=== PATIENT | female | born 1970 | race Caucasian/White ===

== ENCOUNTER 2018-05-11 18:15 | Observation (INO) | payer OTHER ==
--- NOTE | 2018-05-11 20:43 | XR ---
EXAMINATION TYPE: XR chest 1V portable DATE OF EXAM: 05/11/2018 COMPARISON: NONE HISTORY: Short of breath TECHNIQUE: Single frontal view of the chest is obtained. FINDINGS: There is complete opacification left hemithorax. Heart and mediastinum are shifted slightl y to the right side. Right lung is clear. There is no heart failure. Bony thorax is intact. IMPRESSION: Tension left side hydrothorax.
--- NOTE | 2018-05-11 20:43 | XR ---
EXAMINATION TYPE: XR chest 2V DATE OF EXAM: 05/11/2018 COMPARISON: Today HISTORY: Pain TECHNIQUE: Frontal and lateral views of the chest are obtained. FINDINGS: There is complete opacification left hemithorax. Heart and mediastinum are deviated slight ly to the right side. Right lung is clear. There is no heart failure. IMPRESSION: There is tension left side hydrothorax. No change compared to exam 20 minutes ago.
[2018-05-11 21:06] LABS: Basophils % (A) 0 %; Eosinophils # (A) 0.2 k/uL (0-0.7); Eosinophils % (A) 2 %; HGB 14.7 gm/dL (11.4-16.0); Lymphocytes % (A) 12 %; MCH 28.5 pg (25.0-35.0); MCV 88.9 fL (80.0-100.0); Mean Platelet Volume 7.6; Monocytes # (A) 0.4 k/uL (0-1.0); Monocytes % (A) 5 %; Neutrophils # (A) 6.9 k/uL (1.3-7.7); Neutrophils % (A) 80 %; Platelet Count 243 k/uL (150-450); RBC 5.18 m/uL (3.80-5.40); RDW 13.4 % (11.5-15.5); WBC 8.6 k/uL (3.8-10.6)
[2018-05-11] MEDS: SODIUM CHLORIDE 0.9% 1,000 ML IV STA ×2 (21:09→21:12)
[2018-05-11] MEDS ORDERED: SODIUM CHLORIDE 0.9% 500 ML 500 ML IV ONE (21:13)
--- NOTE | 2018-05-11 21:14 | ED ---
Medical Decision Making - Medical Decision Making I, Mike Cohen, personally saw and examined the patient. I have reviewed and agree with the PA findings, including all diagnostic interpretations and treatment plans as written unless otherwise stated. I was present for the gonzalez portions of any procedures performed and the inclusive time noted for any critical care statement. - Lab Data Result diagrams: 05/13/18 06:26 12 06:26 Disposition Clinical Impression: Hydrothorax, Dyspnea Disposition: ADMITTED IP TO THIS [facility] Condition: Good
[2018-05-11 21:15] LABS: ALT 31 U/L (9-52); AST 18 U/L (14-36); Albumin 4.5 g/dL (3.5-5.0); Alkaline Phosphatase 81 U/L (38-126); Anion Gap 9 mmol/L; Blood Urea Nitrogen 12 mg/dL (7-17); Calcium 9.9 mg/dL (8.4-10.2); Carbon Dioxide 25 mmol/L (22-30); Chloride 108 mmol/L (98-107); Glucose 122 mg/dL (74-99); Potassium 4.1 mmol/L (3.5-5.1); Sodium 142 mmol/L (137-145); Total Bilirubin 0.8 mg/dL (0.2-1.3); Total Protein 7.8 g/dL (6.3-8.2)
--- NOTE | 2018-05-11 22:16 | ED ---
General Adult HPI - General Chief complaint: Shortness of Breath Stated complaint: poss collapsed lung Source: patient, RN notes reviewed, old records reviewed Mode of arrival: wheelchair Limitations: no limitations - History of Present Illness Initial comments: 48-year-old female patient with no pertinent past medical history presents to ED with approximately 1 month of shortness of breath. Patient was seen by her primary care physician today, PCP today chest x-ray, displayed abnormal findings recommended patient to present to ED. Patient was evaluated by her primary care physician approximately 1 month ago, patient was diagnosed with bronchitis. Patient has had persistent shortness of breath duration of last month. Patient has additionally had waxing and waning productive cough for the last month. Patient denies chest pain, abdominal pain, nausea vomiting diarrhea , fever or chills. Systemic: Pt denies fatigue, myalgia, fever/chills, rash. Pt denies weakness, night sweats, weight loss. Neuro: Pt denies headache, visual disturbances, syncope or pre-syncope. HEENT: Pt denies ocular discharge or irritation, otalgia, rhinorrhea, pharyngitis or notable lymphadenopathy. Cardiopulmonary: Pt denies chest pain, SOB, heart palpitations, dyspnea on exertion. Abdominal/GI: Pt denies abdominal pain, n/v/d. : Pt denies dysuria, burning w/ urination, frequency/urgency. Denies new onset urinary or bowel incontinence. MSK: Pt denies myalgia, loss of strength or function in extremities. Neuro: Pt denies new onset weakness, paresthesias. - Related Data Home Medications Medication Instructions Recorded Confirmed Ibuprofen [Motrin Ib] 400 mg PO Q6H 05/11/18 05/11/18 Allergies Allergy/AdvReac Type Severity Reaction Status Date / Time No Known Allergies Allergy Verified 05/11/18 20:39 Review of Systems ROS Statement: Those systems with pertinent positive or pertinent negative responses have been documented in the HPI. ROS Other: All systems not noted in ROS Statement are negative. Past Medical History Past Medical History: No Reported History History of Any Multi-Drug Resistant Organisms: None Reported Past Surgical History: No Surgical Hx Reported Past Psychological History: No Psychological Hx Reported Smoking Status: Never smoker Past Alcohol Use History: None Reported Past Drug Use History: None Reported General Exam - General Exam Comments Initial Comments: Constitutional: NAD, AOX3, Pt has pleasant affect. HEENT: NC/AT, trachea midline, neck supple, no lymphadenopathy. Posterior pharynx non erythematous, without exudates. External ears appear normal, without discharge. Mucous membranes moist. Eyes PERRLA, EOM intact. There is no scleral icterus. No pallor noted. Cardiopulmonary: RRR, no murmurs, rubs or gallops, no JVD noted. Lungs CTA be in anterior and posterior galvin of right lobe, diminished breath sounds anteriorly and posteriorly and left lobe. No peripheral edema. Abdominal exam: Abdomen soft and non-distended. Abdomen non-tender to palpation in all 4 quadrants. Bowel sounds active in LLQ. No hepatosplenomegaly. No ecchymosis Neuro: CN II-XII grossly intact. No nuchal rigidity. MSK: No posterior calf tenderness bilaterally, homans sign negative bilaterally. Posterior tibialis and radial pulse +2 bilaterally. Sensation intact in upper and lower extremities. Full active ROM in upper and lower extremities, 5/5 stregnth. Limitations: no limitations Course Vital Signs 05/11/18 05/11/18 05/11/18 18:49 20:36 21:21 Temperature 99.3 F Pulse Rate 87 84 86 Respiratory 20 20 18 Rate Blood Pressure 167/92 175/91 152/83 O2 Sat by Pulse 95 96 97 Oximetry 05/11/18 23:30 Temperature Pulse Rate 84 Respiratory 20 Rate Blood Pressure 157/100 O2 Sat by Pulse 96 Oximetry Medical Decision Making - Medical Decision Making 48-year-old female patient with no pertinent past medical history presents to ED with approximately 1 month of shortness of breath. Patient was seen by her primary care physician today, PCP today chest x-ray, displayed abnormal findings recommended patient to present to ED. Patient was evaluated by her primary care physician approximately 1 month ago, patient was diagnosed with bronchitis. Patient has had persistent shortness of breath duration of last month. Patient has additionally had waxing and waning productive cough for the last month. Patient had recent azithromycin antibiotic treatment. Patient denies chest pain, abdominal pain, nausea vomiting diarrhea, fever or chills. Physical exam displayed denies profound in left lobe. No other pathologic findings noted. Plain films displayed tension left hydrothorax. CT anterior displayed left-sided hydro-thorax that waxes left lung. No sample embolism. There is mild tension left hydrothorax. Pericardial effusion. CBC was not impressive. CMP was non-impressive. Troponin negative. BNP within normal limits. Patient to be admitted for further evaluation. Case discussed with Dr. Cohen. - Lab Data Result diagrams: 05/11/18 20:55 05/11/18 20:55 Lab Results 05/11/18 05/11/18 05/11/18 Range/Units 20:55 20:55 20:55 WBC 8.6 (3.8-10.6) k/uL RBC 5.18 (3.80-5.40) m/uL Hgb 14.7 (11.4-16.0) gm/dL Hct 46.0 (34.0-46.0) % MCV 88.9 (80.0-100.0) fL MCH 28.5 (25.0-35.0) pg MCHC 32.0 (31.0-37.0) g/dL RDW 13.4 (11.5-15.5) % Plt Count 243 (150-450) k/uL Neutrophils % 80 % Lymphocytes % 12 % Monocytes % 5 % Eosinophils % 2 % Basophils % 0 % Neutrophils # 6.9 (1.3-7.7) k/uL Lymphocytes # 1.0 (1.0-4.8) k/uL Monocytes # 0.4 (0-1.0) k/uL Eosinophils # 0.2 (0-0.7) k/uL Basophils # 0.0 (0-0.2) k/uL Sodium 142 (137-145) mmol/L Potassium 4.1 (3.5-5.1) mmol/L Chloride 108 H (98-107) mmol/L Carbon Dioxide 25 (22-30) mmol/L Anion Gap 9 mmol/L BUN 12 (7-17) mg/dL Creatinine 0.82 (0.52-1.04) mg/dL Est GFR (CKD-EPI)AfAm >90 (>60 ml/min/1.73 sqM) Est GFR (CKD-EPI)NonAf 84 (>60 ml/min/1.73 sqM) Glucose 122 H (74-99) mg/dL Calcium 9.9 (8.4-10.2) mg/dL Total Bilirubin 0.8 (0.2-1.3) mg/dL AST 18 (14-36) U/L ALT 31 (9-52) U/L Alkaline Phosphatase 81 (38-126) U/L Troponin I <0.012 (0.000-0.034) ng/mL NT-Pro-B Natriuret Pep pg/mL Total Protein 7.8 (6.3-8.2) g/dL Albumin 4.5 (3.5-5.0) g/dL 05/11/18 Range/Units 20:55 WBC (3.8-10.6) k/uL RBC (3.80-5.40) m/uL Hgb (11.4-16.0) gm/dL Hct (34.0-46.0) % MCV (80.0-100.0) fL MCH (25.0-35.0) pg MCHC (31.0-37.0) g/dL RDW (11.5-15.5) % Plt Count (150-450) k/uL Neutrophils % % Lymphocytes % % Monocytes % % Eosinophils % % Basophils % % Neutrophils # (1.3-7.7) k/uL Lymphocytes # (1.0-4.8) k/uL Monocytes # (0-1.0) k/uL Eosinophils # (0-0.7) k/uL Basophils # (0-0.2) k/uL Sodium (137-145) mmol/L Potassium (3.5-5.1) mmol/L Chloride (98-107) mmol/L Carbon Dioxide (22-30) mmol/L Anion Gap mmol/L BUN (7-17) mg/dL Creatinine (0.52-1.04) mg/dL Est GFR (CKD-EPI)AfAm (>60 ml/min/1.73 sqM) Est GFR (CKD-EPI)NonAf (>60 ml/min/1.73 sqM) Glucose (74-99) mg/dL Calcium (8.4-10.2) mg/dL Total Bilirubin (0.2-1.3) mg/dL AST (14-36) U/L ALT (9-52) U/L Alkaline Phosphatase (38-126) U/L Troponin I (0.000-0.034) ng/mL NT-Pro-B Natriuret Pep 54 pg/mL Total Protein (6.3-8.2) g/dL Albumin (3.5-5.0) g/dL - EKG Data -: EKG Interpreted by Me EKG Comments: Ventricular rate 80, PA interval 124, QRS 82, QT/QTc is unsuccessful at 33. Disposition Clinical Impression: Hydrothorax Disposition: ADMITTED IP TO THIS HOSP Condition: Good Is patient prescribed a controlled substance at d/c from ED?: No Referrals: Al Lezama DO [Primary Care Provider] - 1-2 days Decision Time: 23:21
--- NOTE | 2018-05-11 23:04 | CT ---
EXAMINATION TYPE: CT chest angio for PE DATE OF EXAM: 05/11/2018 COMPARISON: None HISTORY: SOB CT DLP: 672.5 mGycm Automated exposure control for dose reduction was used. CONTRAST: CT Chest for pulmonary embolism performed with with IV Contrast, patient injected with 100 mL of Isov ue 370. FINDINGS: There are 3-D post processed images. There is essentially complete opacification left hemithorax. The re is a large left pleural effusion. There is complete atelectasis left lung. Left mainstem bronchus is patent. Heart and mediastinum are shifted to the right side. There is an enlarged right bronchial lymph node measures 2.4 cm. I see no mass at the left pulmonary hilum. There is enlarged 2 cm pretrac heal lymph node. I see no filling defects in the pulmonary arteries. Thoracic aorta shows no sign of aneurysm or dissection. The right lung is clear of consolidation. There is no pleural fluid on the ri ght side.. There is fluid around the heart that measures 1.5 cm. Bony thorax is intact. IMPRESSION: Left-sided hydrothorax with atelectasis left lung. No evidence of pulmonary embolism. There is mild t ension left hydrothorax. Pericardial effusion. Cardiomegaly. Nonspecific enlarged lymph nodes.
[2018-05-11] MEDS ORDERED: ACETAMINOPHEN TAB 325 MG TAB PO PRN (23:13)
[2018-05-11] MEDS ORDERED: NALOXONE 0.4 MG/ML 1 ML VIAL IV PRN (23:13)
[2018-05-11] MEDS ORDERED: IBUPROFEN 400 MG TAB PO PRN (23:13)
--- NOTE | 2018-05-12 01:49 | US ---
EXAMINATION TYPE: US chest DATE OF EXAM: 05/12/2018 COMPARISON: NONE CLINICAL HISTORY: Pain. Pleural effusion. TECHNIQUE: Targeted ultrasound of the posterior lower left hemithorax EXAM MEASUREMENTS: Left Pleural Effusion pocket size: 12.1 cm Left skin surface to fluid distance: 5.6 cm Left side marked for possible thoracentesis outside the dept. Pulmonologists are able to review the images in the patient?s EMR. IMPRESSIONS: There is demonstration of a large left pleural effusion. Left lung appears collapsed.
[2018-05-12 02:12] VITALS: RESP 16
[2018-05-12] MEDS ORDERED: ALPRAZolam 0.25 MG TAB PO PRN (02:22)
[2018-05-12 07:39] LABS: Basophils % (A) 0 %; Eosinophils # (A) 0.2 k/uL (0-0.7); Eosinophils % (A) 2 %; HCT 45.2 % (34.0-46.0); HGB 14.8 gm/dL (11.4-16.0); Lymphocytes % (A) 13 %; MCH 29.6 pg (25.0-35.0); MCHC 32.6 g/dL (31.0-37.0); MCV 90.7 fL (80.0-100.0); Mean Platelet Volume 7.8; Monocytes # (A) 0.4 k/uL (0-1.0); Monocytes % (A) 6 %; Neutrophils % (A) 77 %; Platelet Count 218 k/uL (150-450); RBC 4.99 m/uL (3.80-5.40); RDW 13.5 % (11.5-15.5); WBC 7.7 k/uL (3.8-10.6)
[2018-05-12 07:48] LABS: Anion Gap 7 mmol/L; Blood Urea Nitrogen 10 mg/dL (7-17); Calcium 9.6 mg/dL (8.4-10.2); Carbon Dioxide 28 mmol/L (22-30); Chloride 108 mmol/L (98-107); Glucose 94 mg/dL (74-99); Potassium 4.3 mmol/L (3.5-5.1); Sodium 143 mmol/L (137-145)
[2018-05-12] MEDS ORDERED: LIDOCAINE 1% INJ 10MG/ML (20 ML MDV) SQ ONE (09:12)
[2018-05-12] MEDS ORDERED: IPRATROPIUM-ALBUTEROL 3 ML NEB INHALATION PRN (10:55)
--- NOTE | 2018-05-12 10:55 | P.HPIM ---
History of Present Illness H&P Date: 05/12/18 This is a very pleasant 48-year-old female with no significant past medical history comes into the ER for above-mentioned complaints. Patient says that she 's been following with her PCP in 1 month for cough which the PCP diagnosed as bronchitis and she was put on steroids, Z-Peter, breathing treatments. The symptoms are not improving so the PCP decided to do a chest x-ray which was done yesterday. The chest x-ray came abnormal according to the patient to the PCV7 the patient earlier for further evaluation and management with patient says that she's been having cough since about 1 month which is productive of greenish phlegm in the morning but otherwise is dry most of the day. She is complaining of shortness of breath on exertion but at rest she is okay. She otherwise does not complain of any chest pain, racing heart, no bowel pain, no nausea or vomiting, or diarrhea constipation, no tingling numbness of any of the extremities, no itch no rash. She does not complain of any fever or chills REVIEW OF SYSTEMS: ENT: No diminished vision or hearing. CARDIOVASCULAR: No chest pain or racing heart RESPIRATORY: As mentioned earlier. GI: No nauscea, vomiting or diarrhea. : No dysuria or retention. NERVOUS SYSTEM: No numbness or weakness. ALLERGY/IMMUNOLOGY: No asthma or hay fever. MUSCULOSKELETAL: Pain in the right rib while coughing but otherwise no significant pain. HEMATOLOGY/ONCOLOGY: No history of anemia. ENDOCRINE: No history of diabetes or hypothyroidism. DERMATOLOGY: Negative. RHEUMATOLOGY: Negative. Review of Systems All systems: negative Past Medical History Past Medical History: No Reported History History of Any Multi-Drug Resistant Organisms: None Reported Past Surgical History: No Surgical Hx Reported Past Anesthesia/Blood Transfusion Reactions: No Reported Reaction Past Psychological History: No Psychological Hx Reported Smoking Status: Never smoker Past Alcohol Use History: None Reported Past Drug Use History: None Reported - Past Family History Mother Additional Family Medical History / Comment(s): 2009 heart valve replaced Father Family Medical History: No Reported History Medications and Allergies Home Medications Medication Instructions Recorded Confirmed Type Ibuprofen [Motrin Ib] 400 mg PO Q6H 05/11/18 05/11/18 History Allergies Allergy/AdvReac Type Severity Reaction Status Date / Time No Known Allergies Allergy Verified 05/11/18 20:39 Physical Exam Vitals: Vital Signs Temp Pulse Pulse Resp BP BP Pulse Ox 05/12/18 07:45 96.3 F L 76 16 182/78 96 05/12/18 02:16 173/76 05/12/18 02:00 98.2 F 79 16 175/86 95 05/12/18 01:44 159/87 05/12/18 01:40 97.8 F 73 18 96 05/12/18 00:00 80 17 177/96 97 05/11/18 23:30 84 20 157/100 96 05/11/18 22:01 78 16 152/83 97 05/11/18 21:21 86 18 152/83 97 05/11/18 20:36 84 20 175/91 96 05/11/18 18:49 99.3 F 87 20 167/92 95 Intake and Output 05/11/18 05/12/18 05/12/18 22:59 06:59 14:59 Intake Total 530 220 Balance 530 220 Intake: Intake, IV Titration 50 Amount cefTRIAXone 1,000 mg In 50 Sodium Chloride 0.9% 50 ml @ 100 mls/hr IVPB Q24H [facility] Rx#:[id number] Oral 480 220 Other: # Voids 1 Weight 113.398 kg On exam, alert and oriented x3. HEENT: Conjunctivae normal. eyes normal. NECK: No JVD. No thyroid enlargement. No LNs CARDIOVASCULAR: S1, S2 muffled. No murmur RESPIRATION: Breath sounds diminished on the left side. Otherwise there is no rhonchi no rales no wheezing ABDOMEN: Soft, nontender . No guarding. no masses palpable. No ascites, No hepatosplenomegaly.Bowel sounds heard. LEGS: No edema. no swelling NERVOUS SYSTEM: Cranial N 2-12 grossly normal. Moves all 4 limbs. No focal deficits. No sensory deficit. No signs of cerebellar dysfucntion. Skin: no ulcer no rash Joints: No active swelling. No inflammation. Lymphatic system. No LN neck axilla or groin. Results CBC & Chem 7: 05/12/18 07:17 05/12/18 07:17 Labs: Abnormal Lab Results - Last 24 Hours (Table) 05/11/18 05/12/18 Range/Units 20:55 07:17 Chloride 108 H 108 H (98-107) mmol/L Glucose 122 H (74-99) mg/dL Thrombosis Risk Factor Assmnt - Choose All That Apply Any of the Below Risk Factors Present?: Yes Each Factor Represents 1 point: Age 41-60 years Other Risk Factors: No Thrombosis Risk Factor Assessment Total Risk Factor Score: 1 Thrombosis Risk Factor Assessment Level: Low Risk Assessment and Plan Assessment: - Left-sided hydrothorax - Been treated as an outpatient for possible bronchitis - Obesity - Hypertension while in the hospital but otherwise patient has no history of hypertension Plan: - Patient has been admitted to [facility] - Pulmonology is consulted who are actually seeing the patient without medication - Further recommendations regarding antibiotic and further plan of care as per pulmonology recommendation - Patient blood pressure is high and his stay. We'll keep a watch the patient' s blood pressure. If it continues to be high then patient might need to be put on antihypertensives - Hold off chemical DVT prophylaxis as the patient will probably end up getting thoracentesis - We'll order for lab work in the morning - Expected length of stay is more than 2 midnights - Patient is full code Time with Patient: Greater than 30
--- NOTE | 2018-05-12 11:48 | XR ---
EXAMINATION TYPE: XR chest 1V portable DATE OF EXAM: 05/12/2018 COMPARISON: Abnormal x-ray HISTORY: Attempted left thoracentesis TECHNIQUE: Single frontal view of the chest is obtained. FINDINGS: There is complete opacification left hemithorax. Subsegmental changes involving the right lung base are stable. Suspect the heart size is limited. No obvious pneumothorax. IMPRESSION: Persistent complete opacification left hemithorax. No sizable pneumothorax. Right basila r subsegmental changes are stable.
[2018-05-12] MEDS ORDERED: hydrALAZINE HCL 20 MG/ML 1 ML VIAL IVP PRN (12:02)
--- NOTE | 2018-05-12 12:16 | ECHOF ---
Referral Reason:lv function MEASUREMENTS -------- HEIGHT: 162.6 cm WEIGHT: 113.4 kg BP: 173/76 IVSd: 1.4 cm (0.6 - 1.1) LVIDd: 5.2 cm (3.9 - 5.3) LVPWd: 1.1 cm (0.6 - 1.1) IVSs: 1.3 cm LVIDs: 2.8 cm LVPWs: 1.6 cm MV E Lawson: 1.03 m/s MV DecT: 189 ms MV A Lawson: 1.26 m/s MV E/A Ratio: 0.82 RAP: 5.00 mmHg RVSP: 11.42 mmHg FINDINGS -------- Sinus rhythm. This was a technically difficult study with suboptimal views. The left ventricular size is normal. There is mild concentric left ventricular hypertrophy. Overa ll left ventricular systolic function is normal with, an EF between 55 - 60 %. The RV was not well visualized. The left atrium was not well visualized. The right atrium was not well visualized. Lumason used The aortic valve was not well visualized. The mitral valve was not well visualized. The tricuspid valve was not well visualized. The pulmonic valve was not well visualized. There is a small, generalized pericardial effusion present. Large Pleural Effusion. CONCLUSIONS -------- 1. Sinus rhythm. 2. This was a technically difficult study with suboptimal views. 3. The left ventricular size is normal. 4. There is mild concentric left ventricular hypertrophy. 5. Overall left ventricular systolic function is normal with, an EF between 55 - 60 %. 6. The RV was not well visualized. 7. The left atrium was not well visualized. 8. The right atrium was not well visualized. 9. Lumason used 10. The aortic valve was not well visualized. 11. The mitral valve was not well visualized. 12. The tricuspid valve was not well visualized. 13. The pulmonic valve was not well visualized. 14. There is a small, generalized pericardial effusion present. 15. Large Pleural Effusion. IC ENGINEER: Christine Myers [facility]
[2018-05-12 13:21] LABS: Prothrombin Time 10.9 sec (9.0-12.0)
--- NOTE | 2018-05-12 14:09 | P.GSCN ---
History of Present Illness Consult date: 05/12/18 Reason for Consult: Hydrothorax History of present illness: This is a 48-year-old female who is admitted to the hospital for workup of shortness of breath. Patient underwent CT and chest x-rays found have a left hydrothorax. Past Medical History Past Medical History: No Reported History History of Any Multi-Drug Resistant Organisms: None Reported Past Surgical History: No Surgical Hx Reported Past Anesthesia/Blood Transfusion Reactions: No Reported Reaction Past Psychological History: No Psychological Hx Reported Smoking Status: Never smoker Past Alcohol Use History: None Reported Past Drug Use History: None Reported - Past Family History Mother Additional Family Medical History / Comment(s): 2008 heart valve replaced Father Family Medical History: No Reported History Medications and Allergies Home Medications Medication Instructions Recorded Confirmed Type Ibuprofen [Motrin Ib] 400 mg PO Q6H 05/11/18 05/11/18 History Allergies Allergy/AdvReac Type Severity Reaction Status Date / Time No Known Allergies Allergy Verified 05/11/18 20:39 Surgical - Exam Vital Signs Temp Pulse Resp BP Pulse Ox 99.3 F 87 20 167/92 95 05/11/18 18:49 05/11/18 18:49 05/11/18 18:49 05/11/18 18:49 05/11/18 18:49 - General well developed, no distress - Eyes PERRL - ENT normal pinna - Neck no masses - Respiratory normal expansion - Cardiovascular Rhythm: regular - Abdomen Abdomen: soft, non tender Results - Labs 05/12/18 07:17 05/12/18 07:17 Abnormal Lab Results - Last 24 Hours (Table) 05/11/18 05/12/18 Range/Units 20:55 07:17 Chloride 108 H 108 H (98-107) mmol/L Glucose 122 H (74-99) mg/dL Diabetes panel 05/11/18 05/12/18 05/12/18 Range/Units 20:55 07:17 07:17 Sodium 142 143 (137-145) mmol/L Potassium 4.1 4.3 (3.5-5.1) mmol/L Chloride 108 H 108 H (98-107) mmol/L Carbon Dioxide 25 28 (22-30) mmol/L BUN 12 10 (7-17) mg/dL Creatinine 0.82 0.85 (0.52-1.04) mg/dL Glucose 122 H 94 (74-99) mg/dL Calcium 9.9 9.6 (8.4-10.2) mg/dL AST 18 (14-36) U/L ALT 31 (9-52) U/L Alkaline Phosphatase 81 (38-126) U/L Total Protein 7.8 7.0 (6.3-8.2) g/dL Albumin 4.5 (3.5-5.0) g/dL Calcium panel 05/11/18 05/12/18 Range/Units 20:55 07:17 Calcium 9.9 9.6 (8.4-10.2) mg/dL Albumin 4.5 (3.5-5.0) g/dL Pituitary panel 05/11/18 05/12/18 Range/Units 20:55 07:17 Sodium 142 143 (137-145) mmol/L Potassium 4.1 4.3 (3.5-5.1) mmol/L Chloride 108 H 108 H (98-107) mmol/L Carbon Dioxide 25 28 (22-30) mmol/L BUN 12 10 (7-17) mg/dL Creatinine 0.82 0.85 (0.52-1.04) mg/dL Glucose 122 H 94 (74-99) mg/dL Calcium 9.9 9.6 (8.4-10.2) mg/dL Adrenal panel 05/11/18 05/12/18 05/12/18 Range/Units 20:55 07:17 07:17 Sodium 142 143 (137-145) mmol/L Potassium 4.1 4.3 (3.5-5.1) mmol/L Chloride 108 H 108 H (98-107) mmol/L Carbon Dioxide 25 28 (22-30) mmol/L BUN 12 10 (7-17) mg/dL Creatinine 0.82 0.85 (0.52-1.04) mg/dL Glucose 122 H 94 (74-99) mg/dL Calcium 9.9 9.6 (8.4-10.2) mg/dL Total Bilirubin 0.8 (0.2-1.3) mg/dL AST 18 (14-36) U/L ALT 31 (9-52) U/L Alkaline Phosphatase 81 (38-126) U/L Total Protein 7.8 7.0 (6.3-8.2) g/dL Albumin 4.5 (3.5-5.0) g/dL Assessment and Plan Assessment: Left hydrothorax. Patient will be evaluated by pulmonology. She'll most likely have a chest tube placed. We will remain on surgical standby.
--- NOTE | 2018-05-12 15:25 | CONS ---
CONSULTATION DATE OF SERVICE: 05/12/2018 This is a very pleasant 48-year-old female who has been struggling with difficulty breathing for some time now. It has probably been going on for months, maybe 6 or so. When she sits, she is not short of breath. When she exerts herself, even minimal exertion, becomes very short of breath. Over the course of the last 4-6 weeks or so, she has been seeing her primary doctor. The primary doctor is out in the [place] in [place], [place]. Anyway, the patient states that she has received numerous courses of antibiotics, steroids and other treatments and despite that, has not improved. In fact, she continued to get worse. Hence, chest x-ray was done which showed complete opacification of the left hemithorax and the patient was sent to the emergency room for evaluation. There she had a couple of chest x-rays and a CT scan of the chest. She was seen there by Dr. Telles and by another physician there. Anyway, she was admitted to the hospital with a diagnosis of large left pleural effusion. The patient denies other complaints. No fever, no chills. No weight loss. No nausea, vomiting or diarrhea. Her past medical and past surgical history is unremarkable. HOME MEDICATIONS: Only include Motrin. No known allergies. SOCIAL HISTORY: Negative for tobacco, alcohol, or illicit drug use. Family history is not commented on. She has a pretty benign history. REVIEW OF SYSTEMS: CONSTITUTIONAL: Negative. NEUROLOGIC: Negative. HEENT: Negative. CARDIOVASCULAR: Negative. PULMONARY: Shortness of breath. GI/: Negative. RHEUMATOLOGIC: Negative. HEMATOLOGIC: Negative. ENDOCRINOLOGIC: Negative. DERMATOLOGIC: Negative. Current vital signs are reviewed. Temperature 96.3, heart rate 76, respiratory rate 16, blood pressure 182/78 mean 112, room air saturation 96%. She appears in no acute distress. No respiratory distress. No audible wheezing. No use of accessory muscles. HEENT examination is grossly unremarkable. Mucous membranes are moist. No oral lesions. NECK: Supple. Full range of motion. No adenopathy or thyromegaly. Neck veins are flat. Cardiovascular examination reveals regular rhythm and rate. Heart rate 76. S1, S2 normal. No murmur. Lungs reveal severely diminished and dull breath sounds on the left side. There is dullness on percussion on the left side. No crackles or wheezes. No rhonchi. The right lung is relatively clear. Abdomen is soft but obese. Bowel sounds are heard. Extremities are intact. No cyanosis, clubbing, or edema. Skin without lesions. Neurologic examination is brief but nonfocal. LAB DATA: Reviewed. CBC is completely normal. Sodium and potassium normal. Chloride is 108, CO2 is 28, anion gap is 7. BUN and creatinine were 10 and 0.85. The rest of the labs look good. Microbiologic studies are pending or negative. Chest x-ray shows a complete opacification of left hemothorax. Likewise, this is seen on the CT scan. A CT angiogram suggests left-sided hydrothorax with atelectasis of the left lung. There was mild tension and left hydrothorax. No evidence of pulmonary embolism. Mildly nonspecific enlarged lymph nodes. There was a pericardial effusion as well. Medications are reviewed. She is currently on Tylenol, Xanax, Rocephin, hydralazine, Motrin, updrafts, lidocaine, Narcan, and an IV. ASSESSMENT: 1. Relatively new onset large left pleural effusion of unclear etiology. Malignancy and infection are the most likely etiologies. 2. No past medical history to speak of. 3. Lifelong nonsmoker. 4. Obesity. PLAN: We will attempt a thoracentesis. Additional recommendations and suggestions are forthcoming. The medications currently are appropriate. Depending on the results of the thoracentesis, additional recommendations will be made. MMODL / IJN: [id number] /
--- NOTE | 2018-05-12 16:10 | XR ---
EXAMINATION TYPE: XR chest 1V portable DATE OF EXAM: 05/12/2018 COMPARISON: 05/12/2018 HISTORY: Large left pleural effusion TECHNIQUE: Single frontal view of the chest is obtained. FINDINGS: There is a interval noticeable improvement with some persistent residual density particula rly within the left upper lobe. Right lung is clear. Heart remains enlarged and there is elevation le ft hemidiaphragm. No sizable pneumothorax. IMPRESSION: 1. Interval improvement in amount of pleural fluid. Residual consolidation noted. Consider bronchosco py. 2. No evidence of pneumothorax.
[2018-05-12 17:34] LABS: Appearance,BF Hazy; Color,BF Yellow; Nucleated Cells, Body Fluid 820 /uL; RBC, Body Fluid 585 /uL
[2018-05-12 17:36] LABS: Mononuclear WBC,Body Fluid 98 %; Polynuclear WBC,Body Fluid 1 %; Total Cells Counted,Body Fluid 100
--- NOTE | 2018-05-12 18:49 | PCN ---
PROCEDURE NOTE PROCEDURE: Left thoracentesis. PREOP DIAGNOSIS: Left pleural effusion. POSTOP DIAGNOSIS: Left pleural effusion. Indication Pleural effusion. A time-out was completed verifying correct patient, procedure, site, positioning , and implant (s) or special equipment if applicable. Ultrasound guidance was used and appropriate fluid pocket was identified and marked. Patient was positioned, prepped and draped in usual sterile fashion. Lidocaine was used to anesthetize the area. A Thoracentesis catheter was introduced into the pleural space and fluid was removed. Blood loss was none. A chest x-ray was ordered to evaluate for pneumothorax. Total Fluid Removed: 2 or 3 mL Color of Fluid Fluid was not sent for appropriate laboratory tests. Patient tolerated the procedure well and there were no complications. There was informed consent. There was universal timeout. The posterior chest was marked by ultrasound. I made 2 attempts to remove fluid from the left pleural space. Both times, I was able to get into the pleural space with a smaller needle and removed about 2 or 3 mL of fluid, but with a large needle, I could not remove the fluid. It appears that maybe the fluid depth was such that I could not get into the pocket. Anyway, the patient tolerated the procedure well x2. There was no immediate complication. A chest x-ray was ordered. We are going to ask Interventional Radiology to see if they can drain the fluid. No fluid was sent for analysis. There was no immediate complication. MMODL / IJN: [id number] /
[2018-05-13 05:43] LABS: Total Protein, Body Fluid >2400 mg/dL
[2018-05-13 07:24] LABS: Basophils % (A) 0 %; Eosinophils # (A) 0.2 k/uL (0-0.7); Eosinophils % (A) 3 %; HGB 13.9 gm/dL (11.4-16.0); Lymphocytes % (A) 14 %; MCH 29.1 pg (25.0-35.0); MCHC 32.2 g/dL (31.0-37.0); MCV 90.3 fL (80.0-100.0); Mean Platelet Volume 7.9; Monocytes # (A) 0.5 k/uL (0-1.0); Monocytes % (A) 7 %; Neutrophils # (A) 5.6 k/uL (1.3-7.7); Neutrophils % (A) 76 %; Platelet Count 185 k/uL (150-450); RBC 4.77 m/uL (3.80-5.40); RDW 13.3 % (11.5-15.5); WBC 7.4 k/uL (3.8-10.6)
[2018-05-13 07:33] LABS: Anion Gap 6 mmol/L; Blood Urea Nitrogen 11 mg/dL (7-17); Calcium 9.1 mg/dL (8.4-10.2); Carbon Dioxide 26 mmol/L (22-30); Chloride 110 mmol/L (98-107); Glucose 83 mg/dL (74-99); Potassium 4.5 mmol/L (3.5-5.1); Sodium 142 mmol/L (137-145)
--- NOTE | 2018-05-13 09:13 | P.PN ---
Subjective Progress Note Date: 05/13/18 Pleasant 48-year-old female with no significant past medical history comes to the ER for shortness of breath and cough and abnormal chest x-ray which was done as an outpatient. The patient apparently was dealing with cough and shortness of breath about one month and she was put on steroids Z-Peter and breathing treatments with no improvement. PCP ordered a chest x-ray on the morning of admission which showed abnormalities so she was directed to the ER for further evaluation and management. In the ER CTA was done which showed left hydrothorax. 05/13/2018 Patient had thoracentesis done in about 1 L of fluid removed from the left lung Repeat chest x-ray shows consolidation. Pulmonology following the case Patient says that her shortness of breath has improved and she was able to take shower today She does not complain of any fever or chills, no chest pain or racing heart, no abdominal pain, nausea and vomiting, no diarrhea constipation Objective - Vital Signs Vital signs: Vital Signs Temp 99.0 F 05/13/18 07:58 Pulse 76 05/13/18 07:58 Resp 16 05/13/18 07:58 BP 156/88 05/13/18 07:58 Pulse Ox 100 05/13/18 07:58 Intake & Output 05/12/18 05/13/18 05/13/18 18:59 06:59 18:59 Intake Total 540 120 Balance 540 120 Intake: Oral 540 120 Other: # Voids 1 - Exam On exam, alert and oriented x3. HEENT: Conjunctivae normal. eyes normal. NECK: No JVD. No thyroid enlargement. No LNs CARDIOVASCULAR: S1, S2 muffled. No murmur RESPIRATION: Breath sounds diminished on the left side but improved from yesterday. No rhonchi or crackles. No bronchial breathing. ABDOMEN: Soft, nontender . No guarding. no masses palpable. No ascites, No hepatosplenomegaly.Bowel sounds heard. LEGS: No edema. no swelling NERVOUS SYSTEM: Cranial N 2-12 grossly normal. Moves all 4 limbs. No focal deficits. No sensory deficit. No signs of cerebellar dysfucntion. Skin: no ulcer no rash Joints: No active swelling. No inflammation. Lymphatic system. No LN neck axilla or groin. - Labs CBC & Chem 7: 05/13/18 06:26 05/13/18 06:26 Labs: Abnormal Lab Results - Last 24 Hours (Table) 05/13/18 Range/Units 06:26 Chloride 110 H (98-107) mmol/L Microbiology - Last 24 Hours (Table) 05/12/18 16:13 Gram Stain - Preliminary Pleural Fluid Body Fluid Culture - Preliminary 05/12/18 15:40 Anaerobic Culture - Preliminary Thoracentesis Fluid Assessment and Plan Assessment: - Left-sided hydrothorax status post thoracentesis done on 05/12/2018. Repeat chest x-ray showing consolidation - Been treated as an outpatient for possible bronchitis - Obesity - Hypertension while in the hospital blood pressure more stable today Plan: - Patient has been admitted to [facility] - Pulmonology following the patient. On Rocephin. Further antibiotic recommendations as per pulmonology - She had iron guided thoracentesis with 860 mL of fluid removed. She might have a repeat thoracentesis done today. - Blood pressure is much better controlled - Continue breathing treatments when necessary - Continue rest of the treatment - We'll continue to follow the patient Time with Patient: Greater than 30
--- NOTE | 2018-05-13 11:25 | CT ---
EXAMINATION TYPE: CT guided thoracentesis DATE OF EXAM: 05/12/2018 COMPARISON: Chest x-ray 05/12/2018 HISTORY: CT guided thoracentesis. Pulmonology attempted a thoracentesis and was unsuccessful and has requested radiology to attempt. CT DLP: 851 mGycm The procedure is discussed with the patient, the risks, complications, benefits and alternatives, wer e discussed and any questions were answered. Informed consent was obtained. The patient is placed p omi on the CT table, prepped and draped in the usual sterile fashion. Utilizing a 22-gauge Chiba needle access into the left pleural space was achieved and there is remova l of approximately 900 cc of serous fluid.. All elements of maximal barrier and sterile technique we re utilized. The patient remained stable throughout the procedure with no immediate postprocedural c omplication. IMPRESSION: 1. Successful CT guided left thoracentesis
--- NOTE | 2018-05-13 14:04 | P.PN ---
Progress Note - Text Progress Note Date: 05/13/18 The patient is resting comfortably in her bed. She underwent thoracentesis yesterday. She states her shortness of breath has improved. On exam her vital signs are stable. Abdomen soft. Chest is clear. Status post thoracentesis for left hydrothorax. Approximately 800 mL cc of fluid was removed. The patient will be worked up by the kiln firer. No general surgical intervention is planned. We will sign off.
[2018-05-13 14:20] VITALS: BP 169/88; PULSE 80; TEMP 98.2
--- NOTE | 2018-05-13 16:04 | PN ---
PROGRESS NOTE DATE OF SERVICE: 05/13/2018. This is a very pleasant 48-year-old female that we saw yesterday in consultation. She had some difficulty with breathing that had been going on for months. We attempted a thoracentesis on her yesterday. She had a large left pleural effusion. Unfortunately, because of body habitus, I could not adequately get into the pleural space to drain the fluid. I tried 2 different times. Anyway, we did ask Interventional Radiology to consider thoracentesis. They did do it. They removed 900 mL of fluid from the left pleural space. The results are pending. We recommend that they send it for cytology and chemistry including LDH, protein, glucose, as well as microbiologic studies. The patient is feeling much better regarding her shortness of breath and could go home. We told her that it would be okay for her to go home and follow up with us in the office. Anyway, the patient may consider that. Again, her breathing is much improved. Current vital signs are reviewed. Room air saturations 100%, temperature 99, heart rate 76, respiratory rate 16, blood pressure 156/88, mean 110. Appears in no acute distress. HEENT examination is grossly unremarkable. Mucous membranes are moist. Neck is supple. Full range of motion. No adenopathy. Cardiovascular examination reveals regular rhythm and rate. Heart rate 76. Lungs reveal diminished breath sounds on the left. There is dullness at the left base. A few scattered rhonchi noted on the left side. No wheezes or crackles. Abdomen is soft. Bowel sounds are heard. Extremities are intact. No cyanosis, clubbing, or edema. Skin without rash. Neurologic examination is brief but nonfocal. LABS: Reviewed. CBC entirely normal. Sodium, potassium normal, chloride 110, CO2 is 26, anion gap is 6, BUN and creatinine were 11 and 0.87. The fluid analysis shows it to be technically still a transudate. The glucose was 108. The total protein was 2.4 g. The LDH was 135. There are many mesothelial cells there. In addition, there 585 RBCs and 820 nucleated cells. Most of the cells were mononuclear cells. Chest x-rays reviewed. The procedure by Dr. Garcia is reviewed. ASSESSMENT: 1. Relatively new onset of large left pleural effusion of unclear etiology. Malignancy and infection are most likely etiologies. The patient did have a thoracentesis performed by Interventional Radiology yesterday and roughly 900 mL of fluid was removed. 2. Two different attempts at a thoracentesis by myself yesterday, unsuccessful, secondary to patient's body habitus. 3. No past medical history to speak of. 4. Lifelong nonsmoker. 5. Obesity. PLAN: We will await the results. I gave the patient my card. I would like to see her in the office, so we can follow up with her. She asked me whether or not this effusion requires any treatment. I told depends on what the effusion shows. We will await the results. In the meantime, should she have increasing shortness of breath again , she should come to the emergency room. Additional recommendations and suggestions are forthcoming. Prognosis is guarded. MMROLOL / RAMRION: [id number] / MTDD
--- NOTE | 2018-05-13 17:15 | P.DS ---
Providers Date of admission: 05/11/18 23:14 Expected date of discharge: 05/13/18 Attending physician: Pavel Jenkins Consults: 05/11/18 23:50 Consult Physician Stat Consulting Provider: Leroy Rivas Consult Reason/Comments: hydrothorax Do you want consulting provider notified?: Yes 05/12/18 02:27 Consult Physician Routine Consulting Provider: Abhi Mota Consult Reason/Comments: hydrothorax Do you want consulting provider notified?: Yes [facility] Course: Pleasant 48-year-old female with no significant past medical history comes to the ER for shortness of breath and cough and abnormal chest x-ray which was done as an outpatient. The patient apparently was dealing with cough and shortness of breath about one month and she was put on steroids Z-Peter and breathing treatments with no improvement. PCP ordered a chest x-ray on the morning of admission which showed abnormalities so she was directed to the ER for further evaluation and management. In the ER CTA was done which showed left hydrothorax. 05/13/2018 Patient had thoracentesis done in about 860ML of fluid removed from the left lung Repeat chest x-ray shows consolidation. Pulmonology following the case Patient says that her shortness of breath has improved and she was able to take shower today She does not complain of any fever or chills, no chest pain or racing heart, no abdominal pain, nausea and vomiting, no diarrhea constipation Awaiting results of thoracentesis fluid at the time of discharge. Pulmonology recommended no antibiotics for discharge untill the results are back. Further discussion regarding the antibiotics to be done at the follow up appointment with the health underwriter. Patient Condition at Discharge: Good Plan - Discharge Summary Discharge Rx Participant: Yes New Discharge Prescriptions: No Action Ibuprofen [Motrin Ib] 400 mg PO Q6H Discharge Medication List Ibuprofen [Motrin Ib] 400 mg PO Q6H 05/11/18 [History] Follow up Appointment(s)/Referral(s): Abhi Mota DO [Doctor of Osteopathic Medicine] - 1 Week (call to make or confirm appointment) Al Lezama DO [Primary Care Provider] - 1-2 days Activity/Diet/Wound Care/Special Instructions: If you atart having fever, chills, increased SOB, increased cough, lightheadedeness, dizziness, chest pain or pressure, you need to come back to the ER. Discharge Disposition: HOME SELF-CARE
== END 2018-05-13 18:50 | disposition home or self-care (01) ==
LOC: EC 18:15 → 4SSUR 23:14
PROVIDERS: ADMIT Hospitalist; ATTEND Hospitalist
DX: J90 Pleural effusion, not elsewhere classified (principal); J94.8 Other specified pleural conditions; I31.3 Pericardial effusion (noninflammatory); I10 Essential (primary) hypertension; Z82.49 Family history of ischemic heart disease and other diseases of the circulatory system; Z79.1 Long term (current) use of non-steroidal anti-inflammatories (NSAID); E66.9 Obesity, unspecified; Z68.41 Body mass index [BMI] 40.0-44.9, adult
CPT/HCPCS: 96365; 99285; 36415; 93005; 93306; 88108; 88305; 83880; 80053; 80048 ×2; 89050; 83605; 83615 ×2; 84155; 84484; 85025 ×3; 85610; 88342; 88341; 87070; 87205; 87075; 82945; 84157; 71045 ×2; 71046; 76604; 77012; 32555; 71275; G0378 ×3; J2001; J0696 ×2; Q9950; Q9967

== ENCOUNTER 2018-05-27 17:02 | Observation (INO) | payer OTHER ==
[2018-05-27] MEDS ORDERED: FUROSEMIDE 10 MG/ML 4 ML VIAL IV STA (17:16)
[2018-05-27 18:00] LABS: Basophils % (A) 0 %; Eosinophils # (A) 0.1 k/uL (0-0.7); Eosinophils % (A) 1 %; HCT 49.8 % (34.0-46.0); HGB 15.7 gm/dL (11.4-16.0); Lymphocytes % (A) 6 %; MCH 28.4 pg (25.0-35.0); MCHC 31.6 g/dL (31.0-37.0); MCV 90.1 fL (80.0-100.0); Mean Platelet Volume 7.6; Monocytes # (A) 0.6 k/uL (0-1.0); Monocytes % (A) 3 %; Neutrophils # (A) 14.9 k/uL (1.3-7.7); Neutrophils % (A) 89 %; Platelet Count 327 k/uL (150-450); RBC 5.52 m/uL (3.80-5.40); RDW 12.9 % (11.5-15.5); WBC 16.6 k/uL (3.8-10.6)
[2018-05-27 18:10] LABS: INR 0.9 (<1.2); Partial Thromboplastin Time 24.2 sec (22.0-30.0); Prothrombin Time 10.1 sec (9.0-12.0)
[2018-05-27 18:13] LABS: Creatine Kinase <20 U/L (30-135)
[2018-05-27 18:16] LABS: ALT 30 U/L (9-52); AST 22 U/L (14-36); Albumin 4.4 g/dL (3.5-5.0); Alkaline Phosphatase 82 U/L (38-126); Anion Gap 10 mmol/L; Blood Urea Nitrogen 16 mg/dL (7-17); Calcium 9.9 mg/dL (8.4-10.2); Carbon Dioxide 26 mmol/L (22-30); Chloride 105 mmol/L (98-107); Glucose 146 mg/dL (74-99); Magnesium 2.1 mg/dL (1.6-2.3); Potassium 4.8 mmol/L (3.5-5.1); Sodium 141 mmol/L (137-145); Total Bilirubin 0.8 mg/dL (0.2-1.3); Total Protein 7.5 g/dL (6.3-8.2)
[2018-05-27 18:26] LABS: Creatine Kinase MB 0.3 ng/mL (0.0-2.4); Troponin I <0.012 ng/mL (0.000-0.034)
--- NOTE | 2018-05-27 18:33 | ED ---
SOB HPI - General Chief Complaint: Shortness of Breath Stated Complaint: Diff Breathing Time Seen by Provider: 05/27/18 17:15 Source: patient, RN notes reviewed, old records reviewed Mode of arrival: ambulatory Limitations: no limitations - History of Present Illness Initial Comments: This is a 48-year-old female to the ER for evaluation of shortness of breath. Patient states she had exact similar symptoms about a month ago and was found to have significant what of fluid and around her left lung. Patient does not know results of findings of those tests at the time. She did have a lung drained at the time. Patient denies any current pain. No feelings of near syncope or syncope. Is complaining of fullness in her left side shortness of breath MD Complaint: shortness of breath -: days(s), week(s) Severity: moderate Quality: dull Consistency: constant Improves With: rest Worsens With: exertion Known History Of: other (Fluid around her lungs) Context: other (None) Associated Symptoms: pain with inspiration Treatments Prior to Arrival: none - Related Data Home Medications Medication Instructions Recorded Confirmed predniSONE See Taper PO DAILY 05/27/18 05/27/18 Allergies Allergy/AdvReac Type Severity Reaction Status Date / Time No Known Allergies Allergy Verified 05/27/18 17:44 Review of Systems ROS Statement: Those systems with pertinent positive or pertinent negative responses have been documented in the HPI. ROS Other: All systems not noted in ROS Statement are negative. Past Medical History Past Medical History: No Reported History Additional Past Medical History / Comment(s): pleural effusion History of Any Multi-Drug Resistant Organisms: None Reported Past Surgical History: No Surgical Hx Reported Past Anesthesia/Blood Transfusion Reactions: No Reported Reaction Past Psychological History: No Psychological Hx Reported Smoking Status: Never smoker Past Alcohol Use History: None Reported Past Drug Use History: None Reported - Past Family History Mother Additional Family Medical History / Comment(s): 2009 heart valve replaced Father Family Medical History: No Reported History General Exam Limitations: no limitations General appearance: alert, in no apparent distress Head exam: Present: atraumatic, normocephalic, normal inspection Eye exam: Present: normal appearance, PERRL, EOMI. Absent: scleral icterus, conjunctival injection, periorbital swelling ENT exam: Present: normal exam, mucous membranes moist Neck exam: Present: normal inspection. Absent: tenderness, meningismus, lymphadenopathy Respiratory exam: Present: decreased breath sounds (No breath sounds on the left side). Absent: respiratory distress, wheezes, rales, rhonchi, stridor Cardiovascular Exam: Present: regular rate, normal rhythm, normal heart sounds. Absent: systolic murmur, diastolic murmur, rubs, gallop, clicks GI/Abdominal exam: Present: soft, normal bowel sounds. Absent: distended, tenderness, guarding, rebound, rigid Extremities exam: Present: normal inspection, full ROM, normal capillary refill. Absent: tenderness, pedal edema, joint swelling, calf tenderness Back exam: Present: normal inspection Neurological exam: Present: alert, oriented X3, CN II-XII intact Psychiatric exam: Present: normal affect, normal mood Skin exam: Present: warm, dry, intact, normal color. Absent: rash Course Vital Signs 05/27/18 05/27/18 17:07 18:38 Temperature 98.2 F Pulse Rate 86 86 Respiratory 20 18 Rate Blood Pressure 171/72 159/79 O2 Sat by Pulse 96 94 L Oximetry - Reevaluation(s) Reevaluation #1: 05/27/18 20:10 Medical record and prior cytologies evaluated Reevaluation #2: 05/27/18 20:10 Patient is in no significant distress her breathing is on she's not exerting herself Medical Decision Making - Medical Decision Making 48 female the ER for evaluation left-sided hydrothorax, patient will be admitted for pulmonary as well as radiology interventional evaluation - Lab Data Result diagrams: 05/27/18 17:35 05/27/18 17:35 Lab Results 05/27/18 05/27/18 05/27/18 Range/Units 17:35 17:35 17:35 WBC 16.6 H (3.8-10.6) k/uL RBC 5.52 H (3.80-5.40) m/uL Hgb 15.7 (11.4-16.0) gm/dL Hct 49.8 H (34.0-46.0) % MCV 90.1 (80.0-100.0) fL MCH 28.4 (25.0-35.0) pg MCHC 31.6 (31.0-37.0) g/dL RDW 12.9 (11.5-15.5) % Plt Count 327 (150-450) k/uL Neutrophils % 89 % Lymphocytes % 6 % Monocytes % 3 % Eosinophils % 1 % Basophils % 0 % Neutrophils # 14.9 H (1.3-7.7) k/uL Lymphocytes # 1.0 (1.0-4.8) k/uL Monocytes # 0.6 (0-1.0) k/uL Eosinophils # 0.1 (0-0.7) k/uL Basophils # 0.0 (0-0.2) k/uL PT (9.0-12.0) sec INR (<1.2) APTT (22.0-30.0) sec Sodium 141 (137-145) mmol/L Potassium 4.8 (3.5-5.1) mmol/L Chloride 105 (98-107) mmol/L Carbon Dioxide 26 (22-30) mmol/L Anion Gap 10 mmol/L BUN 16 (7-17) mg/dL Creatinine 0.87 (0.52-1.04) mg/dL Est GFR (CKD-EPI)AfAm >90 (>60 ml/min/1.73 sqM) Est GFR (CKD-EPI)NonAf 78 (>60 ml/min/1.73 sqM) Glucose 146 H (74-99) mg/dL Calcium 9.9 (8.4-10.2) mg/dL Magnesium 2.1 (1.6-2.3) mg/dL Total Bilirubin 0.8 (0.2-1.3) mg/dL AST 22 (14-36) U/L ALT 30 (9-52) U/L Alkaline Phosphatase 82 (38-126) U/L Total Creatine Kinase <20 L (30-135) U/L CK-MB (CK-2) 0.3 (0.0-2.4) ng/mL CK-MB (CK-2) Rel Index Troponin I <0.012 (0.000-0.034) ng/mL NT-Pro-B Natriuret Pep pg/mL Total Protein 7.5 (6.3-8.2) g/dL Albumin 4.4 (3.5-5.0) g/dL 05/27/18 05/27/18 Range/Units 17:35 17:35 WBC (3.8-10.6) k/uL RBC (3.80-5.40) m/uL Hgb (11.4-16.0) gm/dL Hct (34.0-46.0) % MCV (80.0-100.0) fL MCH (25.0-35.0) pg MCHC (31.0-37.0) g/dL RDW (11.5-15.5) % Plt Count (150-450) k/uL Neutrophils % % Lymphocytes % % Monocytes % % Eosinophils % % Basophils % % Neutrophils # (1.3-7.7) k/uL Lymphocytes # (1.0-4.8) k/uL Monocytes # (0-1.0) k/uL Eosinophils # (0-0.7) k/uL Basophils # (0-0.2) k/uL PT 10.1 (9.0-12.0) sec INR 0.9 (<1.2) APTT 24.2 (22.0-30.0) sec Sodium (137-145) mmol/L Potassium (3.5-5.1) mmol/L Chloride (98-107) mmol/L Carbon Dioxide (22-30) mmol/L Anion Gap mmol/L BUN (7-17) mg/dL Creatinine (0.52-1.04) mg/dL Est GFR (CKD-EPI)AfAm (>60 ml/min/1.73 sqM) Est GFR (CKD-EPI)NonAf (>60 ml/min/1.73 sqM) Glucose (74-99) mg/dL Calcium (8.4-10.2) mg/dL Magnesium (1.6-2.3) mg/dL Total Bilirubin (0.2-1.3) mg/dL AST (14-36) U/L ALT (9-52) U/L Alkaline Phosphatase (38-126) U/L Total Creatine Kinase (30-135) U/L CK-MB (CK-2) (0.0-2.4) ng/mL CK-MB (CK-2) Rel Index Troponin I (0.000-0.034) ng/mL NT-Pro-B Natriuret Pep 51 pg/mL Total Protein (6.3-8.2) g/dL Albumin (3.5-5.0) g/dL - EKG Data -: EKG Interpreted by Me (EKG shows sinus rhythm rate of 79, OH 108, QRS 82, QTc 412) - Radiology Data Radiology results: report reviewed (CXR is positive for L hydrothorax), image reviewed Disposition Clinical Impression: Hydrothorax Narrative: left hydrothorax Disposition: ADMITTED IP TO THIS HOSP Condition: Fair Is patient prescribed a controlled substance at d/c from ED?: No Referrals: Al Lezama DO [Primary Care Provider] - 1-2 days
--- NOTE | 2018-05-27 18:42 | XR ---
EXAMINATION TYPE: XR chest 2V DATE OF EXAM: 05/27/2018 COMPARISON: 05/12/2018 HISTORY: Difficulty breathing TECHNIQUE: Frontal and lateral views of the chest are obtained. FINDINGS: There is almost complete opacification left hemithorax. Heart is shifted slightly to the r ight side. The right lung is clear. There are chest leads. IMPRESSION: Left-sided hydrothorax with some tension that is not significantly different than last e xam.
[2018-05-27 22:56] VITALS: BMI 43.6
[2018-05-27] MEDS ORDERED: ALPRAZolam 0.25 MG TAB PO PRN (23:27)
[2018-05-27] MEDS ORDERED: ACETAMINOPHEN TAB 500 MG TAB PO PRN (23:27)
[2018-05-27] MEDS ORDERED: HYDROcodone/APAP 5-325MG 1 EACH TAB PO PRN (23:27)
[2018-05-27] MEDS ORDERED: IPRATROPIUM-ALBUTEROL 3 ML NEB INHALATION PRN (23:27)
--- NOTE | 2018-05-27 23:52 | HP ---
HISTORY AND PHYSICAL DATE OF SERVICE: 05/27/2018 CHIEF COMPLAINTS: Shortness of breath and cough. HISTORY OF PRESENT ILLNESS: This 48-year-old woman with a past medical history of significant hydropneumothorax, recently admitted to [facility], had thoracocentesis. The patient improved significantly. The patient was sent home. 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 Currently the patient complaining of increasing shortness of breath and cough and the patient came to [facility] and was admitted for further evaluation and treatment. Chest x-ray showed almost complete whiteout on the left side possibly associated left-sided hydrothorax. There is no history of fever, rigors or chills. No history of headache, loss of consciousness, seizures. PAST MEDICAL HISTORY: History of recent history of recent pleural effusion. MEDICATIONS: Prior to admission: Prednisone. ALLERGIES: None. FAMILY HISTORY: No history of heart disease or strokes in the family. SOCIAL HISTORY: No history of smoking. No history of alcohol intake. REVIEW OF SYSTEMS: ENT: No diminished hearing. No diminished vision. CARDIOVASCULAR: No angina or palpitations. RESPIRATORY: As mentioned earlier. GI: As mentioned earlier. no dysuria. NERVOUS SYSTEM: No numbness or weakness. ALLERGY/IMMUNOLOGY: No asthma or hayfever. MUSCULOSKELETAL: As mentioned earlier. HEMATOLOGY/ONCOLOGY: No history of anemia. ENDOCRINE: No history of diabetes or hypothyroidism. CONSTITUTIONAL: As mentioned earlier. Dermatology: Negative. Rheumatology: Negative. Psychiatry: As mentioned earlier. PHYSICAL EXAMINATION: The patient is alert and oriented times three. Pulse is 86. Blood pressure 159 /79, respiration 18, temp is normal, pulse ox 94% on room air. HEENT: Conjunctivae normal. Oral mucosa is moist. NECK is no jugular venous distention. No carotid bruit. No lymph node enlargement. CARDIOVASCULAR: S1, S2 muffled. RESPIRATORY: Breath sounds diminished in the bases. almost absent on the left side. A few scattered rhonchi. ABDOMEN is soft, nontender. No mass palpable. LEGS: No edema. No swelling. NERVOUS SYSTEM: Higher functions as mentioned earlier. Moves all four extremities. No focal deficits. LYMPHATICS: No lymph nodes palpable in the neck, axilla or groin. SKIN: No ulcer, no rash. No bleeding. LAB STUDIES: WBC 16.2, hemoglobin 16.7. ASSESSMENT: 1. Left-sided pneumothorax recurrent possibly metastatic adenocarcinoma of the lung. 2. Increased WBC. 3. Increased random blood sugars. 4. Hypertension. 5. History of thoracocentesis. RECOMMENDATIONS AND DISCUSSION: Recommend to continue current medications, management and symptomatic treatment. Otherwise, I would recommend Pulmonary and cardiothoracic surgery evaluations and oncology evaluation. Prognosis guarded because of multiple complex medical issues. Further recommendations to follow. Patient also had a pericardial effusion and enlargement. I would also recommend a 2D echo with Doppler as well. MMODL / IJN: [id number] / MTDD
[2018-05-28 07:31] LABS: Basophils % (A) 0 %; Eosinophils # (A) 0.1 k/uL (0-0.7); Eosinophils % (A) 1 %; HCT 49.7 % (34.0-46.0); HGB 15.5 gm/dL (11.4-16.0); Lymphocytes # (A) 2.2 k/uL (1.0-4.8); Lymphocytes % (A) 14 %; MCH 28.2 pg (25.0-35.0); MCHC 31.3 g/dL (31.0-37.0); MCV 90.2 fL (80.0-100.0); Mean Platelet Volume 7.6; Monocytes % (A) 7 %; Neutrophils % (A) 77 %; Platelet Count 339 k/uL (150-450); RBC 5.51 m/uL (3.80-5.40); WBC 15.6 k/uL (3.8-10.6)
[2018-05-28 08:02] LABS: Anion Gap 8 mmol/L; Blood Urea Nitrogen 16 mg/dL (7-17); Calcium 9.7 mg/dL (8.4-10.2); Carbon Dioxide 29 mmol/L (22-30); Chloride 104 mmol/L (98-107); Glucose 83 mg/dL (74-99); Sodium 141 mmol/L (137-145)
--- NOTE | 2018-05-28 09:26 | US ---
EXAMINATION TYPE: US chest DATE OF EXAM: 05/28/2018 COMPARISON: X ray CLINICAL HISTORY: Markings for thoracentesis by pulmonary staff. TECHNIQUE: Targeted ultrasound of the posterior lower EXAM MEASUREMENTS: Right Pleural Effusion pocket size: no fluid seen Left Pleural Effusion pocket size: 8.9 cm A/P Left skin surface to fluid distance: 5.5 cm A/P Left side was marked for possible thoracentesis outside the dept. Pulmonologists are able to review the images in the patient?s EMR. IMPRESSIONS: LEFT-SIDED PLEURAL EFFUSION.
--- NOTE | 2018-05-28 12:13 | P.GSCN ---
Addendum entered and electronically signed by Fredo Paris NP-C 05/28/18 13: 17: We will order a computed tomography scan without contrast of her chest to reevaluate the left hydropneumothorax. Original Note: <Fredo Pairs - Last Filed: 05/28/18 12:06> History of Present Illness Consult date: 05/28/18 Reason for Consult: Recurrent left hydropneumothorax. Requesting physician: Pavel Jenkins History of present illness: This is a 48-year-old female patient who recently started to be followed by Dr. Al Lezama on an outpatient basis. The patient has a past medical history significant for morbid obesity with a BMI of 44.2 kg/m and a left hydropneumothorax in which she was admitted to the hospital on 05/11/2018 and underwent a left CT-guided thoracentesis with 900 mL of serous fluid drained. Since March 2018 the patient has had complaints of shortness of breath and reports that she was only able to walk about 10 feet before having to take a break. She also reports she did not follow with a primary care physician on a regular basis until March 2018. Her primary care physician treated her with prednisone taper and antibiotic therapy in March 2018 with minimal relief according to the patient. Subsequently a chest x-ray was completed and she was admitted to [facility] for a left hydropneumothorax in April 2018. The patient denies any complaints of fever, chills, nausea, vomiting, productive cough, dizziness or syncope. During her hospitalization in April a CTA scan of her chest was completed which demonstrated a left- sided hydropneumothorax with atelectasis of the left lung, no evidence of pulmonary embolism, mild tension left hydrothorax, fluid around her heart that measured 1.5 cm, cardiomegaly and nonspecific enlarged lymph nodes. Subsequently as mentioned above the patient underwent a CT-guided left thoracentesis with 500 mL of serous fluid drained and her pleural fluid cytology showed positive for metastatic adenocarcinoma consistent with primary pulmonary origin. Since her left thoracentesis, she reports that her shortness of breath has improved but recently he shortness of breath has returned. Due to the return of her shortness of breath she followed up with her primary care physician yesterday and underwent a chest x-ray which redemonstrated a left hydropneumothorax. She was admitted to the hospital for further evaluation and treatment, Dr. Hamlin from cardiothoracic surgery was consulted for evaluation and possible surgical recommendations. Review of Systems A 14 point review of systems was completed and was negative except as mentioned in the HPI. Past Medical History Past Medical History: No Reported History Additional Past Medical History / Comment(s): Left hydropneumothorax 05/11/2018. History of Any Multi-Drug Resistant Organisms: None Reported Past Surgical History: No Surgical Hx Reported Past Anesthesia/Blood Transfusion Reactions: No Reported Reaction Past Psychological History: No Psychological Hx Reported Smoking Status: Never smoker Past Alcohol Use History: None Reported Past Drug Use History: None Reported - Past Family History Mother Additional Family Medical History / Comment(s): 2008 heart valve replaced Father Family Medical History: Hypertension Daughter(s) Family Medical History: Asthma Medications and Allergies Home Medications Medication Instructions Recorded Confirmed Type predniSONE See Taper PO DAILY 05/27/18 05/27/18 History Acetaminophen Tab [Tylenol] 500 mg PO Q6HR PRN tab 05/30/18 Rx Albuterol Inhaler [Ventolin Hfa 2 puff INHALATION RT-Q6H #1 inhaler 05/30/18 Rx Inhaler] amLODIPine [Norvasc] 5 mg PO DAILY #30 tab 05/30/18 Rx Allergies Allergy/AdvReac Type Severity Reaction Status Date / Time No Known Allergies Allergy Verified 05/27/18 17:44 Surgical - Exam Vital Signs Temp Pulse Resp BP Pulse Ox 98.2 F 86 20 171/72 96 05/27/18 17:07 05/27/18 17:07 05/27/18 17:07 05/27/18 17:07 05/27/18 17:07 - General Morbidly obese well developed, well nourished, no distress, no pain - Eyes PERRL, normal ocular movement - ENT normal pinna, normal nares, normal mucosa, no hearing loss, no congestion - Neck No lymphadenopathy, neck is supple. no masses, no bruits, trachea midline, no venous distension - Respiratory Essentially clear throughout, diminished to her left lobes. Respirations are symmetrical and nonlabored. Oxygen saturation are 96% on room air. - Cardiovascular Regular rhythm and rate. S1 and S2 present, negative for S3, gallop or murmur. Remote telemetry showing normal sinus rhythm heart rate 83. +1 edema to her bilateral lower extremities. - Abdomen Abdomen is soft, nontender and nondistended. Active bowel sounds all 4 abdominal quadrants. No guarding or rigidity. No organomegaly. - Genitourinary Deferred - Rectum Deferred - Integumentary no rash, no growths, no abnormal pigmentation - Neurologic normal coordination, normal sensation - Musculoskeletal normal gait, normal posture - Psychiatric oriented to time, oriented to person, oriented to place, speech is normal, memory intact Results - Labs 05/28/18 06:37 05/28/18 06:37 Abnormal Lab Results - Last 24 Hours (Table) 05/27/18 05/27/18 05/27/18 Range/Units 17:35 17:35 17:35 WBC 16.6 H (3.8-10.6) k/uL RBC 5.52 H (3.80-5.40) m/uL Hct 49.8 H (34.0-46.0) % Neutrophils # 14.9 H (1.3-7.7) k/uL Glucose 146 H (74-99) mg/dL Total Creatine Kinase <20 L (30-135) U/L 05/28/18 Range/Units 06:37 WBC 15.6 H (3.8-10.6) k/uL RBC 5.51 H (3.80-5.40) m/uL Hct 49.7 H (34.0-46.0) % Neutrophils # 12.0 H (1.3-7.7) k/uL Glucose (74-99) mg/dL Total Creatine Kinase (30-135) U/L Diabetes panel 05/27/18 05/28/18 Range/Units 17:35 06:37 Sodium 141 141 (137-145) mmol/L Potassium 4.8 4.0 (3.5-5.1) mmol/L Chloride 105 104 (98-107) mmol/L Carbon Dioxide 26 29 (22-30) mmol/L BUN 16 16 (7-17) mg/dL Creatinine 0.87 0.86 (0.52-1.04) mg/dL Glucose 146 H 83 (74-99) mg/dL Calcium 9.9 9.7 (8.4-10.2) mg/dL AST 22 (14-36) U/L ALT 30 (9-52) U/L Alkaline Phosphatase 82 (38-126) U/L Total Protein 7.5 (6.3-8.2) g/dL Albumin 4.4 (3.5-5.0) g/dL Calcium panel 05/27/18 05/28/18 Range/Units 17:35 06:37 Calcium 9.9 9.7 (8.4-10.2) mg/dL Albumin 4.4 (3.5-5.0) g/dL Pituitary panel 05/27/18 05/28/18 Range/Units 17:35 06:37 Sodium 141 141 (137-145) mmol/L Potassium 4.8 4.0 (3.5-5.1) mmol/L Chloride 105 104 (98-107) mmol/L Carbon Dioxide 26 29 (22-30) mmol/L BUN 16 16 (7-17) mg/dL Creatinine 0.87 0.86 (0.52-1.04) mg/dL Glucose 146 H 83 (74-99) mg/dL Calcium 9.9 9.7 (8.4-10.2) mg/dL Adrenal panel 05/27/18 05/28/18 Range/Units 17:35 06:37 Sodium 141 141 (137-145) mmol/L Potassium 4.8 4.0 (3.5-5.1) mmol/L Chloride 105 104 (98-107) mmol/L Carbon Dioxide 26 29 (22-30) mmol/L BUN 16 16 (7-17) mg/dL Creatinine 0.87 0.86 (0.52-1.04) mg/dL Glucose 146 H 83 (74-99) mg/dL Calcium 9.9 9.7 (8.4-10.2) mg/dL Total Bilirubin 0.8 (0.2-1.3) mg/dL AST 22 (14-36) U/L ALT 30 (9-52) U/L Alkaline Phosphatase 82 (38-126) U/L Total Protein 7.5 (6.3-8.2) g/dL Albumin 4.4 (3.5-5.0) g/dL - Imaging Chest x-ray: report reviewed, image reviewed EKG: image reviewed Additional studies: Ultrasound of the left chest reviewed. Demonstrates a left pleural effusion pocket size of 8.9 cm. Assessment and Plan (1) Morbid obesity Status: Acute Code(s): E66.01 - MORBID (SEVERE) OBESITY DUE TO EXCESS CALORIES SNOMED Code(s): 231016386 (2) Abnormal cytology Status: Acute Code(s): R89.6 - ABNORMAL CYTOLOGICAL FINDINGS IN SPECIMENS FROM OTH ORG/TISS SNOMED Code(s): 943005609 (3) Hydrothorax Status: Acute Code(s): J94.8 - OTHER SPECIFIED PLEURAL CONDITIONS SNOMED Code(s): 66456027 (4) Dyspnea Status: Acute Code(s): R06.00 - DYSPNEA, UNSPECIFIED SNOMED Code(s): 995879956 Plan: Patient was seen and examined. Her chart diagnostics were reviewed. Her case was discussed with Dr. Hamlin from cardiothoracic surgery. Dr. Hamlin has seen and evaluated the patient. The patient will need a left thoracentesis, if the fluid is to occur the patient may benefit from a Pleurx catheter placement. Oncology consult pending as her cytology of her pleural fluid demonstrated metastatic adenocarcinoma consistent with primary pulmonary. Continue to encourage use of her incentive spirometry every hour while awake. GI and DVT prophylaxis. Medical management recommendations per Dr. Jenkins. Pulmonary recommendations per Dr. Hernandez. Thank you Dr. Jenkins for this consult we look forward to working with you in the care of your patient. Time with Patient: Greater than 30 <Keith Hamlin - Last Filed: 06/03/18 13:07> Surgical - Exam Vital Signs Temp Pulse Resp BP Pulse Ox 98.2 F 86 20 171/72 96 05/27/18 17:07 05/27/18 17:07 05/27/18 17:07 05/27/18 17:07 05/27/18 17:07 Results - Labs 05/31/18 05:46 05/31/18 05:46 Assessment and Plan Plan: The patient was seen and examined. I agree with the above assessment and plan. The patient is a 48-year-old female who has had recurrent left-sided pleural effusions. Her most recent thoracentesis drained 900 mL of fluid and cytology was positive for metastatic carcinoma of lung origin. She presents to the hospital now with shortness of breath. She is awaiting evaluation by both pulmonary and oncology. We will obtain a computed tomography scan of the chest to determine the size of her pleural effusion. I think she would benefit from placement of a Pleurx catheter. Additional recommendations will follow based on the results of the imaging study.
[2018-05-28 12:52] LABS: Appearance,Urine Cloudy (Clear); Bacteria,Urine Occasional /hpf; Bilirubin,Urine Negative (Negative); Blood,Urine Negative (Negative); Calcium Oxalate Crystals,Urine Moderate /hpf; Color,Urine Yellow; Glucose,Urine (UA) Negative (Negative); Ketones,Urine Negative (Negative); Leukocyte Esterase,Urine Trace (Negative); Mucus,Urine Few /hpf; Nitrite,Urine Negative (Negative); PH, Urine 5.5 (5.0-8.0); Protein,Urine 1+ (Negative); RBC,Urine 2 /hpf (0-5); Specific Gravity,Urine 1.025 (1.001-1.035); Squamous Epithelial Cell,Urine 19 /hpf (0-4); Urobilinogen,Urine <2.0 mg/dL (<2.0); WBC,Urine 1 /hpf (0-5)
--- NOTE | 2018-05-28 13:27 | P.CNPUL ---
History of Present Illness Consult date: 05/28/18 Requesting physician: Pavel Jenkins Reason for consult: dyspnea, abnormal CXR/CT (Large recurrent left-sided pleural effusion) Chief complaint: Shortness of breath History of present illness: This is a very pleasant 48-year-old female patient who follows with Dr. Lezama as her primary care physician. He is no significant past medical history. She is a lifelong nonsmoker. We met this patient in April when she presented with increasing shortness of breath and was found to have a significant left-sided hydrothorax and atelectasis of the left lung. She had been seen and evaluated by Dr. Mota. She had undergone a CT-guided thoracentesis approximately 900 mL serous fluid removed. Pathology is positive for metastatic adenocarcinoma consistent with primary pulmonary origin. The patient was to follow-up with us on 06/07/2018 to review the results. She presented here yesterday again with similar symptoms of increasing shortness of breath, dyspnea on minimal exertion, left sided chest discomfort. Repeat x-ray again shows left-sided hydrothorax with some tension. Ultrasound of the left chest shows an effusion measuring 8.9 cm. She is seen today in consultation on the selective care unit. she is awake and alert in no acute distress. Sitting up in a chair at the bedside. She is maintaining good O2 saturations in the upper 90s on room air. She's been afebrile. Hemodynamically stable. White count 15.6. Hemoglobin 15.5. Creatinine 0.86. INR 0.9. Urine is cloudy with occasional bacteria. Culture pending. I did discuss the pathology results of the patient. Review of Systems Constitutional: Reports fatigue Eyes: denies blurred vision, denies decreased vision Ears: deny: decreased hearing Ears, nose, mouth and throat: Denies headache, Denies sore throat Cardiovascular: Reports dyspnea on exertion Respiratory: Reports dyspnea, Reports pain on inspiration Gastrointestinal: Denies abdominal pain, Denies diarrhea, Denies nausea, Denies vomiting Genitourinary: Denies dysuria, Denies hematuria Musculoskeletal: Denies myalgias Integumentary: Denies pruritus, Denies rash Neurological: Denies numbness, Denies weakness Psychiatric: Denies anxiety, Denies depression Endocrine: Denies fatigue, Denies weight change Hematologic/Lymphatic: Reports as per HPI Allergic/Immunologic: Reports as per HPI Past Medical History Past Medical History: No Reported History Additional Past Medical History / Comment(s): Left hydropneumothorax 05/11/2018. History of Any Multi-Drug Resistant Organisms: None Reported Past Surgical History: No Surgical Hx Reported Past Anesthesia/Blood Transfusion Reactions: No Reported Reaction Past Psychological History: No Psychological Hx Reported Smoking Status: Never smoker Past Alcohol Use History: None Reported Past Drug Use History: None Reported - Past Family History Mother Additional Family Medical History / Comment(s): 2009 heart valve replaced Father Family Medical History: Hypertension Daughter(s) Family Medical History: Asthma Medications and Allergies Home Medications Medication Instructions Recorded Confirmed Type predniSONE See Taper PO DAILY 05/27/18 05/27/18 History Allergies Allergy/AdvReac Type Severity Reaction Status Date / Time No Known Allergies Allergy Verified 05/27/18 17:44 Physical Exam Vitals: Vital Signs Temp Pulse Pulse Resp BP BP Pulse Ox 05/28/18 11:55 98.2 F 88 16 144/93 97 05/28/18 08:59 98.2 F 93 18 154/82 96 05/28/18 08:42 97 05/28/18 04:00 97.4 F L 18 189/96 92 L 05/28/18 00:00 97.9 F 19 140/97 92 L 05/27/18 21:40 74 20 143/110 95 05/27/18 18:38 86 18 159/79 94 L 05/27/18 17:07 98.2 F 86 20 171/72 96 Intake and Output 05/27/18 05/28/18 05/28/18 22:59 06:59 14:59 Intake Total 200 120 Balance 200 120 Intake: Oral 200 120 Other: Weight 119 kg 120.4 kg GENERAL EXAM: Alert, pleasant 48-year-old female in no acute distress at rest. Dyspneic on exertion. On room air. Comfortable in no apparent distress. HEAD: Normocephalic. EYES: Normal reaction of pupils, equal size. NOSE: Clear with pink turbinates. THROAT: No erythema or exudates. NECK: No masses, no JVD. CHEST: No chest wall deformity. LUNGS: Equal air entry with crackles in the left lung dullness, diminished CVS: S1 and S2 normal with no audible murmur, regular rhythm. ABDOMEN: No hepatosplenomegaly, normal bowel sounds, no guarding or rigidity. SPINE: No scoliosis or deformity SKIN: No rashes CENTRAL NERVOUS SYSTEM: No focal deficits, tone is normal in all 4 extremities. EXTREMITIES: There is no peripheral edema. No clubbing, no cyanosis. Peripheral pulses are intact. Results - Laboratory Findings CBC and BMP: 05/28/18 06:37 05/28/18 06:37 PT/INR, D-dimer PT 10.1 sec (9.0-12.0) 05/27/18 17:35 INR 0.9 (<1.2) 05/27/18 17:35 Abnormal lab findings: Abnormal Labs 05/27/18 05/27/18 05/27/18 17:35 17:35 17:35 WBC 16.6 H RBC 5.52 H Hct 49.8 H Neutrophils # 14.9 H Glucose 146 H Total Creatine Kinase <20 L Urine Appearance Urine Protein Ur Leukocyte Esterase Ur Squamous Epith Cells Calcium Oxalate Crystal Urine Bacteria Urine Mucus 05/28/18 05/28/18 06:37 12:03 WBC 15.6 H RBC 5.51 H Hct 49.7 H Neutrophils # 12.0 H Glucose Total Creatine Kinase Urine Appearance Cloudy H Urine Protein 1+ H Ur Leukocyte Esterase Trace H Ur Squamous Epith Cells 19 H Calcium Oxalate Crystal Moderate H Urine Bacteria Occasional H Urine Mucus Few H - Diagnostic Findings Chest x-ray: image reviewed Assessment and Plan Assessment: Impression: #1 Dyspnea on exertion secondary to recurrent large left-sided pleural effusion measuring 8.9 cm. #2 Recent left-sided pleural effusion status post thoracentesis. Pathology positive for metastatic adenocarcinoma of pulmonary origin. #3 Lifelong nonsmoker. #4 Leukocytosis, suspect urinary tract infection. Culture pending. Plan: The patient was seen and evaluated by Dr. Hernandez. Chest x-ray ultrasound and labs were reviewed. We will go ahead and perform a therapeutic thoracentesis. Based on the patient's new diagnosis of metastatic lung cancer and recurrent pleural effusions she may need a Pleurx catheter placed. The patient's diagnosis was discussed with her. She will need a PET scan, possible computed tomography scan of the brain and further workup per oncology. We will continue to follow make further recommendations based on her clinical status. I, the cosigning physician, performed a history & physical examination of the patient. Lungs sounds diminished on the left. Maintaining good O2 saturations in the 90s on room air. I discussed the assessment and plan of care with my nurse practitioner, Susan Shahid. I attest to the above note as dictated by her. Time with Patient: Greater than 30
--- NOTE | 2018-05-28 15:49 | XR ---
EXAMINATION TYPE: XR chest 1V portable DATE OF EXAM: 05/28/2018 Comparison: 05/27/2018 Clinical History: 48-year-old female s/p lt thoracentesis Findings: Heart is mildly enlarged. Mild interstitial prominence on the right is unchanged. Dense consolidation left upper lobe persists. Residual small left pleural effusion. There is a new small left apical pne umothorax measuring 1.8 cm from the pleural margin. Impression: 1. Small left apical pneumothorax measuring 1.8 cm following thoracentesis. Findings called to Nurse Shaikh on [facility]SC[facility] at 3:43pm. 2. Residual small left pleural effusion and persistent dense consolidation left upper lobe.
[2018-05-28] MEDS: ENOXAPARIN 40 MG/0.4 ML SYRINGE SQ SCH (16:12)
[2018-05-28] MEDS: PANTOPRAZOLE 40 MG TABLET PO SCH (16:12)
--- NOTE | 2018-05-28 16:43 | CT ---
EXAMINATION TYPE: CT chest wo con DATE OF EXAM: 05/28/2018 COMPARISON: 05/11/2018 HISTORY: 48-year-old female hydropneumothorax TECHNIQUE: Contiguous axial scanning of the chest without IV contrast. Coronal and sagittal reconstru ctions performed. CT DLP: 598.7 mGycm Automated exposure control for dose reduction was used. FINDINGS: Heart normal size. Continued small to moderate pericardial effusion measuring 1.5 cm thick. Aorta normal caliber with conventional arch vessel branching anatomy. Scattered enlarged mediastinal lymph nodes are redemonstrated measuring up to 1.1 cm superior mediast inum, 1.3 cm right paratracheal region, and 1.3 cm precarinal region. 1.3 cm subcarinal region is upp er limits of normal in size. Numerous small 5 mm and smaller right-sided pulmonary nodules are demonstrated. The prior exam had to excessive respiratory motion limiting assessment. There is a large left pleural effusion which persists. Only a small portion of the left lower lobe is aerated but even this portion of the lung shows prominent atelectasis and consolidation. There is cut off of the left upper lobe bronchus with complete opacification of the left upper lobe. Visualized upper abdomen shows no gross abnormality. Bones: No osseous destructive process seen. Anterior endplate spondylosis mid to lower thoracic spine . IMPRESSION: 1. PERSISTENT LARGE LEFT PLEURAL EFFUSION. ONLY A SMALL PORTION OF THE LEFT LOWER LOBE REMAINS AERATE D BUT EVEN THE LEFT LOWER LOBE SHOWS COMBINATION OF ATELECTASIS AND CONSOLIDATION. UNDERLYING PNEUMON IA IS POSSIBLE. 2. THERE IS CUT OFF OF THE LEFT UPPER LOBE BRONCHUS AND OPACIFICATION OF THE LEFT UPPER LOBE. UNDERLY ING NEOPLASM IS NOT EXCLUDED. 3. POSSIBLE METASTATIC MEDIASTINAL LYMPHADENOPATHY MEASURING UP TO 1.3 CM. NUMEROUS RIGHT-SIDED PULMO NARY NODULES ARE ALSO PRESENT MEASURING 5 MM AND SMALLER RAISING POSSIBILITY OF METASTATIC DISEASE. 4. CONTINUED SMALL TO MODERATE PERICARDIAL EFFUSION MEASURING 1.5 CM THICK.
--- NOTE | 2018-05-28 17:54 | PN ---
PROGRESS NOTE DATE OF SERVICE: 05/28/2018 This 48-year-old woman was admitted with significant left pleural effusion, had thoracocentesis mL by Dr. Hernandez. CAT scan of the chest has been ordered and a portable chest x-ray done after the thoracocentesis which was reviewed by me showed significant pneumothorax and as well as significant lesion possibly in the upper lobe with some atelectasis also. PAST MEDICAL HISTORY: Reviewed. REVIEW OF SYSTEMS: CARDIOVASCULAR SYSTEM: No angina. RESPIRATORY SYSTEM: As mentioned earlier. GI: As mentioned earlier. : No dysuria. NERVOUS SYSTEM: ntd MEDICATIONS: Current medications are reviewed and include: 1. Tylenol 500 q.6. 2. [place] 5 mg. 3. DuoNeb q.i.d. and p.r.n. 4. Lovenox 40 mg subcutaneous daily. 5. Protonix. PHYSICAL EXAMINATION: The patient is alert and oriented x3, pulse 93, blood pressure 154/82, respiration 18, temperature 98.2, pulse ox 97% on room air. HEENT: Conjunctivae normal. NECK: No jugular venous distention. CARDIOVASCULAR: S1, S2 muffled. RESPIRATORY: Breath sounds diminished at the bases. A few scattered rhonchi and crackles. Abdomen is soft, nontender. LEGS: No edema, no swelling. NERVOUS SYSTEM: No focal deficits. Breath sounds are diminished on the left side. LABS: WBC 15.6, hemoglobin 15.5. UA noted. ASSESSMENT: 1. Left-sided hydropneumothorax, status post thoracocentesis, possibly metastatic adenocarcinoma of the lung. 2. Increased WBC. 3. Hypertension. 4. Increased random blood sugars. 5. History of thoracocentesis previously. RECOMMENDATIONS AND DISCUSSION: Recommend to continue current medications. Continue with monitoring and symptomatic treatment. Otherwise at this time I recommend continue the current medications. I would initiate Norvasc also to the current regimen. Otherwise, I await fluid pathology. The pigtail catheter is possibility. Hematology Oncology evaluation. The prognosis guarded because of the multiple complex medical issues. Further recommendations to follow. Continue with DVT prophylaxis and proton pump inhibitors. MMODL / IJN: [id number] / MTDD
--- NOTE | 2018-05-28 19:13 | XR ---
EXAMINATION TYPE: XR chest 1V portable DATE OF EXAM: 05/28/2018 COMPARISON: Today 3:00 PM HISTORY: Postthoracentesis TECHNIQUE: Single frontal view of the chest is obtained. FINDINGS: There is an approximate 20% left sided pneumothorax. There is extensive consolidation and atelectasis in the left upper lobe. The right lung is clear. There is no heart failure. IMPRESSION: Left pneumothorax unchanged. Left upper lobe atelectasis and consolidation. Small left p leural effusion unchanged.
[2018-05-28] MEDS: amLODIPine 5 MG TAB PO SCH (20:32)
[2018-05-29 06:42] LABS: Basophils # (A) 0.1 k/uL (0-0.2); Basophils % (A) 1 %; Eosinophils # (A) 0.2 k/uL (0-0.7); Eosinophils % (A) 2 %; HGB 15.1 gm/dL (11.4-16.0); Lymphocytes # (A) 1.3 k/uL (1.0-4.8); Lymphocytes % (A) 10 %; MCH 28.8 pg (25.0-35.0); MCHC 31.4 g/dL (31.0-37.0); MCV 91.6 fL (80.0-100.0); Mean Platelet Volume 7.5; Monocytes % (A) 8 %; Neutrophils # (A) 9.5 k/uL (1.3-7.7); Neutrophils % (A) 78 %; Platelet Count 269 k/uL (150-450); RBC 5.23 m/uL (3.80-5.40); RDW 13.1 % (11.5-15.5); WBC 12.1 k/uL (3.8-10.6)
[2018-05-29] MEDS: PANTOPRAZOLE 40 MG TABLET PO SCH (06:47)
[2018-05-29 06:51] LABS: Calcium 9.3 mg/dL (8.4-10.2); Potassium 4.5 mmol/L (3.5-5.1)
[2018-05-29] MEDS: amLODIPine 5 MG TAB PO SCH (08:37)
[2018-05-29] MEDS: ENOXAPARIN 40 MG/0.4 ML SYRINGE SQ SCH (08:37)
--- NOTE | 2018-05-29 08:43 | CONS ---
CONSULTATION DATE OF SERVICE: May 28, 2018. REASON FOR CONSULTATION: Lung carcinoma. CHIEF COMPLAINT: Short of breath. Usha is a very pleasant 48-year-old lady who is otherwise healthy, who presented to the hospital with worsening dyspnea of about 2 months duration. She was admitted to the hospital last month and she did have a CT scan of the chest on 05/11/2018, which revealed left-sided hydrothorax with atelectasis of the left lung and complete opacification of the left hemithorax. The patient underwent diagnostic and therapeutic thoracentesis on 05/12/2018 with 900 ml of serous fluid removed and the cytology revealed adenocarcinoma with immunohistochemical stains were consistent with lung primary. The patient came back to the hospital with worsening dyspnea and she did have a repeat CT scan of the chest, which revealed persistent large left pleural effusion and also there was evidence of enlarged mediastinal adenopathy measuring up to 1.3 cm and a small pericardial effusion. The patient was readmitted to the hospital for further evaluation. As stated, this exertional dyspnea has been going on for about 2 months, associated with cough, mostly dry. She denies any headache, dysphagia, weight loss. No nausea or vomiting. No change in bowel habits. No melena, hematochezia, hematuria, hemoptysis, hematemesis or epistaxis. PAST MEDICAL HISTORY: Other than what is stated above is otherwise negative. HOME MEDICATION: None. ALLERGIES: None. SOCIAL HISTORY: She is and she is a lifetime nonsmoker. No alcohol abuse or substance abuse. REVIEW OF SYSTEMS: As stated above in the history of present illness, otherwise negative. PHYSICAL EXAMINATION: She is alert, oriented x3. She does not appear to be in acute distress at this time. Her vital signs are temperature 98.1, afebrile, pulse 92 regular, respirations 16, blood pressure 154/72. HEENT: Normocephalic, atraumatic. No obvious scleral icterus. Neck is supple. No jugular venous distention. Chest was chest equal expansion bilaterally. Lungs revealed decreased breath sounds in the left lung all the way up. Heart is regular rate and rhythm. Abdomen is soft. No obvious organomegaly or masses. Bowel sounds present. Extremities revealed no edema. SKIN: No significant bruises or ecchymosis or petechiae. LYMPHATICS: No peripheral cervical supraclavicular nodes. MUSCULOSKELETAL: Moving all extremities appropriately. No percussion tenderness detected over spine or sternum. LABORATORY DATA: WBC of 15.6, hemoglobin 15.5, hematocrit 49.7, platelets 339. Sodium 141, potassium 4.0, chloride 104, CO2 is 29, BUN 16, creatinine 0.87. Her calcium is 9.7. IMPRESSION: 1. Recent diagnosis of adenocarcinoma of the lung, presenting with large pleural effusion in this otherwise young and healthy lady. 2. Malignant pleural effusion with significant amount of dyspnea related to it. RECOMMENDATION: 1. I discussed the recent diagnosis with the patient and her parent at bedside. 2. I would recommend to proceed with PleurX catheter placement for palliative purpose. I expect rapid reaccumulation of her fluid until the patient starts on systemic treatment and that will also require some time to have affect. In the meantime, she would benefit from PleurX catheter placement. 3. In regard to treatment option since she has positive pleural effusion unfortunately that will imply an advanced stage IV disease and treatment would require systemic treatment, which could be either targeted oral therapy if her molecular studies reveal any evidence of targetable mutation such as EGFR, ALK or ROS or BRAF. If those were negative, then the combination of chemotherapy with immunotherapy would be considered. The molecular studies were already sent and we are awaiting the results. In the meantime, as stated above, the patient may benefit from PleurX catheter placement. She could be discharged home and I will see her in the office for additional metastatic workup will be obtained, which will include a CT scan of the abdomen and pelvis and also a brain MRI. The above was discussed in details with the patient and her parent at bedside and answered all their questions to their satisfaction. Thank you very much for asking me participate in the care of this nice lady. MMODL / IJN: [id number] /
--- NOTE | 2018-05-29 10:13 | PCN ---
PROCEDURE NOTE PROCEDURE: Left-sided thoracentesis. PREOPERATIVE DIAGNOSIS: Large left pleural effusion secondary to metastatic adenocarcinoma. POSTOPERATIVE DIAGNOSIS: Large left pleural effusion secondary to metastatic adenocarcinoma. ANESTHESIA: 2 mL of 1% lidocaine. DESCRIPTION OF PROCEDURE: The patient was placed in a sitting upright position, the area was earlier localized by ultrasound, and the area was locally anesthetized with lidocaine. After adequate local lidocaine was given, a small tiny incision was made, and a thoracentesis catheter and needle were used. The needle was inserted at the same site, which is roughly about the 8th intercostal space and tip of the scapula. I advanced the needle until the fluid was obtained, then the catheter was advanced over the needle into the epidural space, and the needle was pulled out of the pleural space. Freely flowing fluid was removed, approximately 300 mL of gilson-looking fluid was removed from the left pleural space. The patient developed significant cough at the end of the procedure. Chest x-ray was ordered. No evidence of any postoperative complications at least at this point. Chest x-ray was ordered to rule out pneumothorax. MMODL / IJN: [id number] /
--- NOTE | 2018-05-29 12:14 | P.PN ---
Subjective Progress Note Date: 05/29/18 Principal diagnosis: Recent diagnosis of adenocarcinoma of the lung, recurrent large left pleural effusion and morbid obesity with a BMI of 44.2 kg/m. POD #1 left thoracentesis with 1.6 L of pleural fluid drained by Dr. Meyer. Patient is sitting up to the bedside chair. She is in no acute distress. She denies any complaints of pain and reports that her shortness of breath is much improved since the thoracentesis yesterday. Her oxygen saturations are 96% on room air. She underwent a computed tomography scan of her chest without contrast yesterday which demonstrated a persistent large left pleural effusion, a cut off of her left upper lobe bronchus and opacification of the left upper lobe with underlying neoplasm could not be excluded. It also demonstrated a small to moderate pericardial effusion measuring 1.5 cm thick and possible metastatic mediastinal lymphadenopathy measuring up to 1.3 cm and numerous right -sided pulmonary nodules. Her cytology results from her hospitalization in April and the computed tomography scan results were discussed with the patient by Dr. Becerra. Objective - Vital Signs Vital signs: Vital Signs Temp 98.2 F 05/29/18 08:40 Pulse 92 05/29/18 08:40 Resp 18 05/29/18 08:40 BP 120/66 05/29/18 08:40 Pulse Ox 96 05/29/18 08:40 Intake & Output 05/28/18 05/29/18 05/29/18 18:59 06:59 18:59 Intake Total 240 200 120 Balance 240 200 120 Weight 119.8 kg Intake: Oral 240 200 120 Other: # Voids 3 - Constitutional General appearance: Present: cooperative, no acute distress, obese - Respiratory Details: Lung sounds are diminished to her left lobes, essentially clear to her right lobes. Respirations are symmetrical and nonlabored. Oxygen saturation are 96% on room air. No wheezing, rhonchi or crackles present. - Cardiovascular Details: Regular rhythm and rate. S1 and S2 present, negative for S3, gallop or murmur. No edema present. Remote telemetry showing normal sinus rhythm heart rate 92. - Gastrointestinal Gastrointestinal Comment(s): Abdomen is soft, nontender and nondistended. Active bowel sounds all 4 abdominal quadrants. Tolerating oral intake. - Genitourinary Genitourinary Comment(s): Voiding clear yellow urine. - Integumentary Integumentary Comment(s): Skin is warm and dry. No clubbing or cyanosis present. No rash, abnormal pigmentation or growth present. Band-Aid in place, clean and dry to her left posterior chest from thoracentesis site - Neurologic Neurologic: Present: CNII-XII intact - Musculoskeletal Musculoskeletal: Present: gait normal, strength equal bilaterally - Psychiatric Psychiatric: Present: A&O x's 3, appropriate affect, intact judgment & insight - Allied health notes Allied health notes reviewed: nursing - Labs CBC & Chem 7: 05/29/18 05:33 05/29/18 05:33 Labs: Abnormal Lab Results - Last 24 Hours (Table) 05/28/18 05/29/18 Range/Units 12:03 05:33 WBC 12.1 H (3.8-10.6) k/uL Hct 48.0 H (34.0-46.0) % Neutrophils # 9.5 H (1.3-7.7) k/uL Urine Appearance Cloudy H (Clear) Urine Protein 1+ H (Negative) Ur Leukocyte Esterase Trace H (Negative) Ur Squamous Epith Cells 19 H (0-4) /hpf Calcium Oxalate Crystal Moderate H (None) /hpf Urine Bacteria Occasional H (None) /hpf Urine Mucus Few H (None) /hpf - Imaging and Cardiology Chest x-ray: report reviewed, image reviewed Assessment and Plan (1) Morbid obesity Current Visit: Yes Status: Acute Code(s): E66.01 - MORBID (SEVERE) OBESITY DUE TO EXCESS CALORIES SNOMED Code(s): 351919889 (2) Abnormal cytology Current Visit: Yes Status: Acute Code(s): R89.6 - ABNORMAL CYTOLOGICAL FINDINGS IN SPECIMENS FROM OTH ORG/TISS SNOMED Code(s): 413646739 (3) Hydrothorax Current Visit: Yes Status: Acute Code(s): J94.8 - OTHER SPECIFIED PLEURAL CONDITIONS SNOMED Code(s): 70164818 (4) Dyspnea Current Visit: No Status: Acute Code(s): R06.00 - DYSPNEA, UNSPECIFIED SNOMED Code(s): 403316430 Plan: 1. Continue GI and DVT prophylaxis. 2. The patient will be evaluated for Pleurx catheter placement. 3. Pulmonary management per Dr. Hernandez's recommendations. 4. Oncology management per Dr. Feliciano recommendations. 5. Incentive spirometry every hour while awake. 6. More recommendations to follow based on patient's clinical course. Time with Patient: Greater than 30
--- NOTE | 2018-05-29 14:12 | XR ---
EXAMINATION TYPE: XR chest 1V portable DATE OF EXAM: 05/29/2018 HISTORY: hydroptx. REFERENCE: Previous study dated 05/28/2018. FINDINGS: There is near complete opacification of the left hemithorax. A curvilinear density persists which may represent a residual pneumothorax which may be slightly larger than on the previous study. Heart size is obscured. The right lung is clear. IMPRESSION: NO SIGNIFICANT INTERVAL CHANGE IN THE APPEARANCE OF THE CHEST.
--- NOTE | 2018-05-29 16:07 | P.PN ---
Subjective Progress Note Date: 05/29/18 Principal diagnosis: Recurrent malignant left pleural effusion This is a very pleasant 48-year-old female patient who follows with Dr. Lezama as her primary care physician. He is no significant past medical history. She is a lifelong nonsmoker. We met this patient in April when she presented with increasing shortness of breath and was found to have a significant left-sided hydrothorax and atelectasis of the left lung. She had been seen and evaluated by Dr. Mota. She had undergone a CT-guided thoracentesis approximately 900 mL serous fluid removed. Pathology is positive for metastatic adenocarcinoma consistent with primary pulmonary origin. The patient was to follow-up with us on 06/07/2018 to review the results. She presented here yesterday again with similar symptoms of increasing shortness of breath, dyspnea on minimal exertion, left sided chest discomfort. Repeat x-ray again shows left-sided hydrothorax with some tension. Ultrasound of the left chest shows an effusion measuring 8.9 cm. She is seen today in consultation on the selective care unit. she is awake and alert in no acute distress. Sitting up in a chair at the bedside. She is maintaining good O2 saturations in the upper 90s on room air. She's been afebrile. Hemodynamically stable. White count 15.6. Hemoglobin 15.5. Creatinine 0.86. INR 0.9. Urine is cloudy with occasional bacteria. Culture pending. I did discuss the pathology results of the patient. Reevaluated today on 05/29/2018, patient tolerated her left sided thoracentesis yesterday quite well, she developed a small left apical pneumothorax, but this is actually not iatrogenic pneumothorax, it is basically a trapped lung. It is basically the same on the chest x-ray today, and there is seems to be some reaccumulation of the fluid in the left pleural space. Patient has been seen by oncology on consultation, and she was also seen by thoracic surgery, and she may require a Pleurx catheter placement tomorrow. Otherwise I have a feeling that the fluid will build up so fast again, and a Pleurx catheter would be ideal in this setting. Clinically the patient is feeling fine, no cough no wheezing no shortness of breath, her labs were noted and reviewed they seem to be relatively unremarkable. Objective - Vital Signs Vital signs: Vital Signs Temp 98.2 F 05/29/18 08:40 Pulse 92 05/29/18 08:40 Resp 18 05/29/18 08:40 BP 120/66 05/29/18 08:40 Pulse Ox 96 05/29/18 08:40 Intake & Output 05/28/18 05/29/18 05/29/18 18:59 06:59 18:59 Intake Total 240 200 320 Balance 240 200 320 Weight 119.8 kg Intake: Oral 240 200 320 Other: # Voids 3 4 - Exam GENERAL EXAM: Revealed a 48-year-old female, pleasant, in no distress. HEAD: Normocephalic. EYES: Normal reaction of pupils, equal size. NOSE: Clear with pink turbinates. THROAT: No erythema or exudates. NECK: No masses, no JVD. CHEST: No chest wall deformity. LUNGS: Equal air entry with crackles in the left lung dullness, diminished CVS: S1 and S2 normal with no audible murmur, regular rhythm. ABDOMEN: No hepatosplenomegaly, normal bowel sounds, no guarding or rigidity. SPINE: No scoliosis or deformity SKIN: No rashes CENTRAL NERVOUS SYSTEM: No focal deficits, tone is normal in all 4 extremities. EXTREMITIES: There is no peripheral edema. No clubbing, no cyanosis. Peripheral pulses are intact. - Labs CBC & Chem 7: 05/29/18 05:33 05/29/18 05:33 Labs: Abnormal Lab Results - Last 24 Hours (Table) 05/29/18 Range/Units 05:33 WBC 12.1 H (3.8-10.6) k/uL Hct 48.0 H (34.0-46.0) % Neutrophils # 9.5 H (1.3-7.7) k/uL Assessment and Plan Assessment: #1 Dyspnea on exertion secondary to recurrent large left-sided pleural effusion measuring 8.9 cm. #2 Recent left-sided pleural effusion status post thoracentesis. Pathology positive for metastatic adenocarcinoma of pulmonary origin. #3 Lifelong nonsmoker. #4 Leukocytosis, suspect urinary tract infection. Culture pending. #5 status post left sided thoracentesis, done at bedside, I was able to remove 1600 mL of fluid with significant clinical improvement. #6 apical pneumothorax, secondary to trapped lung. Plan: Considering the rapid reaccumulation of the fluid in this patient, patient will be seen by thoracic surgery, and most likely she will require a Pleurx catheter placement. In the meantime she is being worked up by oncology she will eventually need a PET scan, scan of the brain, abdominal and pelvic CT , and she will eventually require chemotherapy and radiation therapy. I strongly suspect that we may be dealing with a significant endobronchial lesion involving the left upper lobe , may or may not require bronchoscopy. This could be addressed on an outpatient basis. Time with Patient: Less than 30
--- NOTE | 2018-05-29 16:25 | PN ---
PROGRESS NOTE DATE OF SERVICE: May 29, 2018. CHIEF COMPLAINT: Short of breath. Usha seen today as a follow up. She has some exertional dyspnea, but this has significantly improved since she underwent repeat thoracentesis yesterday. Her cough is also improved. She is ambulating better and no nausea, vomiting. No dysphagia. No fever or chills. No melena, hematochezia or hematuria. MEDICATION: Reviewed in electronic medical record. PHYSICAL EXAM: Alert, oriented x3. No acute distress. Vital signs: Temperature 98.2. Afebrile, pulse 92 regular, respiration 16, blood pressure 120/66. HEENT: Normocephalic, atraumatic. No icterus. NECK: Supple. Chest equal expansion bilaterally. Lungs revealed decreased breath sounds in the left base about one third up. Heart is tachy and regular. ABDOMEN: Soft. No tenderness. Extremities reveal no edema. LABORATORY DATA: WBC of 12.1, hemoglobin 15.1, hematocrit 48.0, platelet 267. Sodium 135, potassium 4.5, chloride 102, CO2 30, BUN 16, creatinine 0.88. IMPRESSION: Recent diagnosis of adenocarcinoma of the lung, presenting with recurrent large left pleural effusion in this otherwise healthy lady. The patient exertional dyspnea has significantly improved after repeat thoracentesis yesterday. RECOMMENDATION: 1. The patient may benefit from PleurX catheter placement for planning purpose. 2. The patient will require systemic treatment in the outpatient setting. We are awaiting the results of molecular studies and bio markers in order to determine whether the patient will be a candidate for oral targeted therapy versus combination of chemotherapy and immunotherapy. While awaiting for that, additional staging workup in the outpatient setting with a PET scan and brain MRI will be obtained as well. 3. Once PleurX catheter placed, the patient could be discharged home and she will follow up with us in the outpatient setting. MMODL / IJN: [id number] /
[2018-05-30 06:47] LABS: Basophils % (A) 0 %; Eosinophils # (A) 0.5 k/uL (0-0.7); Eosinophils % (A) 4 %; HGB 14.2 gm/dL (11.4-16.0); Lymphocytes # (A) 1.3 k/uL (1.0-4.8); Lymphocytes % (A) 12 %; MCH 27.9 pg (25.0-35.0); MCV 90.1 fL (80.0-100.0); Mean Platelet Volume 7.5; Monocytes # (A) 0.8 k/uL (0-1.0); Monocytes % (A) 7 %; Neutrophils # (A) 8.3 k/uL (1.3-7.7); Neutrophils % (A) 76 %; Platelet Count 256 k/uL (150-450); RBC 5.11 m/uL (3.80-5.40); RDW 12.9 % (11.5-15.5); WBC 10.9 k/uL (3.8-10.6)
[2018-05-30 06:59] LABS: Potassium 4.1 mmol/L (3.5-5.1)
[2018-05-30] MEDS: amLODIPine 5 MG TAB PO SCH (08:55)
[2018-05-30] MEDS: PANTOPRAZOLE 40 MG TABLET PO SCH (08:55)
[2018-05-30] MEDS: ENOXAPARIN 40 MG/0.4 ML SYRINGE SQ SCH (08:55)
--- NOTE | 2018-05-30 09:41 | PN ---
PROGRESS NOTE DATE OF SERVICE: 05/29/2018 This 48-year-old woman was admitted with significant left pleural effusion. The patient also had metastatic adenocarcinoma. Dr. Becerra is following the patient closely, recommended outpatient followup and several markers have been requested. No chest pain. No palpitations. No fever. PHYSICAL EXAM: Alert and oriented x3, pulse 94, blood pressure 130/70, respiration 16, temperature 98.2, pulse ox 97% on room air. NECK: No jugular venous distention. CARDIOVASCULAR: S1, S2 muffled. RESPIRATORY: Breath sounds diminished at the bases. Bilateral scattered rhonchi and crackles. Breath sounds are markedly diminished on the left side. Abdomen is soft, nontender. NERVOUS SYSTEM: No focal deficits. LABS: At this time WBC 12.1, hemoglobin 15.1 UA noted. ASSESSMENT: 1. Left-sided recurrent hydropneumothorax, status post thoracocentesis, possibly metastatic adenocarcinoma of the lung. 2. Increased WBC. 3. Hypertension. 4. Increased random blood sugars. 5. History of thoracocentesis. RECOMMENDATION: Recommend to continue current management and symptomatic treatment. Otherwise, pleural drainage per cardiothoracic surgery. Otherwise, continue current medications and chemotherapy as an outpatient by Dr. Becerra after receiving all the tumor markers and markers. Guarded prognosis. Further recommendations to follow. MMODL / IJN: [id number] / [id number]
--- NOTE | 2018-05-30 12:19 | P.PN ---
Subjective Progress Note Date: 05/30/18 Principal diagnosis: EGFR mutated metastatic lung adenocarcinoma Pt seen in f/u, her parents were at bedside. She has dry, harsh cough, no hemoptysis, denies fever, appetite is decent, no pain. Objective - Vital Signs Vital signs: Vital Signs Temp 98.4 F 05/30/18 07:50 Pulse 83 05/30/18 07:50 Resp 20 05/30/18 07:50 BP 136/90 05/30/18 07:50 Pulse Ox 97 05/30/18 07:50 Intake & Output 05/29/18 05/30/18 05/30/18 18:59 06:59 18:59 Intake Total 320 240 240 Balance 320 240 240 Weight 119.6 kg Intake: Oral 320 240 240 Other: Voiding Method Toilet # Voids 4 1 - Constitutional General appearance: Present: cooperative, no acute distress, obese - EENT Eyes: Present: EOMI ENT: Present: hearing grossly normal - Respiratory Details: respirations unlabored - Cardiovascular Heart sounds: normal: S1, S2 Abnormal Heart Sounds: Absent: systolic murmur, diastolic murmur, rub, S3 Gallop , S4 Gallop, click, other - Peripheral edema leg Peripheral Edema: bilateral: None - Gastrointestinal General gastrointestinal: Present: normal bowel sounds, soft - Integumentary Integumentary: Present: normal - Neurologic Neurologic: Present: CNII-XII intact - Musculoskeletal Musculoskeletal: Present: strength equal bilaterally - Psychiatric Psychiatric: Present: A&O x's 3, appropriate affect, intact judgment & insight - Labs CBC & Chem 7: 05/30/18 05:52 05/30/18 05:52 Labs: Abnormal Lab Results - Last 24 Hours (Table) 05/30/18 Range/Units 05:52 WBC 10.9 H (3.8-10.6) k/uL Neutrophils # 8.3 H (1.3-7.7) k/uL Assessment and Plan (1) EGFR-related lung cancer Narrative/Plan: Patient biomarker report did come back positive for an EGFR mutation. Patient is a candidate for EGFR targeted therapy with osimertinib oral treatment. Patient's diagnosis was reviewed with her and her parents. The positive biomarker status was reviewed and the targeted treatment option. Patient does have stage IV disease, the intent of treatment is palliation of symptoms and prolongation of life. With the newer targeted agents prognosis can certainly be extended, sometimes 1-2 years or more based on response to therapy. Pt is interested in trying therapy. This specialty pharmacy medication will be ordered through our office. Will plan f/u appt with pt in the next 5-[address] Haines requested that I discuss with the patient the option of the Pleurx drain versus as needed thoracentesis. It is anticipated with targeted therapy the patient's pleural effusions should be significantly reduced within a shorter time frame then would be anticipated with traditional chemotherapy. Patient is going to opt for as needed thoracentesis for now. Staging imaging ordered. CTAP, nuclear medicine bone scan and MRI of the brain. Pt aware and in agreement. Current Visit: Yes Status: Acute Priority: High Code(s): C34.90 - MALIGNANT NEOPLASM OF UNSP PART OF UNSP BRONCHUS OR LUNG SNOMED Code(s): 731702492 Time with Patient: Greater than 30 (greater than 35 minutes spent, greater than 50% counseling and coordinating care)
[2018-05-30] MEDS: IOPAMIDOL-300 CONTRAST 30 ML VIAL (ORAL USE) PO PRN ×2 (12:32→13:43)
--- NOTE | 2018-05-30 12:38 | P.PN ---
Subjective Progress Note Date: 05/30/18 Principal diagnosis: Recent diagnosis of adenocarcinoma of the lung, recurrent large left pleural effusion, lifetime nonsmoker and morbid obesity with a BMI of 44.2 kg/m. POD #2 left thoracentesis with 1.6 L of pleural fluid drained by Dr. Meyer. Patient is sitting up to the bedside chair. She is in no acute distress. She denies any complaints of pain and reports that her shortness of breath is much improved since the thoracentesis on 05/29/2018. Her oxygen saturations are 97% on room air. The patient reports she may begin discharged home this morning. Objective - Vital Signs Vital signs: Vital Signs Temp 98.4 F 05/30/18 07:50 Pulse 83 05/30/18 07:50 Resp 20 05/30/18 07:50 BP 136/90 05/30/18 07:50 Pulse Ox 97 05/30/18 07:50 Intake & Output 05/29/18 05/30/18 05/30/18 18:59 06:59 18:59 Intake Total 320 240 240 Balance 320 240 240 Weight 119.6 kg Intake: Oral 320 240 240 Other: Voiding Method Toilet # Voids 4 1 - Constitutional General appearance: Present: cooperative, no acute distress, obese - Respiratory Details: Lung sounds are essentially clear to her right lobes, diminished to her left lobes. Respirations are symmetrical and nonlabored. Oxygen saturation are 97% on room air. - Cardiovascular Details: Regular rhythm and rate. S1 and S2 present, negative for S3, gallop or murmur. No edema present. - Gastrointestinal Gastrointestinal Comment(s): Abdomen soft, nontender and nondistended. Active bowel sounds to all 4 abdominal quadrants. Tolerate oral intake. Passing flatus. No guarding or rigidity. No organomegaly. - Genitourinary Genitourinary Comment(s): Voiding clear yellow urine. - Integumentary Integumentary Comment(s): Skin is warm and dry. No clubbing or cyanosis present. No rash or abnormal pigmentation present. - Neurologic Neurologic: Present: CNII-XII intact - Musculoskeletal Musculoskeletal: Present: gait normal, strength equal bilaterally - Psychiatric Psychiatric: Present: A&O x's 3, appropriate affect, intact judgment & insight - Allied health notes Allied health notes reviewed: nursing - Labs CBC & Chem 7: 05/30/18 05:52 05/30/18 05:52 Labs: Abnormal Lab Results - Last 24 Hours (Table) 05/30/18 Range/Units 05:52 WBC 10.9 H (3.8-10.6) k/uL Neutrophils # 8.3 H (1.3-7.7) k/uL Assessment and Plan (1) Morbid obesity Current Visit: Yes Status: Acute Code(s): E66.01 - MORBID (SEVERE) OBESITY DUE TO EXCESS CALORIES SNOMED Code(s): 239288543 (2) Abnormal cytology Current Visit: Yes Status: Acute Code(s): R89.6 - ABNORMAL CYTOLOGICAL FINDINGS IN SPECIMENS FROM OTH ORG/TISS SNOMED Code(s): 217086061 (3) Hydrothorax Current Visit: Yes Status: Acute Code(s): J94.8 - OTHER SPECIFIED PLEURAL CONDITIONS SNOMED Code(s): 52731432 (4) Dyspnea Current Visit: No Status: Acute Code(s): R06.00 - DYSPNEA, UNSPECIFIED SNOMED Code(s): 331438512 Plan: 1. Continue GI and DVT prophylaxis. 2. Per the cardiothoracic surgery standpoint the patient can be discharged home when okay with primary care service, pulmonary care service and oncology. She could have a chest x-ray completed this Wednesday on an outpatient basis and be scheduled for a Pleurx catheter placement on an outpatient basis. The patient reports that since her thoracentesis procedure on Wednesday her shortness of breath symptoms are much improved. 3. Pulmonary management per Dr. Hernandez's recommendations. 4. Oncology management per Dr. Feliciano recommendations. 5. Incentive spirometry every hour while awake. 6. More recommendations to follow based on patient's clinical course. Time with Patient: Greater than 30
--- NOTE | 2018-05-30 15:48 | P.PN ---
Subjective Progress Note Date: 05/30/18 Principal diagnosis: Recurrent malignant left pleural effusion This is a very pleasant 48-year-old female patient who follows with Dr. Lezama as her primary care physician. He is no significant past medical history. She is a lifelong nonsmoker. We met this patient in April when she presented with increasing shortness of breath and was found to have a significant left-sided hydrothorax and atelectasis of the left lung. She had been seen and evaluated by Dr. Mota. She had undergone a CT-guided thoracentesis approximately 900 mL serous fluid removed. Pathology is positive for metastatic adenocarcinoma consistent with primary pulmonary origin. The patient was to follow-up with us on 06/07/2018 to review the results. She presented here yesterday again with similar symptoms of increasing shortness of breath, dyspnea on minimal exertion, left sided chest discomfort. Repeat x-ray again shows left-sided hydrothorax with some tension. Ultrasound of the left chest shows an effusion measuring 8.9 cm. She is seen today in consultation on the selective care unit. she is awake and alert in no acute distress. Sitting up in a chair at the bedside. She is maintaining good O2 saturations in the upper 90s on room air. She's been afebrile. Hemodynamically stable. White count 15.6. Hemoglobin 15.5. Creatinine 0.86. INR 0.9. Urine is cloudy with occasional bacteria. Culture pending. I did discuss the pathology results of the patient. Reevaluated today on 05/29/2018, patient tolerated her left sided thoracentesis yesterday quite well, she developed a small left apical pneumothorax, but this is actually not iatrogenic pneumothorax, it is basically a trapped lung. It is basically the same on the chest x-ray today, and there is seems to be some reaccumulation of the fluid in the left pleural space. Patient has been seen by oncology on consultation, and she was also seen by thoracic surgery, and she may require a Pleurx catheter placement tomorrow. Otherwise I have a feeling that the fluid will build up so fast again, and a Pleurx catheter would be ideal in this setting. Clinically the patient is feeling fine, no cough no wheezing no shortness of breath, her labs were noted and reviewed they seem to be relatively unremarkable. On 05/30/2018 patient seen in follow-up on selective care unit. She is awake and alert, in no acute distress, denies any dyspnea, she sits up in the chair, room air pulse ox is 96%, patient is status post left-sided thoracentesis, with drainage of 300 mL of gilson-looking pleural fluid. Patient is breathing easier , lung sounds are diminished over left lower base, clear on the right. Patient is going for MRI of the brain today, bone scan and CT of the abdomen and pelvis with contrast. She was seen by then, oncology, on to be EGFR marker positive. CT surgery is following, patient decided not to proceed with Pleurx placement at this time. Objective - Vital Signs Vital signs: Vital Signs Temp 97.8 F 05/30/18 12:00 Pulse 88 05/30/18 12:00 Resp 20 05/30/18 12:00 BP 145/89 05/30/18 12:00 Pulse Ox 96 05/30/18 12:00 Intake & Output 05/29/18 05/30/18 05/30/18 18:59 06:59 18:59 Intake Total 320 240 240 Balance 320 240 240 Weight 119.6 kg Intake: Oral 320 240 240 Other: Voiding Method Toilet # Voids 4 1 1 - Exam GENERAL EXAM: Revealed a 48-year-old female, pleasant, in no distress. HEAD: Normocephalic. EYES: Normal reaction of pupils, equal size. NOSE: Clear with pink turbinates. THROAT: No erythema or exudates. NECK: No masses, no JVD. CHEST: No chest wall deformity. LUNGS: Equal air entry with diminished breath sounds in the left lower base, clear on the right CVS: S1 and S2 normal with no audible murmur, regular rhythm. ABDOMEN: No hepatosplenomegaly, normal bowel sounds, no guarding or rigidity. SPINE: No scoliosis or deformity SKIN: No rashes CENTRAL NERVOUS SYSTEM: No focal deficits, tone is normal in all 4 extremities. EXTREMITIES: There is no peripheral edema. No clubbing, no cyanosis. Peripheral pulses are intact. - Labs CBC & Chem 7: 05/30/18 05:52 05/30/18 05:52 Labs: Abnormal Lab Results - Last 24 Hours (Table) 05/30/18 Range/Units 05:52 WBC 10.9 H (3.8-10.6) k/uL Neutrophils # 8.3 H (1.3-7.7) k/uL Assessment and Plan Plan: #1 Dyspnea on exertion secondary to recurrent large left-sided pleural effusion measuring 8.9 cm. #2 Recent left-sided pleural effusion status post thoracentesis. Pathology positive for metastatic adenocarcinoma of pulmonary origin. #3 Lifelong nonsmoker. #4 Leukocytosis, suspect urinary tract infection. Culture pending. #5 status post left sided thoracentesis, done at bedside, I was able to remove 1600 mL of fluid with significant clinical improvement. #6 apical pneumothorax, secondary to trapped lung. Plan: Patient wants to wait with placement of a Pleurx catheter at this time, she is anticipated to start chemotherapy, she was seen by medical oncology. At this time she is fairly comfortable, breathing easier, no worsening dyspnea, she is on room air. Will await the results of the staging workup. I performed a history & physical examination of the patient and discussed their management with my nurse practitioner, Elena Solares. I reviewed the nurse practitioner's note and agree with the documented findings and plan of care. Lung sounds are positive for diminished breath sounds over left lower base. The findings and the impression was discussed with the patient. I attest to the documentation by the nurse practitioner. Time with Patient: Less than 30
--- NOTE | 2018-05-30 16:03 | CT ---
EXAMINATION TYPE: CT abdomen pelvis w con DATE OF EXAM: 05/30/2018 COMPARISON: Prior chest x-ray dated 05/28/[address] 05/28/2017 HISTORY: Lung cancer, staging lung adenocarcinoma CT DLP: 1817.9 mGycm Automated exposure control for dose reduction was used. TECHNIQUE: Helical acquisition of images from the lung bases through the pelvis have been completed. CONTRAST: Performed with Oral Contrast and with IV Contrast, patient injected with 100 mL of Isovue 300. FINDINGS: LUNG BASES: There is a left pleural effusion, residual left pneumothorax is identified possibly relat ed to trapped lung, there is associated atelectasis. There is some pericardial fluid noted as on prio r CT. AORTA: No significant abnormality is appreciated. LIVER/GB: No significant abnormality is appreciated. PANCREAS: No significant abnormality is seen. SPLEEN: No significant abnormality is seen. ADRENALS: No significant abnormality is seen. KIDNEYS: No significant abnormality is seen. REPRODUCTIVE ORGANS: 2.8 cm cystic focus associated with the left ovary. BOWEL: Descending colon shows some questionable wall thickening which is indeterminate. FREE AIR: No Free Air visible. ASCITES: None visible. PELVIC ADENOPATHY: None visualized. RETROPERITONEAL ADENOPATHY: No Retroperitoneal Adenopathy visible. URINARY BLADDER: No significant abnormality is seen. OSSEOUS STRUCTURES: No significant abnormality is seen. IMPRESSION: SUSPECT TRAPPED LUNG IN THE LEFT HEMITHORAX, PERSISTENT PNEUMOTHORAX AND PLEURAL EFFUSION, PERICARDIA L EFFUSION. Indeterminate colonic wall thickening, correlate to exclude colitis, probable ovarian cys ts follow-up.
--- NOTE | 2018-05-30 16:46 | NM ---
EXAMINATION TYPE: NM bone scan whole body DATE OF EXAM: 05/30/2018 COMPARISON: CT abdomen pelvis of the same date. CT chest dated 05/28/2018. HISTORY: Lung cancer. Staging. Delayed whole-body scanning was performed following the injection of 24 mCi Tc 99m MDP. Images acqui red 3 hours post injection. FINDINGS: There is focal radiotracer uptake of the right seventh lateral rib and to a much lesser degree the la teral margin of rib 3 on the right. When correlated with the CT of the same date there is a very subt le linear defect of the cortical surface of the right seventh rib on image 6. Therefore this may repr esent an acute to subacute nondisplaced fracture. Symmetric degenerative uptake is seen of the acromi o clavicular joints, glenohumeral joints, sternal clavicular joints, sacroiliac joints, mid thoracic spine, and femoral acetabular joints as well as to a lesser degree of the knees. Physiologic excretio n is seen of the renal collecting systems and urinary bladder. IMPRESSION: 1. Focal uptake within the right seventh lateral rib is suspected to relate to an acute or subacute h ealing fracture. Correlate with any recent trauma or fall. 2. Subtle uptake within the lateral ribs 3 margin and also may relate to recent injury. 3. No additional findings to suggest. 4. Degenerative changes of the axial and appendicular skeleton.
--- NOTE | 2018-05-30 21:47 | PN ---
PROGRESS NOTE DATE OF SERVICE: 05/30/2018 This 48-year-old woman who was admitted with significant pleural effusion on the right side is also scheduled to have multiple evaluations, including MRI scan. The patient is closely monitored. Cardiothoracic Surgery is recommending outpatient evaluation for possible PleurX drainage at this time. PHYSICAL EXAMINATION: Alert and oriented x3. The pulse is 98, blood pressure 144/70, respiration 20, temperature 98.4, pulse ox 94% on room air. HEENT: Conjunctivae normal. NECK: No jugular venous distention. CARDIOVASCULAR SYSTEM: S1, S2 muffled. RESPIRATORY SYSTEM: Breath sounds diminished at the bases. A few scattered rhonchi and crackles. ABDOMEN: Soft, non-tender. LEGS: No edema. No swelling. NERVOUS SYSTEM: No focal deficit. LABS: Labs at this time show WBC 10.9. Other labs are noted. ASSESSMENT: 1. Left-sided recurrent hydropneumothorax, status post thoracocentesis, possibly metastatic adenocarcinoma of the lung. 2. Increased white count. 3. Hypertension. 4. Increased random blood sugar. 5. History of thoracocentesis. RECOMMENDATIONS AND DISCUSSION: I recommend to continue current medication, continue symptomatic treatment. Await MRI scan. Await further epithelial markers as an outpatient. Guarded prognosis. Further recommendations to follow. MMODL / IJN: [id number] /
[2018-05-31 06:30] LABS: Basophils % (A) 0 %; Eosinophils # (A) 0.7 k/uL (0-0.7); Eosinophils % (A) 5 %; HGB 15.6 gm/dL (11.4-16.0); Lymphocytes # (A) 1.4 k/uL (1.0-4.8); Lymphocytes % (A) 10 %; MCH 29.4 pg (25.0-35.0); MCHC 32.5 g/dL (31.0-37.0); MCV 90.4 fL (80.0-100.0); Mean Platelet Volume 7.9; Monocytes # (A) 0.8 k/uL (0-1.0); Monocytes % (A) 5 %; Neutrophils # (A) 11.8 k/uL (1.3-7.7); Neutrophils % (A) 80 %; Platelet Count 311 k/uL (150-450); RBC 5.31 m/uL (3.80-5.40); RDW 13.2 % (11.5-15.5); WBC 14.9 k/uL (3.8-10.6)
[2018-05-31] MEDS: PANTOPRAZOLE 40 MG TABLET PO SCH (06:36)
[2018-05-31 06:38] LABS: Calcium 9.5 mg/dL (8.4-10.2); Potassium 4.3 mmol/L (3.5-5.1)
[2018-05-31] MEDS: ENOXAPARIN 40 MG/0.4 ML SYRINGE SQ SCH (07:31)
[2018-05-31] MEDS: amLODIPine 5 MG TAB PO SCH (07:31)
[2018-05-31 07:35] VITALS: RESP 20
[2018-05-31] MEDS ORDERED: LORazepam 2 MG/ML INJ IV PRN (08:10)
--- NOTE | 2018-05-31 10:28 | MR ---
EXAMINATION TYPE: MR brain wo/w con DATE OF EXAM: 05/31/2018 COMPARISON: None HISTORY: staging lung adenocarcinoma TECHNIQUE: Multiplanar, multisequence images of the brain and brainstem is performed without and with IV contras t, utilizing 12 mL intravenous Gadavist . FINDINGS: Diffusion weighted images demonstrate no evidence of a recent infarct or other diffusion ab normality. There is no extra-axial fluid collection. Inversion recovery T2-weighted sequences show some cortical hyperintensity on axial image 22 in the right parietal lobe measuring 5 mm. Additional periventricular focus measuring 3 mm seen on axial image 15. The ventricular system and cisternal spa tea are normal in size and appearance. The brain volume is age appropriate. Midline structures demonstrate normal morphology. The craniocervical junction appears within normal limits. The dural venous sinuses appear patent. The visualized sinuses are remarkable for minimal mu cosal disease in the maxillary sinuses, ethmoid air cells and the globes are intact. Within the scalp there are multiple foci of abnormal signal in the subcutaneous fat. The largest at the posterior lef t base of skull level measures approximately 2.5 cm and shows T2 and inversion recovery hyperintensit y, T1 intermediate to high signal some slight heterogeneity noted, minimal peripheral enhancement. Fo ci are well-circumscribed and show no central enhancement. 11 mm focus at the convexity to the left o f midline measures 11 mm and shows T1 hypointensity and some peripheral enhancement following contras t administration. Additional focus in the posterior scalp in close proximity to the largest lesion to the left of midline measures 11 mm and shows T1 hypointensity and Dr. signal on T2 and inversion rec overy sequences. IMPRESSION: Nonspecific foci of demyelination of questionable clinical significance could be related to hypertension, vasculitis, migraine headaches, multiple sclerosis felt to be less likely. Scalp les ions are likely to represent epidermal inclusion cysts.
[2018-05-31 12:15] VITALS: BP 123/84; PULSE 95; TEMP 98.7
--- NOTE | 2018-05-31 13:53 | P.DS ---
Providers Date of admission: 05/27/18 20:10 Attending physician: Pavel Jenkins Consults: 05/27/18 20:07 Consult Physician Routine Consulting Provider: Louis Hernandez Consult Reason/Comments: hydrothorax Do you want consulting provider notified?: Yes 05/27/18 23:08 Consult Physician Routine Consulting Provider: Keith Hamlin Consult Reason/Comments: recurrant hydropneumothorax Do you want consulting provider notified?: Yes 05/27/18 23:16 Consult Physician Routine Consulting Provider: Flo Driver Consult Reason/Comments: recurrant hydropneumothorax abnormal cytology Do you want consulting provider notified?: Yes 05/28/18 17:54 Consult Physician Routine Consulting Provider: Ezio Vines Consult Reason/Comments: maignant pleural effusion Do you want consulting provider notified?: Yes, Notify in am Primary care physician: [facility] Course: 48-year-old female with known history of lung cancer came in with left-sided hydrothorax underwent thoracocentesis. Patient underwent head CT did not show any metastatic lesions patient is clinically stable is being discharged today. Patient will follow with oncology as an outpatient. Patient has metastatic adenocarcinoma primary being lung cancer. PHYSICAL EXAMINATION: GENERAL: The patient is alert and oriented x3, not in any acute distress. Well developed, well nourished. HEENT: Pupils are round and equally reacting to light. EOMI. No scleral icterus. No conjunctival pallor. Normocephalic, atraumatic. No pharyngeal erythema. No thyromegaly. CARDIOVASCULAR: S1 and S2 present. No murmurs, rubs, or gallops. PULMONARY: Chest is clear to auscultation, no wheezing or crackles. ABDOMEN: Soft, nontender, nondistended, normoactive bowel sounds. No palpable organomegaly. MUSCULOSKELETAL: No joint swelling or deformity. EXTREMITIES: No cyanosis, clubbing, or pedal edema. NEUROLOGICAL: Gross neurological examination did not reveal any focal deficits. SKIN: No rashes. Please refer to progress note from Dr. Jenkins for further details of hospitalization course and the other chronic medical problems. Patient Condition at Discharge: Fair Plan - Discharge Summary Discharge Rx Participant: No New Discharge Prescriptions: New Acetaminophen Tab [Tylenol] 500 mg PO Q6HR PRN tab PRN Reason: Fever And/ Or Pain Albuterol Inhaler [Ventolin Hfa Inhaler] 2 puff INHALATION RT-Q6H #1 inhaler amLODIPine [Norvasc] 5 mg PO DAILY #30 tab Continue predniSONE See Taper PO DAILY Discharge Medication List predniSONE See Taper PO DAILY 05/27/18 [History] Acetaminophen Tab [Tylenol] 500 mg PO Q6HR PRN tab 05/30/18 [Rx] Albuterol Inhaler [Ventolin Hfa Inhaler] 2 puff INHALATION RT-Q6H #1 inhaler 12/09 [Rx] amLODIPine [Norvasc] 5 mg PO DAILY #30 tab 05/30/18 [Rx] Follow up Appointment(s)/Referral(s): Ezio Vines MD [STAFF PHYSICIAN] - 06/06/18 2:45 pm (Wednesday) Keith Hamlin MD [STAFF PHYSICIAN] - 06/10/18 10:00 am (Wednesday) Al Lezama DO [Primary Care Provider] - 06/06/18 1:00 pm (Wednesday with PROCESS ARTIST at [facility] ) Ambulatory/Diagnostic Orders: XR chest 2V [RAD.AMB] Time Frame: 06/03/18, Facility: [facility], Location: [facility] Patient Instructions/Handouts: Thoracentesis (DC) Discharge Disposition: HOME SELF-CARE
--- NOTE | 2018-05-31 17:59 | P.PN ---
Subjective Progress Note Date: 05/31/18 Principal diagnosis: EGFR mutated metastatic lung adenocarcinoma Patient seen in follow-up. She has completed staging workup. She is ready to go home. She still has the dry cough, no hemoptysis, fevers or pain Objective - Vital Signs Vital signs: Vital Signs Temp 98.7 F 05/31/18 12:00 Pulse 95 05/31/18 12:00 Resp 20 05/31/18 12:00 BP 123/84 05/31/18 12:00 Pulse Ox 97 05/31/18 12:00 Intake & Output 05/30/18 05/31/18 05/31/18 18:59 06:59 18:59 Intake Total 240 900 Balance 240 900 Weight 119.7 kg Intake: Oral 240 900 Other: Voiding Method Toilet # Voids 1 2 2 - Constitutional General appearance: Present: average body habitus, cooperative, no acute distress - EENT Eyes: Present: EOMI ENT: Present: hearing grossly normal - Respiratory Respiratory: right: CTA, left: diminished, wheezing - Cardiovascular Rhythm: regular Heart sounds: normal: S1, S2 - Peripheral edema leg Peripheral Edema: bilateral: Trace - Gastrointestinal General gastrointestinal: Present: normal bowel sounds, soft - Integumentary Integumentary: Present: normal - Neurologic Neurologic: Present: CNII-XII intact - Musculoskeletal Musculoskeletal: Present: strength equal bilaterally - Psychiatric Psychiatric: Present: A&O x's 3, appropriate affect, intact judgment & insight - Labs CBC & Chem 7: 05/31/18 05:46 05/31/18 05:46 Labs: Abnormal Lab Results - Last 24 Hours (Table) 05/31/18 05/31/18 Range/Units 05:46 05:46 WBC 14.9 H (3.8-10.6) k/uL Hct 48.0 H (34.0-46.0) % Neutrophils # 11.8 H (1.3-7.7) k/uL Glucose 108 H (74-99) mg/dL - Imaging and Cardiology CT scan - abdomen: report reviewed CT scan - pelvis: report reviewed MRI - head: report reviewed NM bone scan report reviewed Assessment and Plan (1) EGFR-related lung cancer Narrative/Plan: Patient biomarker report did come back positive for an EGFR mutation. Patient is a candidate for EGFR targeted therapy with osimertinib oral treatment. Patient's diagnosis was reviewed with her and her parents. The positive biomarker status was reviewed and the targeted treatment option. Patient does have stage IV disease, the intent of treatment is palliation of symptoms and prolongation of life. With the newer targeted agents prognosis can certainly be extended, sometimes 1-2 years or more based on response to therapy. Pt is interested in trying therapy. This specialty pharmacy medication will be ordered through our office. Will plan f/u appt with pt in the next 5-10 days. Patient has opted for as needed thoracentesis for now. Staging imaging Completed. We reviewed negative CT of the abdomen and pelvis, negative MRI of the brain. Nuclear medicine bone scan has a questionable area in the right rib, uncertain of the exact significance of this. This area will continue to be monitored throughout treatment. All of patient's questions were answered. Status: Acute Priority: High Code(s): C34.90 - MALIGNANT NEOPLASM OF UNSP PART OF UNSP BRONCHUS OR LUNG SNOMED Code(s): 490882385
--- NOTE | 2018-05-31 18:30 | ECHOF ---
Referral Reason:pericardial effusion MEASUREMENTS -------- HEIGHT: 165.1 cm WEIGHT: 120.2 kg BP: 189/96 IVC: 1.9 cm FINDINGS -------- Sinus rhythm. This was a technically difficult study with suboptimal views. Limited Study Overall left ventricular systolic function is normal with, an EF between 60 - 65 %. Lumason used There is a trivial pericardial effusion present. Large Pleural Effusion. Pleural Effusion with Fi brin. CONCLUSIONS -------- 1. Sinus rhythm. 2. This was a technically difficult study with suboptimal views. 3. Limited Study 4. Overall left ventricular systolic function is normal with, an EF between 60 - 65 %. 5. Lumason used 6. There is a trivial pericardial effusion present. 7. Large Pleural Effusion. 8. Pleural Effusion with Fibrin. 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
== END 2018-05-31 15:00 | disposition home or self-care (01) ==
LOC: EC 17:02 → 3SCARD 20:10
PROVIDERS: ADMIT Hospitalist; ATTEND Hospitalist
DX: J91.0 Malignant pleural effusion (principal); J94.2 Hemothorax; J93.83 Other pneumothorax; C34.90 Malignant neoplasm of unspecified part of unspecified bronchus or lung; I10 Essential (primary) hypertension; J94.8 Other specified pleural conditions; D72.829 Elevated white blood cell count, unspecified; R73.9 Hyperglycemia, unspecified; I31.3 Pericardial effusion (noninflammatory); Z68.41 Body mass index [BMI] 40.0-44.9, adult; E66.01 Morbid (severe) obesity due to excess calories; Z82.49 Family history of ischemic heart disease and other diseases of the circulatory system; Z82.5 Family history of asthma and other chronic lower respiratory diseases; Z79.899 Other long term (current) drug therapy
CPT/HCPCS: 32554; 96372 ×4; 96375; 96374; 99285; 36415; 93005; 93308; 83880; 80053; 80048 ×4; 82550; 82553; 83735; 84484; 85025 ×5; 85610; 85730; 81001; 71045 ×2; 71046; 76604; 71250; 74177; 70553; 78306; G0378 ×5; A9503; J2060; J1940; J1650 ×4; A9585; Q9950; Q9967

== ENCOUNTER → 2018-06-03 | Outpatient (CLI) | payer SELFPAY ==
--- NOTE | 2018-06-03 12:38 | XR ---
EXAMINATION TYPE: XR chest 2V DATE OF EXAM: 06/03/2018 COMPARISON: 05/29/2018 TECHNIQUE: PA and lateral views submitted. HISTORY: Abnormal x-ray FINDINGS: There is near complete opacification left hemithorax stable from the prior exam with a small apical p neumothorax compatible hydropneumothorax. Right lung is clear. Heart size is stable. Heart does appea r enlarged. IMPRESSION: 1. Persistent near complete opacification of the left hemithorax. Hydropneumothorax component appears similar to the prior exam but there appears to be increased fluid along the apex of the lung.
== END | disposition home or self-care (01) ==
LOC: RADXRMAIN 12:02
PROVIDERS: ATTEND Nurse Practitioner Family
DX: J94.8 Other specified pleural conditions (principal)
CPT/HCPCS: 71046

== ENCOUNTER → 2018-06-15 | Outpatient (CLI) | payer OTHER ==
--- NOTE | 2018-06-15 16:45 | XR ---
EXAMINATION TYPE: XR chest 2V DATE OF EXAM: 06/15/2018 COMPARISON: 06/03/2018 HISTORY: 48-year-old female lung cancer and pleural effusion TECHNIQUE: Frontal and lateral views FINDINGS: Complete white out of the left hemithorax. The heart remains midline or slightly shifted towards the right suggesting mass effect within the left hemithorax. Right lung appears relatively clear. IMPRESSION: Interval worsening now with complete white out of the left hemithorax likely due to combination of un derlying pleural effusion, consolidation, and mass.
== END | disposition home or self-care (01) ==
LOC: RADXRMAIN 11:59
PROVIDERS: ATTEND Internal Medicine Hematology & Oncology
DX: J90 Pleural effusion, not elsewhere classified (principal); C34.90 Malignant neoplasm of unspecified part of unspecified bronchus or lung; Z71.3 Dietary counseling and surveillance
CPT/HCPCS: 71046

== ENCOUNTER 2018-06-23 07:20 | Day surgery (SDC) | payer OTHER ==
[2018-06-22 09:43] VITALS: BMI 43.9
[~2018-06-23 07:20] MED LIST: DEXAMETHASONE SOD PHOSPHATE 10 MG/ML 1 ML VIAL IV ONE; LIDOCAINE 1% 20 ML VIAL (10MG/ML) FOR IV START INTRADERMA PRN; MIDAZOLAM (PF) 2 MG/2 ML VIAL IV PRN; ONDANSETRON 4 MG/2 ML VIAL IVP ONE; Pre Op ABX Message 1 EACH MISC MISCELLANE ONE
[2018-06-23] MEDS: LACTATED RINGERS 1,000 ML IV SCH ×2 (08:19→09:10)
--- NOTE | 2018-06-23 08:50 | XR ---
EXAMINATION TYPE: XR chest 2V DATE OF EXAM: 06/23/2018 COMPARISON: 06/15/2018 HISTORY: 48-year-old female Pleurx catheter insertion, preoperative assessment, patient with lung can cer TECHNIQUE: Frontal and lateral views FINDINGS: Left heart margin obscured by adjacent pleural parenchymal disease. Right lung and pleural space rela tively clear. Continued complete whiteout of the left hemithorax. Some rightward shift of the heart s uggests mass effect from the left side of chest. IMPRESSION: Overall stable exam with continued complete whiteout of the left hemithorax and associated mass effec t slightly shifting the heart towards the right.
[2018-06-23] MEDS ORDERED: fentaNYL (PF) 50 MCG/ML 2 ML AMP ONE (09:07)
[2018-06-23] MEDS ORDERED: PROPOFOL 10 MG/ML 20 ML VIAL IV ONE (09:07)
[2018-06-23] MEDS ORDERED: LIDOCAINE 1% INJ 10MG/ML (20 ML MDV) ONE (09:07)
[2018-06-23] MEDS ORDERED: MIDAZOLAM 2 MG/2 ML VIAL ONE (09:07)
[2018-06-23] MEDS ORDERED: SODIUM CHLORIDE 0.9% 50 ML with ceFAZolin 2,000 MG IV ONE ×2 (09:20)
[2018-06-23] MEDS ORDERED: LIDOCAINE 1% INJ 10MG/ML (20 ML MDV) SQ ONE (09:35)
[2018-06-23 10:12] VITALS: TEMP 97.6
[2018-06-23] MEDS ORDERED: ALBUTEROL INHALER 60 PUFF/8 GM INHALER INHALATION PRN (10:12)
[2018-06-23] MEDS ORDERED: PROCHLORPERAZINE 10 MG TAB PO PRN (10:12)
--- NOTE | 2018-06-23 10:44 | OP ---
OPERATIVE REPORT DATE OF PROCEDURE: 06/23/2018 PREOPERATIVE DIAGNOSIS: Left malignant pleural effusion. POSTOPERATIVE DIAGNOSIS: Left malignant pleural effusion. PROCEDURE: Placement of left sided PleurX catheter under fluoroscopic guidance. SURGEON: Keith Hamlin MD. ACTING SECTION CHIEF: None. ANESTHESIA: Local with IV sedation. SPECIMEN: Pleural fluid. COMPLICATIONS: None. INDICATION: The patient is a 48-year-old female with a history of morbid obesity who presented to the hospital with shortness of breath. She was found to have a left-sided pleural effusion which was drained. The symptoms improved; however , the pleural fluid recurred and she had a second thoracentesis. Cytology was consistent with metastatic adenocarcinoma with lung primary. Placement of a left PleurX catheter was recommended. The risks, benefits, and alternatives to this procedure were discussed with the patient. All of her questions were answered. Consent was obtained. FINDINGS: Approximately 1800 mL of serous fluid was drained from the left pleural space. PROCEDURE IN DETAIL: The patient was taken to the operating room and placed supine on the operating room table. IV sedation was administered. The left chest and flank were then prepped and draped in the usual sterile fashion. Local anesthetic was infiltrated into the skin and subcutaneous tissue. Using a finder needle, the left pleural space was easily entered. Due to the patient's obesity, a longer needle was used. Under fluoroscopic guidance a guidewire was placed and advanced without difficulty. A counter incision was created. The tract was again infiltrated with local anesthetic. The PleurX catheter was tunneled through the subcutaneous tissue. Using standard Seldinger technique under fluoroscopic guidance, the tract over the guidewire was serially dilated until the breakaway sheath was placed. The PleurX catheter was then introduced into the left pleural space without difficulty. Its position was again confirmed using fluoroscopy. Approximately 1800 mL of serous fluid was drained in total. A portion of fluid was sent to cytology. The catheter was secured to the skin using a silk suture. The counter incision was closed using a Vicryl suture. Sterile dressings were applied. The patient appeared to tolerate the procedure well. There were no immediate complications. She returned to the recovery room in stable condition. MMODL / IJN: [id number] / MTDD
--- NOTE | 2018-06-23 10:45 | XR ---
EXAMINATION TYPE: XR chest 1V portable DATE OF EXAM: 06/23/2018 Comparison: 06/23/2018 Clinical History: 48-year-old female Pleural Catheter placement Findings: Heart mildly enlarged. There is improved mass effect. The heart appears more centered within the ches t. There is a focal opacity at the left apex suggesting underlying consolidation or mass. Residual sm all left effusion is present. There is a pleural age seen at the apex suggesting possible small left apical pneumothorax. The left pleural catheter curls at the midlung and the tip is located at the med ial left base. Impression: 1. Placement of left-sided Pleurx catheter. 2. Small left apical pneumothorax difficult to exclude. Close follow-up recommended. 3. Significant improvement in aeration within the left hemithorax. Patchy consolidation and small lef t effusion remain.
[2018-06-23 10:54] VITALS: RESP 20
[2018-06-23 12:25] VITALS: BP 120/55; PULSE 80
[2018-06-23] MEDS ORDERED: BENZONATATE 100 MG CAP PO SCH (16:00)
[2018-06-23] MEDS ORDERED: OSIMERTINIB MESYLATE 80 MG PO SCH (21:00)
[2018-06-23] MEDS ORDERED: DOXYCYCLINE HYCLATE 100 MG PO SCH (21:00)
--- NOTE | 2018-06-24 07:56 | FL ---
EXAMINATION TYPE: Fluoroscopy support DATE OF EXAM: 06/23/2018 HISTORY: Pleural effusion Fluoroscopy support supplied to the referring clinician. See dictated report from cardiothoracic fernando neelam, 50 seconds fluoroscopy time supplied to the referring clinician, 4 intraoperative C-arm images document the procedure
[2018-06-24] MEDS ORDERED: amLODIPine 5 MG TAB PO SCH (09:00)
== END 2018-06-23 13:56 | disposition home health service (06) ==
LOC: OR 07:20
PROVIDERS: ATTEND Surgery
DX: C34.92 Malignant neoplasm of unspecified part of left bronchus or lung (principal); J91.0 Malignant pleural effusion; E66.9 Obesity, unspecified; I10 Essential (primary) hypertension; Z68.41 Body mass index [BMI] 40.0-44.9, adult; Z79.899 Other long term (current) drug therapy
CPT/HCPCS: 81025; 88108; 88305; 32551; 71045; 71046; 32555; J2250; J1100; J2405; J2001; J3010; J0690; J2704

== ENCOUNTER → 2018-08-04 | Outpatient (CLI) | payer OTHER ==
[2018-08-04 12:53] LABS: Basophils % (A) 1 %; Eosinophils # (A) 0.1 k/uL (0-0.7); Eosinophils % (A) 2 %; HCT 44.3 % (34.0-46.0); HGB 14.2 gm/dL (11.4-16.0); Lymphocytes % (A) 17 %; MCH 29.1 pg (25.0-35.0); MCHC 31.9 g/dL (31.0-37.0); MCV 91.1 fL (80.0-100.0); Mean Platelet Volume 8.3; Monocytes # (A) 0.4 k/uL (0-1.0); Monocytes % (A) 7 %; Neutrophils # (A) 4.3 k/uL (1.3-7.7); Neutrophils % (A) 73 %; Platelet Count 175 k/uL (150-450); RBC 4.87 m/uL (3.80-5.40); RDW 13.1 % (11.5-15.5); WBC 5.9 k/uL (3.8-10.6)
[2018-08-04 12:56] LABS: Partial Thromboplastin Time 24.9 sec (22.0-30.0); Prothrombin Time 10.4 sec (9.0-12.0)
[2018-08-04 12:57] LABS: Magnesium 1.9 mg/dL (1.6-2.3); Potassium 4.1 mmol/L (3.5-5.1)
== END | disposition home or self-care (01) ==
LOC: LABPAT 11:55
PROVIDERS: ATTEND Surgery
DX: Z01.812 Encounter for preprocedural laboratory examination (principal); J90 Pleural effusion, not elsewhere classified
CPT/HCPCS: 80051; 82565; 82947; 83735; 84520; 85025; 85610; 85730

== ENCOUNTER 2018-08-05 07:20 | Day surgery (SDC) | payer OTHER ==
[2018-08-04 10:16] VITALS: BMI 44.6
[~2018-08-05 07:20] MED LIST changes: +HYDROmorphone 0.5 MG/0.5 ML SYRINGE IVP PRN; +LACTATED RINGERS 1,000 ML IV SCH; -Pre Op ABX Message 1 EACH MISC MISCELLANE ONE; +SCOPOLAMINE 1.5MG/72HR PATCH TRANSDERM ONE; +ceFAZolin IN SWFI 2 GM/20 ML SYRINGE IVP ONE
[2018-08-05 07:52] VITALS: TEMP 98.3
[2018-08-05] MEDS ORDERED: LIDOCAINE 1% (PF) 10 MG/ML (30 ML SDV) SQ ONE (09:05)
[2018-08-05] MEDS ORDERED: MIDAZOLAM 2 MG/2 ML VIAL ONE (09:05)
[2018-08-05] MEDS ORDERED: PROPOFOL 10 MG/ML 20 ML VIAL IV ONE (09:05)
[2018-08-05] MEDS ORDERED: fentaNYL (PF) 50 MCG/ML 2 ML AMP ONE (09:05)
[2018-08-05] MEDS ORDERED: KETAMINE 10 MG/ML 20 ML VIAL ONE (09:05)
[2018-08-05] MEDS ORDERED: LIDOCAINE 1% INJ 10MG/ML (20 ML MDV) ONE (09:05)
[2018-08-05 10:27] VITALS: BP 128/78; PULSE 83; RESP 17
--- NOTE | 2018-08-05 15:04 | OP ---
OPERATIVE REPORT DATE OF SURGERY: 08/05/2018 PREOPERATIVE DIAGNOSIS: Pleural effusion. POSTOPERATIVE DIAGNOSIS: Pleural effusion. PROCEDURE: Removal of PleurX catheter. SURGEON: Dr. Keith Hamlin. ASSISTANTS: None. ANESTHESIA: IV sedation. ESTIMATED BLOOD LOSS: None. COMPLICATIONS: None. INDICATION: The patient is a 48-year-old female who had a PleurX catheter placed for recurrent pleural effusions several months ago. She has output and it has down to zero. Removal of the catheter was requested. The risks, benefits and alternatives of the procedure were discussed with the patient. All of her questions were answered. Consent was obtained. PROCEDURE IN DETAIL: The patient was taken to the operating room and placed supine on the operating room table. IV sedation was instituted. The left chest was prepped and draped in the usual sterile fashion. With some gentle traction and dissection, the cuff of the PleurX catheter was freed. The catheter was then easily removed and it appeared to be intact. A sterile dressing was applied. The patient appeared to tolerate the procedure well. There were no immediate complications. She returned to the recovery room in stable condition. MMODL / IJN: [id number] /
== END 2018-08-05 10:18 | disposition home or self-care (01) ==
LOC: OR 07:20
PROVIDERS: ATTEND Surgery
DX: J90 Pleural effusion, not elsewhere classified (principal); C34.90 Malignant neoplasm of unspecified part of unspecified bronchus or lung; C79.9 Secondary malignant neoplasm of unspecified site; E66.01 Morbid (severe) obesity due to excess calories; Z68.41 Body mass index [BMI] 40.0-44.9, adult; Z79.2 Long term (current) use of antibiotics; Z79.899 Other long term (current) drug therapy
CPT/HCPCS: 32552; J2250; J1100; J2405; J2001 ×2; J3010; J2704; J0690

== ENCOUNTER → 2018-08-08 | Outpatient (CLI) | payer OTHER ==
--- NOTE | 2018-08-08 13:52 | US ---
EXAMINATION TYPE: US venous doppler duplex LE RT DATE OF EXAM: 08/08/2018 1:05 PM COMPARISON: NONE CLINICAL HISTORY: 48-year-old female RLE R22.21 Swelling. Swelling x several months. Stage 4 lung ca ncer. Chest tube removed 08/05/18. On chemotherapy. SIDE PERFORMED: Right TECHNIQUE: The lower extremity deep venous system is examined utilizing real time linear array sonog william with graded compression, doppler sonography and color-flow sonography. FINDINGS: VESSELS IMAGED: Common Femoral Vein Deep Femoral Vein Greater Saphenous Vein * Femoral Vein Popliteal Vein Small Saphenous Vein * Proximal Calf Veins Posterior tibial veins (* superficial vessels) Right Leg: No evidence of DVT in the right lower extremity. IMPRESSION: No evidence for DVT within the right lower extremity.
== END | disposition home or self-care (01) ==
LOC: RADUSWWP 12:20
PROVIDERS: ATTEND Internal Medicine Hematology & Oncology
DX: R22.41 Localized swelling, mass and lump, right lower limb (principal)

== ENCOUNTER → 2018-08-29 | Outpatient (CLI) | payer OTHER ==
--- NOTE | 2018-08-29 11:00 | CT ---
EXAMINATION TYPE: CT chest w con DATE OF EXAM: 08/29/2018 COMPARISON: 05/28/2018 HISTORY: Lung CA CT DLP: 766.3 mGycm Automated exposure control for dose reduction was used. CONTRAST: CT scan of the chest is performed with IV Contrast, patient injected with 100 mL of Isovue 300. FINDINGS: LUNGS: There is enhancing left suprahilar mass measuring 3.3 x 2.8 cm markedly improved from prior ex amination where there was a combination of left hilar mass and postobstructive atelectasis/pneumonia. There is a loculated left upper lobe pleural effusion noted. There is also a loculated left lower lo be pleural effusion moderate to large in size. Scattered groundglass infiltrates are noted bilaterall y. Linear atelectasis left lower lobe. MEDIASTINUM: Persistent pericardial effusion essentially unchanged relative to the prior study. Much improved the prevascular adenopathy with a few remaining subcentimeter lymph nodes are appreciated. N o additional mediastinal adenopathy identified at this time. No hilar. UPPER ABDOMEN: No significant abnormality appreciated. OTHER: No additional significant abnormality is seen. IMPRESSION: 1. Enhancing left suprahilar mass measuring 3.3 x 2.8 cm markedly improved from prior examination as noted above. Loculated pleural effusions and subcentimeter prevascular space lymph nodes identified a t this time representing marked interval improvement.
== END | disposition home or self-care (01) ==
LOC: RADCTMAIN 09:06
PROVIDERS: ATTEND Internal Medicine Hematology & Oncology
DX: J90 Pleural effusion, not elsewhere classified (principal); R91.8 Other nonspecific abnormal finding of lung field; C34.90 Malignant neoplasm of unspecified part of unspecified bronchus or lung
CPT/HCPCS: 82565; 84520; 71260; 36415; Q9967

== ENCOUNTER → 2019-02-28 | Outpatient (CLI) | payer OTHER ==
--- NOTE | 2019-02-28 13:48 | CT ---
EXAMINATION TYPE: CT ChestAbdPelvis w con DATE OF EXAM: 02/28/2019 COMPARISON: Chest 08/29/2018 and abdomen pelvis 05/30/2018 HISTORY: 49-year-old female lung CA, observe for mets TECHNIQUE: Contiguous axial scanning of the chest, abdomen, and pelvis performed with IV Contrast, pa tient injected with 100 mL of Isovue 300. Coronal/sagittal reconstructions performed. CT DLP: 1961 mGycm Automated exposure control for dose reduction was used. FINDINGS: CHEST: The heart is upper limits of normal in size now with trace pericardial fluid, decreased from prior. Motion artifacts along the ascending aorta. Conventional arterial branching anatomy. Here to overall normal caliber. There is been interval decrease in the patient's left pleural effusion though with persistent small t o moderate subpulmonic effusion on the left and some loculated pleural fluid peripherally along the l eft midlung and superiorly along the left major fissure, also decreased in the interval. Focal left suprahilar density measures 3.4 x 1.4 cm versus 3.1 x 2.0 cm on 08/29/2018, overall more leonidas ngated but less bulky in appearance, likely representing some superimposed atelectasis or scarring. Scattered nonenlarged mediastinal lymph nodes are unchanged. No new thoracic lymphadenopathy. Calcified granuloma posterior right apex. Patchy bibasilar groundglass and some additional patchy basilar right middle lobe and posterior basil ar left lower lobe opacity. This is improved at the left base but is larger at the right middle lobe measuring 1 cm versus 7 mm, previously. ABDOMEN: Tiny hiatal hernia. Liver limits of normal in size at 17.4 cm. No focal liver lesion or biliary ductal dilatation. Gallbladder, adrenal glands, kidneys, spleen with hilar splenule, and pancreas appear within normal l imits. No dilated small bowel, free fluid, or free air. No mesenteric or retroperitoneal lymphadenopathy. Oral contrast has progressed to the distal sigmoid. No pericolonic inflammatory change. Pelvis: Bladder is urine distended. Uterus anteverted. Right ovary is visualized. Left ovary is not clearly d elineated. No abnormal fluid collection in the pelvis or pelvic lymphadenopathy. Bones: Facet arthropathy lower lumbar spine. Endplate spondylosis lower thoracic spine. No osseous destructi ve process. IMPRESSION: 1. DECREASING SIZE OF THE SUBPULMONIC LEFT PLEURAL EFFUSION AND AREAS OF ADDITIONAL LOCULATED PLEURAL FLUID ON THE LEFT. 2. DECREASING, NOW TRACE PERICARDIAL FLUID. 3. FOCAL LEFT SUPRAHILAR DENSITY CURRENTLY MEASURES 3.4 X 1.4 CM (VERSUS 3.1 X 2.0 CM, PREVIOUSLY), O VERALL MORE ELONGATED BUT LESS BULKY IN APPEARANCE, LIKELY SITE OF TREATED DISEASE WITH SUPERIMPOSED ATELECTASIS/SCARRING. CONTINUED FOLLOW-UP CAN BE PERFORMED. 4. PATCHY BIBASILAR GROUNDGLASS COULD REPRESENT POSTTREATMENT CHANGE OR AN INTERSTITIAL PNEUMONITIS S UCH DIP. 5. THE RIGHT MIDDLE LOBE 1 CM NODULAR DENSITY PREVIOUSLY MEASURED 7 MM. ATTENTION ON FOLLOW-UP. INFLA MMATORY FOCUS IS SUSPECTED RATHER THAN NEOPLASM. 6. OTHERWISE, NO NEW LYMPHADENOPATHY OR EVIDENCE FOR DISEASE PROGRESSION.
== END | disposition home or self-care (01) ==
LOC: RADCTMAIN 07:47
PROVIDERS: ATTEND Internal Medicine Hematology & Oncology
DX: J90 Pleural effusion, not elsewhere classified (principal); J98.4 Other disorders of lung; C34.90 Malignant neoplasm of unspecified part of unspecified bronchus or lung
CPT/HCPCS: 82565; 84520; 71260; 74177; 36415; Q9967 ×2

== ENCOUNTER → 2019-06-28 | Outpatient (CLI) | payer OTHER ==
--- NOTE | 2019-06-28 08:39 | MM ---
Reason for exam: screening (asymptomatic). Baseline mammogram. History: Patient is postmenopausal and history of other cancer. Physical Findings: Nurse did not find any significant physical abnormalities on exam. MG Screening Mammo w CAD Bilateral CC and MLO view(s) were taken. There are scattered fibroglandular densities. There is a benign right oil cyst. No suspicious abnormality. These results were verbally communicated with the patient and result sheet given to the patient on 06/28/19. ASSESSMENT: Benign, BI-RAD 2 RECOMMENDATION: Routine screening mammogram of both breasts in 1 year.
== END | disposition home or self-care (01) ==
LOC: RADMAMWWP 07:11
PROVIDERS: ATTEND Family Medicine
DX: Z12.31 Encounter for screening mammogram for malignant neoplasm of breast (principal); C34.90 Malignant neoplasm of unspecified part of unspecified bronchus or lung
CPT/HCPCS: 77067

== ENCOUNTER → 2019-09-04 | Outpatient (CLI) | payer OTHER ==
--- NOTE | 2019-09-04 13:49 | CT ---
EXAMINATION TYPE: CT ChestAbdPelvis w con DATE OF EXAM: 09/04/2019 INDICATION: f/u lung ca COMPARISON: 02/28/2019 CT DLP: 2608.8 mGycm CONTRAST: Performed with Oral Contrast and with IV Contrast, patient injected with 80cc mL of Isovue 300. TECHNIQUE: Axial images at 5 mm thick sections. Reconstructed images in the coronal plane. Delayed images through the kidneys. FINDINGS: CT CHEST: Portion of the thyroid visualized is normal. There is a streak opacity in the left apex extending from the aortic arch towards the periphery. This measures 4.3 x 1.3 cm. This is compared to 3 measuring on the prior density on mediastinal windows o f 4.2 x 1.5 cm. There is a faint density anterior to the larger density measuring 0.5 cm. Series 4 image 14. This may be an interval finding. There is some patchy infiltrates at the left lung base. There is vague groun dglass opacity in the right infrahilar region. Correlate for infection. Previous pleural effusion has diminished. Some residual pleural effusion is at the left base. No enlarged mediastinal or hilar adenopathy is evident. The ascending aorta diameter at the level of the main pulmonary artery is 3.9 cm. The main pulmonary artery diameter at the bifurcation is 2.[address] ABDOMEN: Liver: Normal Spleen: Normal Pancreas: Normal Adrenal glands: The adrenal glands are normal. Gallbladder: Normal Kidneys: No masses are evident. No hydronephrosis is present. No cysts are present. Delayed images were obtained through the kidneys, which remain unremarkable. There is some malrotation of the right kidney. Aorta: Normal Inferior vena cava: Normal. CT PELVIS: Loops of bowel within the abdomen and pelvis are normal. There are loops of bowel which are incom pletely distended or lack oral contrast limiting their evaluation. Appendix: Normal as visualized. Urinary bladder: Normal. Genitourinary structures: Uterus is normal. Adnexal regions are unremarkable. Osseous structures: No suspicious lytic or sclerotic lesions. IMPRESSIONS: 1. Slight improvement of a left upper lobe density and diminished loculated pleural effusion adjacent . 2. Some residual pleural effusion at the left lung base. 3. There may be some interval development of subtle 0.5 cm density anterior to the mass. There are al so groundglass opacities at the right infrahilar region. Infectious etiology should be considered as well.
== END | disposition home or self-care (01) ==
LOC: RADCTMAIN 11:15
PROVIDERS: ATTEND Internal Medicine Hematology & Oncology
DX: Z03.89 Encounter for observation for other suspected diseases and conditions ruled out (principal); J90 Pleural effusion, not elsewhere classified; R91.8 Other nonspecific abnormal finding of lung field; C34.90 Malignant neoplasm of unspecified part of unspecified bronchus or lung
CPT/HCPCS: 82565; 84520; 71260; 74177; 36415; Q9967

== ENCOUNTER 2019-11-06 08:37 | Day surgery (SDC) | payer OTHER ==
[2019-11-02 10:06] VITALS: BMI 49.8
[~2019-11-06 08:37] MED LIST changes: -DEXAMETHASONE SOD PHOSPHATE 10 MG/ML 1 ML VIAL IV ONE; -HYDROmorphone 0.5 MG/0.5 ML SYRINGE IVP PRN; +LIDOCAINE 1% (10MG/ML) FOR IV START INTRADERMA PRN; -LIDOCAINE 1% 20 ML VIAL (10MG/ML) FOR IV START INTRADERMA PRN; -MIDAZOLAM (PF) 2 MG/2 ML VIAL IV PRN; -ONDANSETRON 4 MG/2 ML VIAL IVP ONE; -SCOPOLAMINE 1.5MG/72HR PATCH TRANSDERM ONE; -ceFAZolin IN SWFI 2 GM/20 ML SYRINGE IVP ONE
[2019-11-06 08:54] VITALS: TEMP 97.8
[2019-11-06] MEDS ORDERED: PROPOFOL 10 MG/ML 20 ML VIAL IV ONE (09:22)
--- NOTE | 2019-11-06 09:47 | P.PCN ---
Date of Procedure: 11/06/19 Description of Procedure: BRIEF HISTORY: Patient is a 49-year-old female presenting for outpatient colonoscopy for screening for malignant neoplasm of the colon. No prior colonoscopy reported. No change in bowel habits, blood per rectum or abdominal pain. PROCEDURE PERFORMED: Colonoscopy with polypectomy. PREOPERATIVE DIAGNOSIS: Screening for malignant neoplasm of the colon, no prior colonoscopy. ESTIMATED BLOOD LOSS: Minimal. IV sedation per Anesthesia. PROCEDURE: After informed consent was obtained, the patient, was brought into the endoscopy unit. IV sedation was administered by Anesthesia under continuous monitoring. Digital rectal examination was normal. Initially the Olympus CF-190 flexible video colonoscope was then inserted in the rectum, gradually advanced into the cecum without any difficulty. Careful examination was performed as the scope was gradually being withdrawn. Ileocecal valve and the appendiceal orifice were visualized and appeared normal. Prep was excellent. Mucosa of the cecum, ascending colon, transverse colon, descending colon, sigmoid colon, and rectum appeared normal. 2 diminutive sessile ascending colon polyp measuring 2 and 3 mm in size and one diminutive sigmoid colon polyp measuring 2 mm in size all removed with cold forcep polypectomy. A few scattered diverticula in the sigmoid colon noted. Retroflexion was performed in the rectum and no lesions were seen, low-grade internal hemorrhoids. The patient tolerated the procedure well. IMPRESSION: 3 diminutive polyps removed from the colon, descending sigmoid and one from the sigmoid with forceps. Mild sigmoid diverticulosis. Normal-appearing colon from rectum to cecum. RECOMMENDATIONS: Findings of this examination were discussed with the patient and her family. Okay to resume diet. Okay to resume medication. Await pathology polypectomy. Would recommend repeat colonoscopy in 5 years pending pathology from polypectomy.
[2019-11-06 10:05] VITALS: BP 121/63; PULSE 76; RESP 16
== END 2019-11-06 10:17 | disposition home or self-care (01) ==
LOC: ORWHC2ENDO 08:37
PROVIDERS: ATTEND Internal Medicine
DX: Z12.11 Encounter for screening for malignant neoplasm of colon (principal); D12.2 Benign neoplasm of ascending colon; K63.5 Polyp of colon; K57.30 Diverticulosis of large intestine without perforation or abscess without bleeding; K64.8 Other hemorrhoids; I10 Essential (primary) hypertension; C34.92 Malignant neoplasm of unspecified part of left bronchus or lung; Z79.899 Other long term (current) drug therapy; Z98.890 Other specified postprocedural states
CPT/HCPCS: 88305; 45380; J2704

== ENCOUNTER → 2020-03-20 | Outpatient (CLI) | payer OTHER ==
--- NOTE | 2020-03-20 11:13 | CT ---
EXAMINATION TYPE: CT ChestAbdPelvis wo con DATE OF EXAM: 03/20/2020 COMPARISON: CT chest abdomen and pelvis September 04, 2019 and older CTs. HISTORY: Lung CA, Obsv. for Mets, currently on chemotherapy per patient CT DLP: 2773.0 mGycm. Automated Exposure Control for Dose Reduction was Utilized. TECHNIQUE: CT scan of the thorax, abdomen and pelvis is performed with oral but without IV contrast due to dimin ished renal function. FINDINGS: LUNGS: Persistent masslike consolidation posterior left upper lobe measuring 4.0 x 1.4 cm axial image 12 abutting the mediastinum not significantly changed from prior studies, this extends to the suprah ilar region where there is masslike peribronchial wall thickening which appears unchanged from most r ecent prior study near axial image 19 for reference. There is however new suspicious 12 x 11 mm nodul e anterior superior to this axial image 14 and smaller 5 mm subpleural nodule medially on axial image 12 noted on current study. Persistent 1.6 x 1.0 cm peripheral irregular consolidation left lower axial image 31 not progressed f rom prior study. Scarlike opacity posteriorly axial image 31 less prominent versus most recent prior. Persistent central groundglass opacity in the right middle lobe axial image 31 not significantly maurizio nged from prior. Tiny left basilar pleural effusion is slightly improved. [id number] linear sca rring and/or atelectasis again seen. Stable calcified 3 mm nodule left lung base on axial image 41. P ossible new 4 mm nodule anteriorly left lung base axial image 38. MEDIASTINUM: There are no new greater than 1 cm hilar or mediastinal lymph nodes. Marked interval i mprovement in thoracic adenopathy from initial studies. Tiny pericardial effusion remains present. N o cardiomegaly. LIVER/GB: No significant abnormality is appreciated. PANCREAS: No significant abnormality is seen. SPLEEN: No significant abnormality is seen. ADRENALS: No significant abnormality is seen. KIDNEYS: No significant abnormality is seen. BOWEL: Oral contrast reaches level of rectum. No suspicious small or large bowel dilatation. GENITAL ORGANS: Anteverted uterus. LYMPH NODES: No greater than 1cm abdominal or pelvic lymph nodes are appreciated. OSSEOUS STRUCTURES: Slight scoliotic curvature. OTHER: No significant additional abnormality is seen. IMPRESSION: Slight improvement but residual tiny left pleural fluid collection. Stable left suprahil ar elongated density but new suspicious anterior 12 mm nodule to this worrisome for neoplastic progre ssion. Consider PET/CT follow-up.
== END | disposition home or self-care (01) ==
LOC: RADCTMAIN 07:43
PROVIDERS: ATTEND Internal Medicine Hematology & Oncology
DX: J94.8 Other specified pleural conditions (principal); J98.4 Other disorders of lung; C34.90 Malignant neoplasm of unspecified part of unspecified bronchus or lung; Z92.21 Personal history of antineoplastic chemotherapy
CPT/HCPCS: 82565; 84520; 71250; 74176; 36415; Q9967

== ENCOUNTER → 2020-05-20 | Outpatient (CLI) | payer OTHER | END | disposition home or self-care (01) | LOC: RADMRIMAIN 11:50 | PROVIDERS: ATTEND Internal Medicine Hematology & Oncology | DX: Z53.9 Procedure and treatment not carried out, unspecified reason (principal) ==

== ENCOUNTER → 2020-05-21 | Outpatient (CLI) | payer OTHER ==
--- NOTE | 2020-05-21 12:11 | CT ---
EXAMINATION TYPE: CT ChestAbdPelvis w con DATE OF EXAM: 05/21/2020 COMPARISON: Most recent CT March 20, 2020 and older studies HISTORY: Lung CA, pt currently receiving daily chemo pill CT DLP: 3037.2 mGycm. Automated Exposure Control for Dose Reduction was Utilized. CONTRAST: CT scan of the thorax, abdomen and pelvis is performed with oral and with IV Contrast, patient inject ed with 100 mL of Isovue 300. FINDINGS: LUNGS: Stable elongated masslike consolidation 3.8 x 1.7 cm posterior left upper lobe axial image 14. This abuts the mediastinum extends to the left suprahilar region where there is slightly more nodula r 1.6 cm component axial image 18 redemonstrated. Left upper lobe bronchus shows narrowing and surrou nding wall thickening. There is enlarging adjacent anterior 1.8 x 1.6 cm nodule axial image 18 with e nlarging adjacent satellite nodules along the anterior superior aspect axial image 15. Left-sided vol ume loss redemonstrated with mild/moderate left basilar linear scarring. Groundglass opacities and re ticulation right middle lobe centrally near axial image 31 remain present . Perhaps posttreatment maurizio nge. MEDIASTINUM: There are no new greater than 1 cm hilar or mediastinal lymph nodes. No cardiomegaly o r pericardial effusion is seen. LIVER/GB: No significant abnormality is appreciated. PANCREAS: No significant abnormality is seen. SPLEEN: No significant abnormality is seen. ADRENALS: No significant abnormality is seen. KIDNEYS: No significant abnormality is seen. BOWEL: Oral contrast reaches level of sigmoid colon. No suspicious small or large bowel dilatation. GENITAL ORGANS: The uterus is surgically absent. LYMPH NODES: No greater than 1cm abdominal or pelvic lymph nodes are appreciated. OSSEOUS STRUCTURES: Slight scoliotic curvature with multilevel spurring. OTHER: Small fat-containing umbilical hernia. IMPRESSION: Some local neoplastic progression left suprahilar region is felt present as detailed abov e. No new metastatic disease is evident.
--- NOTE | 2020-05-21 12:45 | ECHOF ---
Referral Reason:Z01.818 chemo exposure MEASUREMENTS -------- HEIGHT: 162.6 cm WEIGHT: 136.1 kg BP: RVIDd: 3.9 cm (< 3.3) IVSd: 1.5 cm (0.6 - 1.1) LVIDd: 4.2 cm (3.9 - 5.3) LVPWd: 1.7 cm (0.6 - 1.1) IVSs: 2.0 cm LVIDs: 2.7 cm LVPWs: 1.7 cm LAESV Index (A-L): 23.15 ml/m Ao Diam: 3.3 cm (2.0 - 3.7) AV Cusp: 2.4 cm (1.5 - 2.6) MV E Lawson: 1.08 m/s MV DecT: 102 ms MV A Lawson: 1.16 m/s MV E/A Ratio: 0.93 RAP: 5.00 mmHg RVSP: 18.09 mmHg FINDINGS -------- Sinus rhythm. This was a technically difficult study with suboptimal views. The left ventricular size is normal. There is moderate concentric left ventricular hypertrophy. O verall left ventricular systolic function is normal with, an EF between 55 - 60 %. The diastolic fi lling pattern is normal for the age of the patient 11.17. The right ventricle is mild to moderately enlarged. Normal LA size by volume 22+/-6 ml/m2. The right atrial size is normal. xx ml of Lumason was utilized for enhancement of images. Interatrial and interventricular septum intact. The aortic valve was not well visualized. There is no evidence of aortic regurgitation. There is no evidence of aortic stenosis. No mitral regurgitation. Mild tricuspid regurgitation present. There is no evidence of pulmonary hypertension. The right v entricular systolic pressure, as measured by Doppler, is 18.09mmHg. The pulmonic valve was not well visualized. The aortic root size is normal. IVC Not well visulized. There is a small, generalized pericardial effusion present. CONCLUSIONS -------- 1. The left ventricular size is normal. 2. There is moderate concentric left ventricular hypertrophy. 3. Overall left ventricular systolic function is normal with, an EF between 55 - 60 %. 4. The diastolic filling pattern is normal for the age of the patient 11.17 5. The right ventricle is mild to moderately enlarged. 6. Normal LA size by volume 22+/-6 ml/m2. 7. Mild tricuspid regurgitation present. 8. There is a small, generalized pericardial effusion present. SERVER SOFTWARE ENGINEER: Franci Fairchild RDCS
== END | disposition home or self-care (01) ==
LOC: RADCTMAIN 09:12
PROVIDERS: ATTEND Internal Medicine Hematology & Oncology
DX: C34.90 Malignant neoplasm of unspecified part of unspecified bronchus or lung (principal)
CPT/HCPCS: 82565; 84520; 71260; 74177; 36415; C8929; Q9950; Q9967; 93306

== ENCOUNTER → 2020-05-23 | Outpatient (CLI) | payer OTHER ==
--- NOTE | 2020-05-23 14:42 | MR ---
EXAMINATION TYPE: MR brain wo/w con DATE OF EXAM: 05/23/2020 COMPARISON: 05/31/2018 HISTORY: Lung cancer. CONTRAST: Performed utilizing 14 mL intravenous Gadavist gadolinium contrast. TECHNIQUE: Multiplanar, multiecho imaging on a 3.0 Kaylyn magnet is performed through the brain. Stud y is performed within 24 hours of arrival to the hospital. The craniovertebral junction is normal. The pituitary is normal. Diffusion-weighted imaging is performed. No abnormal hyperintensity is present to suggest an acute i ntracranial infarct or acute ischemic change. There are scattered punctate areas of hyperintensity on T2 and Inversion Recovery weighted sequences which are non-specific but can be related to microvascular ischemic changes. Some slightly more diffu se uptake through the centrum semiovale could be related to prior radiation treatment. Ventricles and sulci are appropriate for the patient age. Subcutaneous nodules are again evident. This includes posterior left neck 2 nodules, and left parieta l vertex. The parietal vertex 1.1 cm lesion is stable. The 2 lesions in the posterior left neck have diminished in size over the interval. IMPRESSIONS: 1. Mild white matter changes may be related to prior radiation treatment. A few punctate areas of chr onic appearing white matter ischemic change are likely present and are stable from comparison. 2. Subcutaneous nodules have diminished in size from comparison. 3. No new intracranial suspicious nodules to suggest metastatic disease
== END | disposition home or self-care (01) ==
LOC: RADMRIMAIN 10:58
PROVIDERS: ATTEND Internal Medicine Hematology & Oncology
DX: C34.90 Malignant neoplasm of unspecified part of unspecified bronchus or lung (principal); G93.89 Other specified disorders of brain; R90.89 Other abnormal findings on diagnostic imaging of central nervous system
CPT/HCPCS: 70553; A9585

== ENCOUNTER → 2020-05-31 | Outpatient (CLI) | payer OTHER ==
--- NOTE | 2020-05-31 13:40 | PE ---
EXAMINATION TYPE: PET CT fusion skull to thigh DATE OF EXAM: 05/31/2020 COMPARISON: Most recent CT May 21, 2020 and older studies. No prior PET CT at this institution. HISTORY: Lung cancer progress study , diagnosed May 27, 2018, currently on chemotherapy. TECHNIQUE: Following the intravenous administration of 13.03 mCi of F-18 FDG, whole body images are performed from the skull base to the midthigh. Images are reviewed on the computer in the coronal, a xial, and sagittal planes. Reconstructed rotating images are created on independent workstation and reviewed on the computer. A localization and attenuation correction CT is performed in conjunction with the PET scan. SCAN: Subsequent Scan FINDINGS: SKULL BASE AND NECK: No suspicious hypermetabolic adenopathy. CHEST, MEDIASTINUM, AND HILAR REGION: Stable masslike low dense consolidation posterior left upper lo be axial image 72 without hypermetabolic uptake in majority of the lesion until the inferior medial a spect where there is slightly more hyperdense CT component and mild hypermetabolic uptake on axial im age 74 over roughly 1.5 cm segment, max SUV is 3.36. Just anterior to this there is a 1.5 x 1.3 cm hy permetabolic nodule image 75 redemonstrated, Max SUV is 5.01. Some central groundglass opacities in the lower lungs redemonstrated with more peripheral left basila r nodular consolidation axial image 100 redemonstrated. There is more central 1.3 x 0.9 cm nodule or nodular consolidation left lower lobe axial image 102 redemonstrated. These areas show no suspicious hypermetabolic uptake. New Tiny left-sided pleural fluid collection. There is 8mm subpleural nodule with mild hypermetabolic upt olesya, max SUV 2.7 on axial image 110. ABDOMEN AND PELVIS: Superior to the bladder there is abnormal rectangular shaped hypermetabolic uptak e in the central aspect of the uterus, endometrial stripe not well visualized. Max SUV is 18.07. Neop lasm at this level needs to be considered. No suspicious hypermetabolic uptake otherwise seen. No adr enal masses. OSSEOUS STRUCTURES: No suspicious abnormal hypermetabolic uptake. OTHER CT: Tiny pericardial effusion current study. Tiny right-sided pelvic phlebolith. Mild multileve l spurring in the spine. Small fat-containing umbilical hernia. IMPRESSION: Local neoplastic recurrence left suprahilar region is felt confirmed with new lesions lynne wing increased hypermetabolic uptake. There is suspicious hypermetabolic uptake centrally in the uter us assuming patient's is postmenopausal, primary endometrial carcinoma needs to be excluded. Correlat e clinically.
== END | disposition home or self-care (01) ==
LOC: RADPETMAIN 11:03
PROVIDERS: ATTEND Radiology Radiation Oncology
DX: J98.4 Other disorders of lung (principal); D49.1 Neoplasm of unspecified behavior of respiratory system; C34.12 Malignant neoplasm of upper lobe, left bronchus or lung
CPT/HCPCS: 78815; A9552

== ENCOUNTER → 2020-07-13 | Outpatient (CLI) | payer OTHER | END | disposition home or self-care (01) | LOC: RADMRIMAIN 07:30 | PROVIDERS: ATTEND Radiology Radiation Oncology | DX: Z53.9 Procedure and treatment not carried out, unspecified reason (principal) ==

== ENCOUNTER → 2020-08-20 | Outpatient (CLI) | payer OTHER ==
--- NOTE | 2020-08-20 12:01 | ECHOF ---
Referral Reason:C34.90 Lung Ca MEASUREMENTS -------- HEIGHT: 162.6 cm WEIGHT: 140.6 kg BP: IVSd: 1.3 cm (0.6 - 1.1) LVIDd: 4.8 cm (3.9 - 5.3) LVPWd: 1.4 cm (0.6 - 1.1) IVSs: 1.5 cm LVIDs: 2.1 cm LVPWs: 1.7 cm Ao Diam: 3.4 cm (2.0 - 3.7) AV Cusp: 2.1 cm (1.5 - 2.6) LA Diam: 2.9 cm (2.7 - 3.8) MV E Lawson: 0.95 m/s MV DecT: 229 ms MV A Lawson: 1.08 m/s MV E/A Ratio: 0.88 RAP: 5.00 mmHg RVSP: 14.00 mmHg FINDINGS -------- This was a technically difficult study with suboptimal views. The left ventricular size is normal. There is moderate concentric left ventricular hypertrophy. O verall left ventricular systolic function is normal with, an EF between 55 - 60 %. Right side appears enlarged. The left atrial size is normal. The right atrial size is normal. Lumason used Unable to visualize the septum. The aortic valve was not well visualized. The mitral valve is normal. There is trace mitral regurgitation. The tricuspid valve appears structurally normal. Trace tricuspid regurgitation present. Right precious tricular systolic pressure is normal at < 35 mmHg. The pulmonic valve was not well visualized. The aortic root size is normal. IVC Not well visulized. There is no pericardial effusion. CONCLUSIONS -------- 1. The left ventricular size is normal. 2. There is moderate concentric left ventricular hypertrophy. 3. Overall left ventricular systolic function is normal with, an EF between 55 - 60 %. 4. Right side appears enlarged. 5. There is trace mitral regurgitation. 6. Trace tricuspid regurgitation present. 7. There is no pericardial effusion. TERRITORY SUPERVISOR: Christine Myers, [facility]
--- NOTE | 2020-08-20 15:06 | CT ---
EXAMINATION TYPE: CT ChestAbdPelvis w con DATE OF EXAM: 08/20/2020 INDICATION: Lung Cancer COMPARISON: 05/31/2020 CT DLP: 2835 mGycm CONTRAST: Performed with Oral Contrast and with IV Contrast, patient injected with 100 ml mL of Isovue 300. TECHNIQUE: Axial images at 5 mm thick sections. Reconstructed images in the coronal plane. Delayed images through the kidneys. FINDINGS: CT CHEST: Portion of the thyroid visualized is normal. Nodule and thickening along the major fissure at the left apex remain present. Small left pleural effusion is present. No enlarged mediastinal or hilar adenopathy is evident. The ascending aorta diameter at the level of the main pulmonary artery is 4.0 cm. The main pulmonary artery diameter at the bifurcation is 3.[address] ABDOMEN: Liver: Normal Spleen: Normal, splenules at the splenic hilum. Pancreas: Normal Adrenal glands: The adrenal glands are normal. Gallbladder: Normal Kidneys: No masses are evident. No hydronephrosis is present. No cysts are present. Aorta: Normal Inferior vena cava: Normal. CT PELVIS: Loops of bowel within the abdomen and pelvis are normal. There are loops of bowel which are incom pletely distended or lack oral contrast limiting their evaluation. Appendix: Not identified. Urinary bladder: Normal. Genitourinary structures: Uterus appears somewhat bulky. Discrete abnormality to correlate with PET f indings is not identified. Osseous structures: No suspicious lytic or sclerotic lesions. IMPRESSIONS: 1. 1. Left apical nodule thickening suspicious for recurrence. 2. Bulky uterus. Discrete abnormality not identified to correlate with PET scan
== END | disposition home or self-care (01) ==
LOC: RADECHMAIN 10:29
PROVIDERS: ATTEND Internal Medicine Hematology & Oncology
DX: N85.2 Hypertrophy of uterus (principal); I08.1 Rheumatic disorders of both mitral and tricuspid valves; Z01.818 Encounter for other preprocedural examination; C34.90 Malignant neoplasm of unspecified part of unspecified bronchus or lung
CPT/HCPCS: 82565; 84520; 71260; 74177; 36415; C8929; Q9950; Q9967; 93306

== ENCOUNTER → 2021-01-02 | Outpatient (CLI) | payer MEDICARE, OTHER ==
--- NOTE | 2021-01-02 18:00 | ECHOF ---
Referral Reason:Z01.818 Chemo exposure MEASUREMENTS -------- HEIGHT: 162.6 cm WEIGHT: 140.6 kg BP: RVIDd: 3.9 cm (< 3.3) IVSd: 1.0 cm (0.6 - 1.1) LVIDd: 5.0 cm (3.9 - 5.3) LVPWd: 1.2 cm (0.6 - 1.1) IVSs: 1.4 cm LVIDs: 3.7 cm LVPWs: 1.7 cm LAESV Index (A-L): 22.35 ml/m Ao Diam: 3.4 cm (2.0 - 3.7) AV Cusp: 1.9 cm (1.5 - 2.6) LA Diam: 4.3 cm (2.7 - 3.8) MV E Lawson: 1.01 m/s MV DecT: 107 ms MV A Lawson: 1.13 m/s MV E/A Ratio: 0.89 RAP: 5.00 mmHg RVSP: 22.11 mmHg FINDINGS -------- Sinus rhythm. This was a technically difficult study with suboptimal views. The left ventricular size is normal. There is borderline concentric left ventricular hypertrophy. Overall left ventricular systolic function is normal with, an EF between 55 - 60 %. The right ventricle is mild to moderately enlarged. Normal LA size by volume 22+/-6 ml/m2. The right atrium was not well visualized. 5.0mg of Lumason was utilized for enhancement of images Interatrial and interventricular septum intact. The aortic valve was not well visualized. There is no evidence of aortic regurgitation. There is no evidence of aortic stenosis. No mitral regurgitation. Mild tricuspid regurgitation present. There is no evidence of pulmonary hypertension. The right v entricular systolic pressure, as measured by Doppler, is 22.11mmHg. There is no pulmonic regurgitation present. The aortic root size is normal. IVC Not well visulized. There is no pericardial effusion. CONCLUSIONS -------- 1. The left ventricular size is normal. 2. There is borderline concentric left ventricular hypertrophy. 3. Overall left ventricular systolic function is normal with, an EF between 55 - 60 %. 4. The right ventricle is mild to moderately enlarged. 5. Mild tricuspid regurgitation present. TUBING MILL OPERATOR: Malia Leung [facility]
== END | disposition home or self-care (01) ==
LOC: RADECHMAIN 13:28
PROVIDERS: ATTEND Internal Medicine Hematology & Oncology
DX: Z01.818 Encounter for other preprocedural examination (principal); I07.1 Rheumatic tricuspid insufficiency
CPT/HCPCS: C8929; Q9950; 93306

== ENCOUNTER → 2021-01-03 | Outpatient (CLI) | payer MEDICARE, OTHER ==
--- NOTE | 2021-01-07 06:02 | PE ---
EXAMINATION TYPE: PET CT fusion skull to thigh DATE OF EXAM: 01/03/2021 COMPARISON: Most recent CT August 20, 2020 and older studies. Prior PET/CT May 31, 2020. HISTORY: Left-sided lung cancer diagnosed June 12, 2018 with history of ongoing chemotherapy and r adiation treatment ending June. TECHNIQUE: Following the intravenous administration of 12.0 mCi of F-18 FDG, whole body images are p erformed from the skull base to the midthigh. Images are reviewed on the computer in the coronal, ax ial, and sagittal planes. Reconstructed rotating images are created on independent workstation and r eviewed on the computer. A localization and attenuation correction CT is performed in conjunction w ith the PET scan. Blood glucose level equals 98. SCAN: Subsequent Scan FINDINGS: Exam suboptimal due to patient's large body habitus. SKULL BASE AND NECK: No no areas of suspicious hypermetabolic adenopathy. CHEST, MEDIASTINUM, AND HILAR REGION: Stable masslike low dense consolidation posterior left upper lo be axial image 72 without hypermetabolic uptake in majority of the lesion until the inferior medial a spect where there is slightly more hyperdense CT component at suprahilar level and mild hypermetaboli c uptake on axial image 76 redemonstrated over roughly 1.5 cm segment, max SUV is 3.71 versus 3.36 pr ior study. Just anterior to this there is prior visualized hypermetabolic nodule or nodular consolida tion is not clearly seen on current study. Small focus of groundglass opacity with slight nodularity axial image 82 is seen on current study pre sumed infectious or inflammatory in etiology. Max SUV less than 2.5. There is enlarging more central 2.1 x 1.3 cm nodule versus 1.3 x 0.9 cm on prior study left lower lo be axial image 99 currently. Abnormal hypermetabolic uptake, max SUV is 4.34. New adjacent micronodul es and nodules including hypermetabolic 1.6 x 1.1 cm enlarging left basilar nodule axial image 106. M ax SUV 4.51. Persistent mild to moderate left basilar linear scarring inferior to this. Tiny left-price ed pleural fluid collection is stable. Subcentimeter mild hypermetabolic focus right hilar level max SUV 3.27 on axial image 81. Remainder of the mediastinum and right lung shows no abnormal hypermetabolic uptake. ABDOMEN AND PELVIS: Superior to the bladder there is abnormal rectangular shaped hypermetabolic uptak e in the central aspect of the uterus, redemonstrated. Neoplasm at this level needs to be excluded. C orrelate clinically. No no areas of suspicious hypermetabolic uptake otherwise seen. No adrenal lois s. OSSEOUS STRUCTURES: No suspicious abnormal hypermetabolic uptake. OTHER CT: Tiny pericardial effusion current study. Tiny right-sided pelvic phlebolith. Mild multileve l spurring in the spine. Small fat-containing umbilical hernia. IMPRESSION: Left lung neoplastic progression with enlarging mildly hypermetabolic nodules noted as de tailed above. Attention to uterus as clinical correlation is necessary to exclude primary neoplasm si milar to prior.
== END | disposition home or self-care (01) ==
LOC: RADPETMAIN 11:00
PROVIDERS: ATTEND Radiology Radiation Oncology
DX: C34.12 Malignant neoplasm of upper lobe, left bronchus or lung (principal); K42.9 Umbilical hernia without obstruction or gangrene
CPT/HCPCS: 78815; A9552

== ENCOUNTER → 2021-03-28 | Outpatient (CLI) | payer MEDICARE, OTHER ==
--- NOTE | 2021-03-31 07:30 | PE ---
EXAMINATION TYPE: PET CT fusion skull to thigh DATE OF EXAM: 03/28/2021 COMPARISON: Prior PET/CT January 03, 2021 and older studies HISTORY: Left-sided lung cancer diagnosed June 12, 2018 with history of ongoing chemotherapy and r adiation treatment ending June. TECHNIQUE: Following the intravenous administration of 9.98 mCi of F-18 FDG, whole body images are p erformed from the skull base to the midthigh. Images are reviewed on the computer in the coronal, ax ial, and sagittal planes. Reconstructed rotating images are created on independent workstation and r eviewed on the computer. A localization and attenuation correction CT is performed in conjunction w ith the PET scan. Blood glucose level equals 101. SCAN: Subsequent Scan FINDINGS: Exam suboptimal due to patient's large body habitus. SKULL BASE AND NECK: No no areas of suspicious hypermetabolic adenopathy. CHEST, MEDIASTINUM, AND HILAR REGION: Stable fairly stable masslike low dense consolidation posterior aspect left upper lobe axial image 72 measuring approximately 2.9 x 2.0 cm max SUV along the inferio r medial aspect is 3.06 versus axial image 76 prior study max SUV is 3.71. Small focus of groundglass opacity with slight nodularity axial images 81 and 82 are seen on current study and stable. Perhaps inflammatory scarring as are ametabolic. There is stable more central 2.3 x 1.1 cm left lower lobe nodule current study axial image 98. Max BUSBY V current study is 3.36 versus 4.34 prior study. Stable adjacent micronodules and nodules including h ypermetabolic 1.4 cm peripheral left basilar nodule axial image 106. Max SUV is 3.25 versus 4.51 prio r study. Persistent mild to moderate left basilar linear scarring inferior to this. Tiny left-sided p leural fluid collection is stable. Subcentimeter mild hypermetabolic focus right hilar level prior study is ametabolic currently. Remainder of the mediastinum and right lung shows no new areas of abnormal hypermetabolic uptake. ABDOMEN AND PELVIS: Superior to the bladder there is abnormal rectangular shaped hypermetabolic uptak e in the central aspect of the uterus redemonstrated. Neoplasm at this level needs to be excluded. Co rrelate clinically. No new areas of suspicious hypermetabolic uptake otherwise seen. No adrenal masses. OSSEOUS STRUCTURES: No new areas of abnormal hypermetabolic uptake. OTHER CT: Tiny pericardial effusion redemonstrated. Tiny right-sided pelvic phlebolith. Mild multilev el spurring in the spine. Small fat-containing umbilical hernia. IMPRESSION: Overall positive treatment response as detailed above. Improving max SUV noted. Attention to uterus as clinical correlation is necessary to exclude primary neoplasm similar to prior studies.
== END | disposition home or self-care (01) ==
LOC: RADPETMAIN 12:34
PROVIDERS: ATTEND Internal Medicine Hematology & Oncology
DX: C34.82 Malignant neoplasm of overlapping sites of left bronchus and lung (principal)
CPT/HCPCS: 78815; A9552

== ENCOUNTER → 2021-07-25 | Outpatient (CLI) | payer MEDICARE, OTHER ==
--- NOTE | 2021-07-25 13:20 | PE ---
EXAMINATION TYPE: PET CT fusion skull to thigh DATE OF EXAM: 07/25/2021 COMPARISON: Prior PET/CT March 28, 2021 and older studies HISTORY: Left-sided Lung cancer progress study. Originally diagnosed 2018. Completed chemotherapy Jun TECHNIQUE: Following the intravenous administration of 9.98 mCi of F-18 FDG, whole body images are p erformed from the skull base to the midthigh. Images are reviewed on the computer in the coronal, ax ial, and sagittal planes. Reconstructed rotating images are created on independent workstation and r eviewed on the computer. A localization and attenuation correction CT is performed in conjunction w ith the PET scan. Blood glucose level equals 101. SCAN: Subsequent Scan FINDINGS: FINDINGS: Exam remains suboptimal due to patient's large body habitus. SKULL BASE AND NECK: No new areas of suspicious hypermetabolic adenopathy. CHEST, MEDIASTINUM, AND HILAR REGION: Fairly stable masslike low dense consolidation posterior aspect left upper lobe axial image 78 current study measuring approximately 2.6 x 2.6 cm with superior [place] gated extension and inferior nodular extension to the hilum redemonstrated. Lesion currently ametabol ic improved from prior. Small focus of groundglass opacity with slight nodularity axial images 86 and 87 are less prominent o n current study. Perhaps inflammatory scarring as remain ametabolic. There is less prominent more central 1.3 x 0.8 cm left lower lobe nodule current study axial image 10 4 that is ametabolic. Posterior-inferior nodules and/or nodular scarring is stable axial image 113 wi thout suspicious increased hypermetabolic uptake 1. Trace left-sided pleural fluid collection is stab le. Remainder of the mediastinum and right lung shows no new areas of abnormal hypermetabolic uptake. ABDOMEN AND PELVIS: Superior to the bladder there is abnormal rectangular shaped hypermetabolic uptak e in the central aspect of the uterus redemonstrated. Neoplasm at this level cannot be excluded. No new areas of suspicious hypermetabolic uptake otherwise seen. No adrenal masses. OSSEOUS STRUCTURES: No new areas of abnormal hypermetabolic uptake. OTHER CT: Tiny pericardial effusion redemonstrated. Low lung volumes again seen. Small-sized hiatal h ernia redemonstrated. Tiny right-sided pelvic phlebolith. Mild multilevel spurring in the spine. Tiny fat-containing umbili roseanne hernia. IMPRESSION: Overall positive treatment response as detailed above. No new or persistent areas of abno rmally increased hypermetabolic uptake
== END | disposition home or self-care (01) ==
LOC: RADPETMAIN 08:26
PROVIDERS: ATTEND Internal Medicine Hematology & Oncology
DX: C34.92 Malignant neoplasm of unspecified part of left bronchus or lung (principal); Z92.21 Personal history of antineoplastic chemotherapy
CPT/HCPCS: 78815; A9552

== ENCOUNTER → 2021-10-24 | Outpatient (CLI) | payer MEDICARE, OTHER ==
--- NOTE | 2021-10-24 12:49 | CA ---
Transthoracic Echo Report Name: Usha Kenny Age: 51 Gender: F : 1970 Exam Date: 10/24/2021 11:33 Exam Location: [facility] Ht (in): 64 Wt (lb): 315 Ordering Physician: Giovanni Becerra MD Attending/Referring Phys: Giovanni Becerra MD Manager Of Financial Reporting Franci Fairchild RDCS Procedure CPT: Indications: Z01.818 ENCOUNT FOR PREPROCEDURE EXAMINATION Cardiac Hx: Morbid Obesity Technical Quality: Fair Contrast 1: N/A Total Dose (mL): Contrast 2: Total Dose (mL): MEASUREMENTS (Male / Female) Normal Values 2D ECHO LV Diastolic Diameter PLAX 5.0 cm 4.2 - 5.9 / 3.9 - 5.3 cm LV Systolic Diameter PLAX 3.4 cm IVS Diastolic Thickness 0.9 cm 0.6 - 1.0 / 0.6 - 0.9 cm LVPW Diastolic Thickness 1.5 cm 0.6 - 1.0 / 0.6 - 0.9 cm LV Relative Wall Thickness 0.5 RV Internal Dim ED PLAX 2.8 cm LA Systolic Diameter LX 3.0 cm 3.0 - 4.0 / 2.7 - 3.8 cm M-MODE Aortic Root Diameter MM 3.4 cm AV Cusp Separation MM 2.6 cm DOPPLER MV Area PHT 6.2 cm??? Mitral E Point Velocity 77.0 cm/s Mitral A Point Velocity 115.9 cm/s Mitral E to A Ratio 0.7 MV Deceleration Time 121.7 ms FINDINGS Left Ventricle Normal Left ventricular size, wall thickness, systolic function with no obvious regional wall motion abnormalities. Right Ventricle Normal right ventricular size and function. Right ventricular systolic pressure within normal limits. Right Atrium Normal right atrial size. Left Atrium Normal left atrial size. Mitral Valve Mild mitral regurgitation. Aortic Valve Aortic valve sclerosis. Tricuspid Valve Structurally normal tricuspid valve. Pulmonic Valve Pulmonic valve not well visualized. Pericardium Echo free space anterior to the right ventricle likely represents a fat pad. Aorta Aortic root and proximal ascending aorta not well visualized. CONCLUSIONS Normal left ventricular ejection fraction 55-60% Mild mitral regurgitation Normal left ventricular wall thickness No pericardial effusion Previewed by: Dr. Brett Marks DO (Electronically Signed) Final Date: 24 October 2021 12:48
--- NOTE | 2021-10-26 10:13 | PE ---
EXAMINATION TYPE: PET CT fusion skull to thigh DATE OF EXAM: 10/24/2021 COMPARISON: Prior PET/CT July 25, 2021 and older studies. HISTORY: Left sided Lung cancer progress study. Originally diagnosed May 2018 completed chemoth erapy October 07, 2021. TECHNIQUE: Following the intravenous administration of 9.83 mCi of F-18 FDG, whole body images are p erformed from the skull base to the midthigh. Images are reviewed on the computer in the coronal, ax ial, and sagittal planes. Reconstructed rotating images are created on independent workstation and r eviewed on the computer. A localization and attenuation correction CT is performed in conjunction w ith the PET scan. Blood glucose level equals 116 SCAN: Subsequent Scan FINDINGS: FINDINGS: Exam remains suboptimal due to patient's large body habitus. SKULL BASE AND NECK: No new areas of suspicious hypermetabolic adenopathy. CHEST, MEDIASTINUM, AND HILAR REGION: Fairly stable masslike low dense consolidation posterior aspect left upper lobe axial image 72 current study measuring approximately 2.6 x 2.1 cm with superior [place] gated extension and inferior nodular extension to the hilum redemonstrated. Lesion currently ametabol ic stable from most recent prior. There is stable more central anterior 1.3 x 0.9 cm left lower lobe nodule or nodular thickening curre nt study axial image 98 that remains ametabolic. Posterior-inferior nodules and/or nodular scarring i s stable axial images 106 through 109 without suspicious increased hypermetabolic uptake . Trace left -sided basilar pleural fluid collection is stable. Remainder of the mediastinum and right lung shows no new areas of abnormal hypermetabolic uptake. ABDOMEN AND PELVIS: Superior to the bladder there is abnormal rectangular shaped hypermetabolic uptak e in the central aspect of the uterus redemonstrated. Neoplasm at this level cannot be excluded. No new areas of suspicious hypermetabolic uptake otherwise seen. No adrenal masses. OSSEOUS STRUCTURES: No new areas of abnormal hypermetabolic uptake. OTHER CT: Tiny pericardial effusion redemonstrated. Low lung volumes again seen. Small-sized hiatal h ernia redemonstrated. Tiny right-sided pelvic phlebolith. Mild multilevel spurring in the spine. Tiny fat-containing umbili roseanne hernia redemonstrated. IMPRESSION: No new or persistent areas of abnormally increased hypermetabolic uptake to suggest activ e neoplastic recurrence. Persistent abnormal uptake in the central uterus, endometrial neoplasm canno t be excluded.
== END | disposition home or self-care (01) ==
LOC: RADECHMAIN 11:15
PROVIDERS: ATTEND Internal Medicine Hematology & Oncology
DX: Z01.818 Encounter for other preprocedural examination (principal); C34.92 Malignant neoplasm of unspecified part of left bronchus or lung; I08.0 Rheumatic disorders of both mitral and aortic valves; Z92.21 Personal history of antineoplastic chemotherapy
CPT/HCPCS: 93306; 78815; A9552

== ENCOUNTER → 2022-01-30 | Outpatient (CLI) | payer MEDICARE, OTHER ==
--- NOTE | 2022-02-01 10:35 | PE ---
EXAMINATION TYPE: PET CT fusion skull to thigh DATE OF EXAM: 01/30/2022 CLINICAL INDICATION:Female, 51 years old with history of C34.90 Lung Cancer; TECHNIQUE: Following the intravenous administration of 12.7 mCi of F-18 FDG, whole body images are performed from the skull base to the midthigh. Images are reviewed on the computer in the coronal, a xial, and sagittal planes. Reconstructed rotating images are created on independent workstation and reviewed on the computer. A non-contrast CT is performed in conjunction with the PET scan. Glucose level 117 mg/dL COMPARISON: CT 08/20/2020, PET/CT 10/24/2021, FINDINGS: Mediastinal SUV mean is 2.2. Hepatic parenchyma SUV mean is 2.8. SKULL BASE AND NECK: No suspicious FDG activity. CHEST, MEDIASTINUM, AND HILAR REGION: No suspicious FDG activity. Postsurgical changes which do not d emonstrate increased FDG activity. ABDOMEN AND PELVIS: No suspicious FDG activity. Complete physiologic FDG activity within the endometr ium measuring up to max SUV 14.3. OSSEOUS STRUCTURES: No suspicious FDG activity. OTHER CT: Suspected postsurgical changes to the left lung with streaky atelectasis., Mild multilevel disc degeneration changes are seen throughout the spine. IMPRESSION: 1. Postsurgical changes to the lung without evidence of FDG activity above back on levels. Continued attention on follow-up imaging is recommended. 2. Endometrium FDG activity which is presumably physiologic. Correlate with patient's menstruation/m enopausal status. Correlation with direct visualization is recommended to rule out endometrial carcin suzy.
== END | disposition home or self-care (01) ==
LOC: RADPETMAIN 08:04
PROVIDERS: ATTEND Internal Medicine Hematology & Oncology
DX: C34.92 Malignant neoplasm of unspecified part of left bronchus or lung (principal)
CPT/HCPCS: 78815; A9552

== ENCOUNTER → 2022-04-24 | Outpatient (CLI) | payer MEDICARE, OTHER ==
--- NOTE | 2022-04-26 11:09 | PE ---
EXAMINATION TYPE: PET CT fusion skull to thigh DATE OF EXAM: 04/24/2022 CLINICAL INDICATION:Female, 52 years old with history of C34.90 Lung CA; TECHNIQUE: Following the intravenous administration of 10.1 mCi of F-18 FDG, whole body images are performed from the skull base to the midthigh. Images are reviewed on the computer in the coronal, a xial, and sagittal planes. Reconstructed rotating images are created on independent workstation and reviewed on the computer. A non-contrast CT is performed in conjunction with the PET scan. Glucose level 110 mg/dL COMPARISON: CT None, PET/CT most recent 01/30/2022 and priors dating back to 05/31/2020 FINDINGS: Mediastinal SUV mean is 2.2. Hepatic parenchyma SUV mean is 3.3. SKULL BASE AND NECK: No suspicious radiotracer activity. CHEST, MEDIASTINUM, AND HILAR REGION: No suspicious radiotracer activity. Posttreatment changes with streaky atelectasis in the left lung base. ABDOMEN AND PELVIS: No suspicious radiotracer activity. FDG activity within the endometrium max SUV 1 5.0, previously 14.3. OSSEOUS STRUCTURES: No suspicious radiotracer activity. OTHER CT: Fat-containing umbilical hernia. Heart is mildly enlarged for size. Posttreatment changes t o the left lung with streaky atelectasis. Mild multilevel disc degeneration changes are present. IMPRESSION: 1. Posttreatment changes to the lung without evidence of FDG activity above back on levels to sugges t recurrence. 2. Persistent endometrium FDG activity. Finding seen dating back to 05/31/2020. Clinical correlation a dvised, Correlation with direct visualization is recommended to rule out endometrial carcinoma and no t already performed.
== END | disposition home or self-care (01) ==
LOC: RADPETMAIN 12:57
PROVIDERS: ATTEND Internal Medicine Hematology & Oncology
DX: C34.82 Malignant neoplasm of overlapping sites of left bronchus and lung (principal); N85.8 Other specified noninflammatory disorders of uterus
CPT/HCPCS: 78815; A9552

== ENCOUNTER → 2022-08-14 | Outpatient (CLI) | payer MEDICARE, OTHER ==
--- NOTE | 2022-08-14 14:02 | PE ---
EXAMINATION TYPE: PET CT fusion skull to thigh DATE OF EXAM: 08/14/2022 COMPARISON: Prior PET/CT April 24, 2022 and older studies HISTORY: Left sided Lung cancer progress study. Originally diagnosed May 2018 completed most re cent chemotherapy July 29. History of radiation treatment 2020 TECHNIQUE: Following the intravenous administration of 12.18 mCi of F-18 FDG, whole body images are performed from the skull base to the midthigh. Images are reviewed on the computer in the coronal, a xial, and sagittal planes. Reconstructed rotating images are created on independent workstation and reviewed on the computer. A localization and attenuation correction CT is performed in conjunction with the PET scan. Blood glucose level was 95 SCAN: Subsequent Scan FINDINGS: SKULL BASE AND NECK: No new areas of suspicious hypermetabolic adenopathy. CHEST, MEDIASTINUM, AND HILAR REGION: Fairly stable masslike low dense consolidation posterior aspect left upper lobe axial image 66 current study measuring approximately 2.3 x 2.0 cm with some superior extension and inferior nodular extension to the hilum redemonstrated. Area of concern remains ametab olic and stable. Mild to moderate left basilar slightly thickened linear scarring and tiny left pleural fluid collecti on and/or pleural thickening is redemonstrated. No new hypermetabolic uptake at this level. Remainder of the mediastinum and right lung shows no new areas of abnormal hypermetabolic uptake. ABDOMEN AND PELVIS: Superior to the bladder there is abnormal rectangular shaped hypermetabolic uptak e in the central aspect of the uterus redemonstrated. The max SUV is 10.01 on current study. Neoplasm at this level cannot be excluded. No new areas of suspicious hypermetabolic uptake otherwise seen. No adrenal masses. OSSEOUS STRUCTURES: Focus of increased radiotracer uptake right mandible corresponding to lucent area with some adjacent sclerosis in the region of the right molar tooth favors infectious process. No additional areas of new abnormal hypermetabolic uptake. OTHER CT: Tiny pericardial effusion redemonstrated. Low lung volumes again seen. Small-sized hiatal h ernia redemonstrated. Tiny right-sided pelvic phlebolith. Mild multilevel spurring in the spine. Tiny fat-containing umbili roseanne hernia redemonstrated. IMPRESSION: No new or persistent areas of abnormally increased hypermetabolic uptake to suggest activ e neoplastic recurrence in the lungs. Persistent abnormal uptake in the central uterus, endometrial n eoplasm cannot be excluded. Correlate clinically. No significant change from most recent studies.
== END | disposition home or self-care (01) ==
LOC: RADPETMAIN 08:47
PROVIDERS: ATTEND Internal Medicine Hematology & Oncology
DX: C34.82 Malignant neoplasm of overlapping sites of left bronchus and lung (principal); R93.89 Abnormal findings on diagnostic imaging of other specified body structures; Z92.3 Personal history of irradiation
CPT/HCPCS: 78815; A9552

== ENCOUNTER → 2022-11-27 | Outpatient (CLI) | payer MEDICARE, OTHER ==
--- NOTE | 2022-11-29 14:34 | PE ---
EXAMINATION TYPE: PET CT fusion skull to thigh DATE OF EXAM: 11/27/2022 COMPARISON: 08/20/2020 Prior PET/CT: 08/14/2022 HISTORY: Lung cancer TECHNIQUE: Following the intravenous administration of 11.7 mCi of F-18 FDG, whole body images are p erformed from the skull base to the midthigh. Images are reviewed on the computer in the coronal, ax ial, and sagittal planes. Reconstructed rotating images are created on independent workstation and r eviewed on the computer. A localization and attenuation correction CT is performed in conjunction w ith the PET scan. DLP: 588.02 mGycm SCAN: Subsequent Blood glucose: 98 mg/dL Average Mediastinum SUV: 1.61 Average Liver SUV: 2.35 FINDINGS: NECK: No abnormal uptake THORAX: There is increased radiotracer accumulation in the aortopulmonic window with an SUV value of 2.41 this extends into the left suprahilar region. This appears to be new from comparison. Image 67 The area of increased density adjacent to the posterior aortic arch has intermediate SUV value 1.76, which has not increased from prior study. Some paraspinal uptake is present which may be muscular in nature., Image 74., SUV 2.31 ABDOMEN: No abnormal uptake PELVIS: No abnormal uptake OSSEOUS STRUCTURES: There is a focus of radiotracer accumulation near the lesser trochanter on the le ft hip with an SUV value of 1.95. Image 2:30. Some increased uptake is within the right proximal diap hyseal femur, SUV value 2.37, image 226 some increased uptake may be in the superior left acetabulum. There is increased uptake within the left medial iliac wing, CVA 2.69. There is uptake within the L5 vertebral body SUV value 2.14 image 176. Some increased uptake appears to be within the L3 vertebral body, image [address]: Minimal pericardial effusion. Minimal left pleural effusion is present. COMPARISON: Findings are subtly changed from comparison IMPRESSION: 1. Appears to be some subtle increased uptake within the aortopulmonic window region which is new fro m comparison. The uptake within the soft tissue density adjacent to the posterior aortic arch however is not increased. Direct extension of neoplasm into the aortopulmonic window should be considered. S hort-term follow-up is recommended. 2. Subtle diffuse mild increased uptake within osseous structures discussed above. This is a change f rom comparison. Early metastasis is not excluded. Consider correlation with nuclear medicine bone sca n. 3. Small left pleural effusion with minimal pericardial effusion.
== END | disposition home or self-care (01) ==
LOC: RADPETMAIN 10:50
PROVIDERS: ATTEND Internal Medicine Hematology & Oncology
DX: C34.82 Malignant neoplasm of overlapping sites of left bronchus and lung (principal); J90 Pleural effusion, not elsewhere classified; I31.39 Other pericardial effusion (noninflammatory); J98.4 Other disorders of lung
CPT/HCPCS: 78815; A9552

== ENCOUNTER → 2023-04-23 | Outpatient (CLI) | payer MEDICARE, OTHER ==
--- NOTE | 2023-04-23 14:47 | US ---
EXAMINATION TYPE: US kidneys/renal and bladder DATE OF EXAM: 04/23/2023 COMPARISON: CT 2020, PET CT 2021 CLINICAL INDICATION: Female, 53 years old with history of C34.90 LUNG CA; Stage 4 lung cancer. On [place] mo. EXAM MEASUREMENTS: Right Kidney: 9.1 x 3.5 x 3.7 cm Left Kidney: 10.1 x 4.7 x 4.9 cm Exam is very limited due to great amount of gas. Right Kidney: Limited. No hydronephrosis or masses seen Left Kidney: Limited. No hydronephrosis or masses seen Bladder: Appears wnl Bilateral Jets seen: Yes IMPRESSION: No definitive evidence of hydronephrosis or shadowing renal stones.
== END | disposition home or self-care (01) ==
LOC: RADUSWWP 12:39
PROVIDERS: ATTEND Internal Medicine Hematology & Oncology
DX: C34.90 Malignant neoplasm of unspecified part of unspecified bronchus or lung (principal); R94.4 Abnormal results of kidney function studies
CPT/HCPCS: 76770

== ENCOUNTER → 2023-05-27 | Outpatient (CLI) | payer MEDICARE, OTHER ==
--- NOTE | 2023-05-30 12:55 | PE ---
EXAMINATION TYPE: PET CT fusion skull to thigh DATE OF EXAM: 05/27/2023 COMPARISON: No recent CT Prior PET/CT: 02/19/2023 HISTORY: Lung cancer TECHNIQUE: Following the intravenous administration of 11.46 mCi of F-18 FDG, whole body images are performed from the skull base to the midthigh. Images are reviewed on the computer in the coronal, a xial, and sagittal planes. Reconstructed rotating images are created on independent workstation and reviewed on the computer. A localization and attenuation correction CT is performed in conjunction with the PET scan. DLP: 926.18 mGycm SCAN: Subsequent Blood glucose: 96 mg/dL Average Mediastinum SUV: 2.02 Average Liver SUV: 2.87 FINDINGS: NECK: There are multiple bilateral areas of increased signal within the neck. No definite lymph node s are identified. Consider brown fat uptake. SUV uptake is in the approximate SUV of 7. THORAX: Suspicious uptake extending towards the mediastinum is not identified on the current examinat ion. Note is made of multiple scattered costovertebral junction areas of uptake. Some periaortic upta ke may be present as well. Uptake in the superior segment. Corresponding lymph nodes are not identifi ed. ABDOMEN: No abnormal uptake PELVIS: Uptake within the endometrial canal remains present. OSSEOUS STRUCTURES: No abnormal uptake LOCALIZATION CT: Moderate right pleural effusion is present. Moderate pericardial effusion is evident COMPARISON: Costovertebral uptake and uptake within the bilateral neck is an interval finding. Consid er brown fat and inflammatory change involvement. Corresponding suspicious mass to suggest metastasis is not identified. Short-term follow-up is recommended. IMPRESSION: 1. Multiple areas of uptake within the neck and costovertebral junctions symmetrical bilateral felt t o be artifactual. 2. No recurrent left lung uptake identified. 3. Persistent uptake within the endometrial canal of the uterus. 4. New moderate right pleural effusion with a moderate pericardial effusion.
== END | disposition home or self-care (01) ==
LOC: RADPETMAIN 09:20
PROVIDERS: ATTEND Internal Medicine Hematology & Oncology
DX: C34.32 Malignant neoplasm of lower lobe, left bronchus or lung (principal); J90 Pleural effusion, not elsewhere classified; I31.39 Other pericardial effusion (noninflammatory)
CPT/HCPCS: 78815; A9552

== ENCOUNTER 2023-06-14 08:40 | Day surgery (SDC) | payer MEDICARE, OTHER ==
[2023-06-14 09:45] LABS: Mean Platelet Volume 9.7; Platelet Count 137 k/uL (150-450)
[2023-06-14 09:46] VITALS: TEMP 97.9
[2023-06-14 10:00] LABS: Prothrombin Time 10.6 sec (10.0-12.5)
[2023-06-14 10:34] VITALS: RESP 16
--- NOTE | 2023-06-14 10:43 | XR ---
EXAMINATION TYPE: XR chest 1V portable DATE OF EXAM: 06/14/2023 COMPARISON: 1:30 06/13/1918 INDICATION: Post right thoracentesis TECHNIQUE: Single frontal view of the chest is obtained. FINDINGS: The heart size is normal. The pulmonary vasculature is normal. The lungs are clear. No pneumothorax evident. Small left pleural effusion is present. Minimal blunting of the right costop hrenic angle is present. IMPRESSION: 1. No pneumothorax postthoracentesis. Small left and minimal right residual fluid may be present.
[2023-06-14 10:58] VITALS: BP 111/71; PULSE 111
--- NOTE | 2023-06-14 11:52 | US ---
EXAMINATION TYPE: US thoracentesis DATE OF EXAM: 06/14/2023 10:32 AM CLINICAL INDICATION:Female, 53 years old with history of J91.8 PLEURAL EFFUSION IN OTHER CONDITIONS C LASSIF; COMPARISON: Pet/CT 05/27/2023 ATTENDING: Dr. Abhi Fisher PROCEDURE: Informed consent was obtained. The risks of the procedure were extensively explained incl uding risk of pneumothorax and need for chest tube placement. Procedure was performed in the Ultraso und procedure suite. Ultrasound imaging of the chest demonstrates right pleural effusion. An approp riate access site was localized to the posterior right pleural space. Timeout was taken per protocol. The skin was prepped and draped in the usual sterile fashion and then locally anesthetized with 1% lidocaine. The pleural cavity was then accessed via a 5-Armenian one-step needle/catheter. Approximat nadine 310 cc of dark orange colored fluid was obtained. Samples were sent to the lab for analysis. Pos tprocedural imaging of the chest demonstrate a decreased amount of pleural fluid. Patient tolerated procedure well without immediate complication. Hemostasis at the procedural site w as obtained with a sterile bandage placed. Immediate following the procedure, an inspiratory and expi ratory chest x-ray was reviewed. No post procedure pneumothorax was identified. The patient was monit ored in the holding area for approximately one hour following the procedure and was subsequently disc harged in stable condition. IMPRESSION: Ultrasound guided thoracentesis, with approximately 310 cc of fluid drained. Pathology r esults pending. No immediate complications were evident.
== END 2023-06-14 10:56 | disposition home or self-care (01) ==
LOC: RADPROMAIN 08:40
PROVIDERS: ATTEND Internal Medicine Hematology & Oncology
DX: J90 Pleural effusion, not elsewhere classified (principal)
CPT/HCPCS: 32555; 36415; 71045; 85049; 85610; 88108; 88305; 88341; 88342

== ENCOUNTER → 2023-06-16 | Outpatient (CLI) | payer MEDICARE, OTHER ==
--- NOTE | 2023-06-17 10:45 | CA ---
Transthoracic Echo Report Name: Usha Kenny Age: 53 Gender: F : 1970 Exam Date: 06/16/2023 14:10 Exam Location: [facility] Ht (in): 64 Wt (lb): 235 Ordering Physician: Giovanni Becerra MD Attending/Referring Phys: Pump Tender Charity Hu [facility] Procedure CPT: Indications: Z01.818 pre chemo Cardiac Hx: Technical Quality: Fair Contrast 1: Total Dose (mL): Contrast 2: Total Dose (mL): MEASUREMENTS (Male / Female) Normal Values 2D ECHO LV Diastolic Diameter PLAX 4.4 cm 4.2 - 5.9 / 3.9 - 5.3 cm LV Systolic Diameter PLAX 3.1 cm IVS Diastolic Thickness 0.9 cm 0.6 - 1.0 / 0.6 - 0.9 cm LVPW Diastolic Thickness 1.0 cm 0.6 - 1.0 / 0.6 - 0.9 cm LV Relative Wall Thickness 0.4 LVOT Diameter 2.0 cm LV Diastolic Volume MOD BP 77.8 cm??? 67 - 155 / 56 - 104 cm??? LV Systolic Volume MOD BP 38.0 cm??? 22 - 58 / 19 - 49 cm??? LV Ejection Fraction MOD BP 51.2 % >= 55 % LV Cardiac Index MOD BP 1592.2 cm???/min???m??? LV Diastolic Volume MOD 4C 82.2 cm??? LV Systolic Volume MOD 4C 34.6 cm??? LV Ejection Fraction MOD 4C 57.9 % LV Cardiac Index MOD 4C 1905.6 cm???/min???m??? LV Diastolic Length 4C 7.1 cm LV Systolic Length 4C 5.7 cm LV Diastolic Volume MOD 2C 73.4 cm??? LV Systolic Volume MOD 2C 37.4 cm??? LV Ejection Fraction MOD 2C 49.1 % LV Cardiac Index MOD 2C 1440.6 cm???/min???m??? LV Diastolic Length 2C 7.1 cm LV Systolic Length 2C 6.5 cm Ascending Aorta Diameter 3.7 cm M-MODE Aortic Root Diameter MM 2.7 cm LA Systolic Diameter MM 4.1 cm LA Ao Ratio MM 1.6 AV Cusp Separation MM 2.1 cm DOPPLER AV Peak Velocity 162.9 cm/s AV Peak Gradient 10.6 mmHg AV Mean Velocity 105.1 cm/s AV Mean Gradient 5.3 mmHg AV Velocity Time Integral 26.7 cm LVOT Peak Velocity 125.0 cm/s LVOT Peak Gradient 6.3 mmHg LVOT Velocity Time Integral 23.2 cm LVOT Stroke Volume 75.0 cm??? LVOT Stroke Volume Index 35.8 ml/m??? LVOT Cardiac Index 2999.8 cm???/min???m??? AV Area Cont Eq vti 2.8 cm??? AV Area Cont Eq pk 2.5 cm??? Mitral E Point Velocity 66.4 cm/s Mitral A Point Velocity 101.2 cm/s Mitral E to A Ratio 0.7 MV Deceleration Time 252.1 ms LV E' Lateral Velocity 9.1 cm/s Mitral E to LV E' Lateral Ratio 7.3 LV E' Septal Velocity 7.7 cm/s Mitral E to LV E' Septal Ratio 8.6 Right Atrial Pressure 3.0 mmHg FINDINGS Left Ventricle Mildly increased posterior wall thickness. Left ventricular cavity size normal. Low normal left ventricular systolic function with no obvious regional wall motion abnormalities. Left ventricular ejection fraction is estimated at 50%. Right Ventricle Normal right ventricular size. Right Atrium Normal right atrial size. Left Atrium Normal left atrial size. Mitral Valve Structurally normal mitral valve. Trace mitral regurgitation. Aortic Valve Trileaflet aortic valve. No aortic valve stenosis or regurgitation. Tricuspid Valve Structurally normal tricuspid valve. No tricuspid regurgitation. Pulmonic Valve Pulmonic valve not well visualized. Pericardium Small pericardial effusion. Aorta Normal size aortic root and proximal ascending aorta. CONCLUSIONS Technically difficult study for interpretation Low-normal LV systolic function No significant valvular abnormalities Small pericardial effusion Previewed by: Dr. Luis Eduardo Lea MD (Electronically Signed) Final Date: 17 June 2023 10:44
== END | disposition home or self-care (01) ==
LOC: RADECHMAIN 13:48
PROVIDERS: ATTEND Internal Medicine Hematology & Oncology
DX: Z01.818 Encounter for other preprocedural examination (principal); C34.90 Malignant neoplasm of unspecified part of unspecified bronchus or lung; I31.39 Other pericardial effusion (noninflammatory); J91.0 Malignant pleural effusion; R11.0 Nausea; Z71.3 Dietary counseling and surveillance
CPT/HCPCS: 93306

== ENCOUNTER → 2023-09-16 | Outpatient (CLI) | payer MEDICARE, OTHER ==
--- NOTE | 2023-09-16 20:56 | PE ---
EXAMINATION TYPE: PET CT fusion skull to thigh DATE OF EXAM: 09/16/2023 COMPARISON: No recent pertinent CT Prior PET/CT: 05/27/2023 HISTORY: Lung cancer TECHNIQUE: Following the intravenous administration of 9.31 mCi of F-18 FDG, whole body images are p erformed from the skull base to the midthigh. Images are reviewed on the computer in the coronal, ax ial, and sagittal planes. Reconstructed rotating images are created on independent workstation and r eviewed on the computer. A localization and attenuation correction CT is performed in conjunction w ith the PET scan. DLP: 971.56 mGycm SCAN: Subsequent Blood glucose: 87 mg/dL Average Mediastinum SUV: 2.9 Average Liver SUV: 4.04 FINDINGS: NECK: Tiny posterior left neck focus of uptake may be present, images 37, SUV 4.84. There is a focus of radiotracer within the lower left neck may be a small lymph node, SUV 4.81, image 54. Slightly lower there is an additional lymph node with uptake measuring 6.43, image 58. Some mild er diffuse uptake may be adjacent. THORAX: The left apical mass at the level of the aortic arch has mild uptake with an SUV of 4.48, example any ge 76. This extends towards the left suprahilar region. There are a couple of foci of uptake in the posterior medial costovertebral junction. Image 66. On t he left this has SUV of 12.68 and on the right this measures 7.99. These symmetrical extending throug h the thoracic region and could be related to costovertebral musculature. There is a small focus of radiotracer with a left infrahilar region, image 88, SUV 4.39. Tiny metasta sis is not excluded. ABDOMEN: There is a focus of radiotracer in the posterior right lobe liver at the diaphragm, image 11 7, SUV 7.4. There is a heterogeneous appearance to the liver with additional punctate areas of uptake . Tiny metastasis are not excluded. Consider MRI with contrast if closer evaluation would be of bene fit. PELVIS: No abnormal uptake OSSEOUS STRUCTURES: No abnormal uptake LOCALIZATION CT: There is a small right pleural effusion. Small pericardial effusion is present. COMPARISON: Uptake within the neck and costovertebral junctions was present previously and may be sli ghtly diminished over the interval. Artifact from brown fat within the neck and inflammatory changes at the costovertebral junctions felt to be more likely than metastasis which cannot be entirely exclu ded. Left apical mass adjacent to the posterior aortic arch measures 4.5 x 2.6 cm. Previous measurement 3. 6 x 2.4 cm. Persistent uptake within the endometrial canal remains present. IMPRESSION: 1. Minimal uptake within the left apical mass which has enlarged over the interval. 2. No new suspicious metastatic lesions. 3. Moderate right pleural effusion. 4. Persistent uptake within the bilateral neck and bilateral costovertebral junctions. These areas ar e felt more likely be nonneoplastic.
== END | disposition home or self-care (01) ==
LOC: RADPETMAIN 13:51
PROVIDERS: ATTEND Internal Medicine Hematology & Oncology
DX: C34.32 Malignant neoplasm of lower lobe, left bronchus or lung (principal); J90 Pleural effusion, not elsewhere classified
CPT/HCPCS: 78815; A9552

== ENCOUNTER → 2024-04-06 | Outpatient (CLI) | payer MEDICARE, OTHER ==
--- NOTE | 2024-04-10 13:12 | PE ---
EXAMINATION TYPE: PET CT fusion skull to thigh DATE OF EXAM: 04/06/2024 CLINICAL INDICATION:Female, 54 years old with history of C3421 Lung ca; TECHNIQUE: Following the intravenous administration of 11.35 mCi of F-18 FDG, whole body images are performed from the skull base to the midthigh. Images are reviewed on the computer in the coronal, axial, and sagittal planes. Reconstructed rotating images are created on independent workstation and reviewed on the computer. A non-contrast CT is performed in conjunction with the PET scan. Glucose level 101 mg/dL CT DLP: 1014 mGycm, Automated exposure control for dose reduction was used. COMPARISON: CT None, PET/CT 12/30/2023, MRI: None FINDINGS: Mediastinal SUV mean is 3.5. Hepatic parenchyma SUV mean is 4.7. SKULL BASE AND NECK: * No suspicious radiotracer activity. * Brown fat uptake in the base of the neck bilaterally CHEST, MEDIASTINUM, AND HILAR REGION: Scattered pulmonary nodules have increased metabolic activity. Examples include: * Left apical mass measuring again identified measuring 37 x 28 mm which is similar given difference s in technique max SUV 11.1, previously 8.5. Other patchy uptake seen more distally and superiorly wi th somewhat linear pathology max SUV 7.5 previously 6.6 pain * Right lower lung pulmonary nodule Max SUV 7.7 measuring 9 mm. ABDOMEN AND PELVIS: 1. There is increasing uptake along the endometrium max SUV 19.2. Previously 13.6 finding seen datin g back to 2020. MUSCULOSKELETAL STRUCTURES: No suspicious radiotracer activity. OTHER CT: Small right pleural effusion. Multiple pulmonary nodules present. Cholelithiasis. IMPRESSION: 1. Progression of disease with increasing metabolic activity of scattered pulmonary nodules. The siz es appear relatively stable. 2. Similar brown fat within the head neck and along the sympathetic chains. 3. Redemonstration of FDG activity correlate for endometrial carcinoma. Findings have been seen dati ng back to at least 2020. [facility], , 04/10/2024 1:09 PM
== END | disposition home or self-care (01) ==
LOC: RADPETMAIN 11:37
PROVIDERS: ATTEND Internal Medicine Hematology & Oncology
DX: C34.82 Malignant neoplasm of overlapping sites of left bronchus and lung (principal); R91.8 Other nonspecific abnormal finding of lung field
CPT/HCPCS: 78815; A9552

== ENCOUNTER → 2024-05-11 | Outpatient (CLI) | payer MEDICARE, OTHER ==
--- NOTE | 2024-05-11 15:50 | CA ---
Transthoracic Echo Report Name: Usha Kenny Age: 54 Gender: F : 1970 Exam Date: 05/11/2024 13:35 Exam Location: [facility] Ht (in): 64 Wt (lb): 280 Ordering Physician: Giovanni Becerra MD Attending/Referring Phys: It Infrastructure Consultant Viji Hester RDCS Procedure CPT: Indications: C56.3 OVARIAN CANCER Cardiac Hx: Technical Quality: Fair Contrast 1: Total Dose (mL): Contrast 2: Total Dose (mL): MEASUREMENTS (Male / Female) Normal Values 2D ECHO LV Diastolic Diameter PLAX 5.4 cm 4.2 - 5.9 / 3.9 - 5.3 cm LV Systolic Diameter PLAX 4.5 cm IVS Diastolic Thickness 0.7 cm 0.6 - 1.0 / 0.6 - 0.9 cm LVPW Diastolic Thickness 1.0 cm 0.6 - 1.0 / 0.6 - 0.9 cm LV Relative Wall Thickness 0.3 RV Internal Dim ED PLAX 3.1 cm LA Systolic Diameter LX 3.8 cm 3.0 - 4.0 / 2.7 - 3.8 cm LV Diastolic Volume MOD 4C 55.1 cm??? LV Systolic Volume MOD 4C 24.3 cm??? LV Ejection Fraction MOD 4C 56.0 % LV Cardiac Index MOD 4C 1048.4 cm???/min???m??? LV Diastolic Length 4C 6.5 cm LV Systolic Length 4C 5.6 cm LV Diastolic Volume MOD 2C 69.9 cm??? LV Systolic Volume MOD 2C 33.9 cm??? LV Ejection Fraction MOD 2C 51.5 % LV Cardiac Index MOD 2C 1224.9 cm???/min???m??? LV Diastolic Length 2C 7.3 cm LV Systolic Length 2C 5.7 cm LA Volume 53.3 cm??? 18 - 58 / 22 - 52 cm??? LA Volume Index 21.6 cm???/m??? 16 - 28 cm???/m??? M-MODE Aortic Root Diameter MM 3.0 cm AV Cusp Separation MM 2.2 cm DOPPLER AV Peak Velocity 159.4 cm/s AV Peak Gradient 10.2 mmHg MV Area PHT 4.4 cm??? Mitral E Point Velocity 80.6 cm/s Mitral A Point Velocity 93.1 cm/s Mitral E to A Ratio 0.9 MV Deceleration Time 173.3 ms FINDINGS Left Ventricle Left ventricular ejection fraction is estimated at 55-60 %. Mild left ventricular dilatation. Left ventricular wall thickness normal. Normal left ventricular wall motion. Right Ventricle Moderate right ventricular dilatation. Unable to estimate the right ventricular systolic pressure. Right Atrium Normal right atrial size. No right atrial thrombus or mass seen. Left Atrium Mildly increased left atrial volume. No left atrial thrombus or mass present. Mitral Valve Structurally normal mitral valve. No mitral stenosis, regurgitation or prolapse. Aortic Valve Trileaflet aortic valve. No aortic valve stenosis or regurgitation. Tricuspid Valve Structurally normal tricuspid valve. No tricuspid stenosis, regurgitation or prolapse. Pulmonic Valve Structurally normal pulmonic valve. No pulmonic regurgitation. Pericardium No pericardial or pleural effusion. Aorta Normal size aortic root and proximal ascending aorta. CONCLUSIONS Normal LV systolic function Previewed by: Dr. Anson Chu MD (Electronically Signed) Final Date: 11 May 2024 15:49
== END | disposition home or self-care (01) ==
LOC: RADECHMAIN 13:26
PROVIDERS: ATTEND Internal Medicine Hematology & Oncology
DX: Z01.818 Encounter for other preprocedural examination (principal); C34.90 Malignant neoplasm of unspecified part of unspecified bronchus or lung; J91.0 Malignant pleural effusion; I31.39 Other pericardial effusion (noninflammatory); Z71.3 Dietary counseling and surveillance
CPT/HCPCS: 93306

== ENCOUNTER → 2024-11-09 | Outpatient (CLI) | payer MEDICARE, OTHER ==
--- NOTE | 2024-11-12 22:09 | PE ---
EXAMINATION TYPE: PET CT fusion skull to thigh DATE OF EXAM: 11/09/2024 COMPARISON: No recent pertinent CT Prior PET/CT: 07/06/2024 CLINICAL INDICATION: Female, 54 years old with history of C34.82 lung ca, TECHNIQUE: Following the intravenous administration of 12.3 mCi of F-18 FDG, whole body images are p erformed PET CT fusion skull to thigh. Images are reviewed on the computer in the coronal, axial, an d sagittal planes. Reconstructed rotating images are created on independent workstation and reviewed on the computer. A localization and attenuation correction CT is performed in conjunction with the PET scan. DLP: 1903.9 mGycm SCAN: Subsequent Blood glucose: 107 mg/dL Average Mediastinum SUV: 3.01 Average Liver SUV: 4.27 FINDINGS: NECK: No suspicious uptake THORAX: There is increased uptake within the left upper lobe mass. Image 71, SUV 10.05 additional ant erior mass uptake is present image 75, SUV 9.25. This appears more focal in a smaller volume than the previous exam. Prior SUV of 10.05. There is a punctate area within the anterior left lung, image 79, SUV 6.39. There is a focus of radiotracer within a small nodule within the lateral left lung, image 82, SUV 7.12 a second nodule slightly more inferior, image 84, SUV 5.64. There is a posterior inferio r left lobe nodule image 95 with an SUV of 7. Left basilar nodule appears to be present, image 99, BUSBY V 6.36. Left posterior lateral lung nodule, image 105, SUV 7.1. Previous SUV 7.9. Additional pleural- based posterior lateral left lung base nodule image 110, SUV 5.26 ABDOMEN: Liver is heterogenous. Small metastasis would be difficult to exclude. PELVIS: Hyperintense uptake is within the endometrial canal. OSSEOUS STRUCTURES: No abnormal uptake LOCALIZATION CT: Left lung mass and multiple nodules are evident on the left corresponding to the abn ormal uptake. Right pleural effusion is present. COMPARISON: Distribution is stable. IMPRESSION: 1. Multiple small nodules within the left lung with abnormal uptake compatible with metastatic diseas e. The uptake within the left upper lobe lung mass appears more focal and less distributed than prior . 2. Persistent uptake within the endometrial canal. [facility], Workstation: [id number], 11/12/2024 10:07 PM
== END | disposition home or self-care (01) ==
LOC: RADPETMAIN 10:48
PROVIDERS: ATTEND Internal Medicine Hematology & Oncology
DX: C34.82 Malignant neoplasm of overlapping sites of left bronchus and lung (principal); R91.8 Other nonspecific abnormal finding of lung field
CPT/HCPCS: 78815; A9552

== ENCOUNTER → 2024-12-18 | Outpatient (CLI) | payer MEDICARE, OTHER ==
--- NOTE | 2024-12-18 13:05 | CA ---
Transthoracic Echo Report Name: Usha Kenny Age: 54 Gender: F : 1970 Exam Date: 12/18/2024 11:16 Exam Location: [facility] Ht (in): 64 Wt (lb): 280 Ordering Physician: Giovanni Becerra MD Attending/Referring Phys: Nonprofit Manager Julisa Chand RDCS Procedure CPT: Indications: Z01.818 Chemo Cardiac Hx: Lung Cancer Technical Quality: Fair Contrast 1: Total Dose (mL): Contrast 2: Total Dose (mL): MEASUREMENTS (Male / Female) Normal Values 2D ECHO LV Diastolic Diameter PLAX 4.1 cm 4.2 - 5.9 / 3.9 - 5.3 cm LV Systolic Diameter PLAX 2.7 cm IVS Diastolic Thickness 1.0 cm 0.6 - 1.0 / 0.6 - 0.9 cm LVPW Diastolic Thickness 1.1 cm 0.6 - 1.0 / 0.6 - 0.9 cm LV Relative Wall Thickness 0.5 RV Internal Dim ED PLAX 1.6 cm LA Systolic Diameter LX 3.1 cm 3.0 - 4.0 / 2.7 - 3.8 cm LV Diastolic Volume MOD BP 38.0 cm??? 67 - 155 / 56 - 104 cm??? LV Systolic Volume MOD BP 13.7 cm??? 22 - 58 / 19 - 49 cm??? LV Ejection Fraction MOD BP 63.9 % >= 55 % LV Cardiac Index MOD BP 1050.4 cm???/min???m??? LV Diastolic Volume MOD 4C 33.8 cm??? LV Systolic Volume MOD 4C 13.2 cm??? LV Ejection Fraction MOD 4C 60.9 % LV Cardiac Index MOD 4C 890.7 cm???/min???m??? LV Diastolic Length 4C 6.8 cm LV Systolic Length 4C 5.0 cm LV Diastolic Volume MOD 2C 44.7 cm??? LV Systolic Volume MOD 2C 14.0 cm??? LV Ejection Fraction MOD 2C 68.8 % LV Cardiac Index MOD 2C 1332.2 cm???/min???m??? LV Diastolic Length 2C 6.8 cm LV Systolic Length 2C 5.2 cm Ascending Aorta Diameter 3.2 cm M-MODE Aortic Root Diameter MM 3.1 cm LA Systolic Diameter MM 3.6 cm LA Ao Ratio MM 1.2 AV Cusp Separation MM 1.8 cm DOPPLER AV Peak Velocity 159.0 cm/s AV Peak Gradient 10.1 mmHg Mitral E Point Velocity 92.1 cm/s Mitral A Point Velocity 110.1 cm/s Mitral E to A Ratio 0.8 MV Deceleration Time 218.1 ms MV E' Velocity 7.6 cm/s Mitral E to MV E' Ratio 12.1 TR Peak Velocity 312.6 cm/s TR Peak Gradient 39.1 mmHg Right Ventricular Systolic Press 49.1 mmHg FINDINGS Left Ventricle Left ventricular ejection fraction is estimated at 55-60%. Mildly increased posterior wall thickness. Normal left ventricular systolic function with no obvious regional wall motion abnormalities. Left ventricular cavity size normal. Borderline normal average global longitudinal strain of the left ventricle with a value of - 18.4 %. Right Ventricle Normal right ventricular size and function. Moderate pulmonary hypertension. Right Atrium Normal right atrial size. Left Atrium Normal left atrial size. Mitral Valve Structurally normal mitral valve. Mild mitral regurgitation. No mitral stenosis. Aortic Valve Trileaflet aortic valve. No aortic valve stenosis or regurgitation. Tricuspid Valve Structurally normal tricuspid valve. [id number] tricuspid regurgitation. No tricuspid stenosis. Pulmonic Valve Structurally normal pulmonic valve. Trace pulmonic regurgitation. No pulmonic stenosis. Pericardium No pericardial or pleural effusion. Aorta Normal size aortic root and proximal ascending aorta. CONCLUSIONS 1. Normal left ventricular size and systolic function with average global longitudinal strain of -18.4% 2. Mild mitral regurgitation 3. Mild to moderate tricuspid regurgitation with moderate pulmonary hypertension Previewed by: Dr. Tee Chavez MD (Electronically Signed) Final Date: 18 December 2024 13:04
== END | disposition home or self-care (01) ==
LOC: RADECHMAIN 10:51
PROVIDERS: ATTEND Internal Medicine Hematology & Oncology
DX: Z01.818 Encounter for other preprocedural examination (principal); N18.9 Chronic kidney disease, unspecified; I31.39 Other pericardial effusion (noninflammatory); C34.90 Malignant neoplasm of unspecified part of unspecified bronchus or lung; J91.0 Malignant pleural effusion; I08.1 Rheumatic disorders of both mitral and tricuspid valves; I27.20 Pulmonary hypertension, unspecified; Z71.3 Dietary counseling and surveillance
CPT/HCPCS: 93306